=== PATIENT | female | born 1975 | race Caucasian/White ===

== ENCOUNTER 2016-04-25 09:40 | Outpatient (RCR) | payer MEDICARE, MEDICAID ==
[~2016-04-25 09:40] MED LIST: /ADVA50050; /ADVA50050 IN; /LAMO10TA OR; ABIL10TA OR; ADVAIR HFA; ALBU17IN2; ALBU17IN2 IN; AMBI10TA OR; AMIT25TA2 OR; ATIV1TAB2; CETI10TA OR; COLA100C2 OR; DEPA250T2 OR; DUONSOL IN; EFFE150C; EFFE150C OR; EFFE75CA75; EFFEXOR XR; FEXO30TA; FLECTOR; FLEXERIL; FLEXERIL PO; GAS-80CH; HALO10TA4 OR; IBUP600T OR; INVE6TAB3; KLON0.5T; KLON0.5T OR; KLON1TAB OR; LORA2TAB; NICO7DIS4 TD; PRIL40CA; PRIL40CA OR; PROV90AE; RISP2TAB12; RISP3TAB16; RISP4TAB; RISP4TAB OR; RITA20TA OR; SERO200T OR; TRAM50TA2; TRAZ100T; TRAZ150T; ULTRTA; ULTRTA OR
[2016-04-27] MEDS ORDERED: SYMB16INH INH (01:02)
[2016-04-27] MEDS ORDERED: CYMB60CA3 PO (01:02)
[2016-04-27] MEDS ORDERED: CYCL10TA PO (01:02)
[2016-04-27] MEDS ORDERED: IPRASOL4 INH (01:02)
[2016-04-27] MEDS ORDERED: KLON1TAB PO (01:02)
[2016-04-27] MEDS ORDERED: FLON1SPR (01:02)
[2016-04-27] MEDS ORDERED: LAMI1TAB8 PO (01:02)
[2016-04-27] MEDS ORDERED: VITA100037 PO (01:02)
[2016-04-27] MEDS ORDERED: SERO400T PO (01:02)
== END 2016-04-26 ==
LOC: M OT 09:40
PROVIDERS: ATTEND Nurse Practitioner Family
DX: Z51.89 Encounter for other specified aftercare (principal); S52.90 Unspecified fracture of unspecified forearm; X58.XXXA Exposure to other specified factors, initial encounter; Y92.89 Other specified places as the place of occurrence of the external cause; Y93.89 Activity, other specified; Y99.8 Other external cause status
CPT/HCPCS: 97010; 97110; 97165; G8984; G8985

== ENCOUNTER 2016-04-27 00:24 | Emergency (ER) | payer MEDICARE, MEDICAID ==
[~2016-04-27] VITALS: Ht 162.6 cm; Wt 88.0 kg
[2016-04-27 00:47] VITALS: BP 121/78
[2016-04-27] MEDS ORDERED: SERO400T PO (01:02)
[2016-04-27] MEDS ORDERED: FLON1SPR (01:02)
[2016-04-27] MEDS ORDERED: CYMB60CA3 PO (01:02)
[2016-04-27] MEDS ORDERED: CYCL10TA PO (01:02)
[2016-04-27] MEDS ORDERED: SYMB16INH INH (01:02)
[2016-04-27] MEDS ORDERED: IPRASOL4 INH (01:02)
[2016-04-27] MEDS ORDERED: KLON1TAB PO (01:02)
[2016-04-27] MEDS ORDERED: VITA100037 PO (01:02)
[2016-04-27] MEDS ORDERED: LAMI1TAB8 PO (01:02)
== END 2016-04-27 02:53 | disposition left against medical advice (07) ==
LOC: M ED 01:27
DX: R10.9 Unspecified abdominal pain (principal); Z53.21 Procedure and treatment not carried out due to patient leaving prior to being seen by health care provider

== ENCOUNTER → 2016-05-09 | Outpatient (CLI) | payer MEDICARE, MEDICAID ==
[~2016-05-09] MED LIST changes: +CYCL10TA PO; +CYMB60CA3 PO; +FLON1SPR; +IPRASOL4 INH; +KLON1TAB PO; +LAMI1TAB8 PO; +SERO400T PO; +SYMB16INH INH; +VITA100037 PO
[2016-05-09 13:32] LABS: BASO % 0.2 % (0.0-1.0); EOS # 0.2 K/mm3 (0.0-0.50); EOS % 3.6 % (0.0-3.0); LYMPH # 1.6 K/mm3 (1.5-4.5); MEAN CORPUSCULAR HEMOGLOBIN 26.7 pg (27.0-33.0); MEAN CORPUSCULAR HGB CONC 32.5 g/dl (32.0-36.5); MEAN CORPUSCULAR VOLUME 82.2 fl (80.0-96.0); MONO # 0.2 K/mm3 (0.0-0.8); MONO % 3.5 % (0.0-5.0); NEUTROPHILS # 3.4 K/mm3 (1.8-7.7); NEUTROPHILS % 62.1 % (36.0-66.0); RED CELL DISTRIBUTION WIDTH 14.9 % (11.5-14.5); WHITE BLOOD COUNT 5.4 K/mm3 (4.0-10.0)
[2016-05-09 13:41] LABS: ALBUMIN 3.7 GM/DL (3.2-5.2); ALBUMIN/GLOBULIN RATIO 1.12 (1.00-1.93); ALKALINE PHOSPHATASE 151 U/L (45-117); ALT/SGPT 21 U/L (12-78); ANION GAP 12 MEQ/L (8-16); AST/SGOT 12 U/L (15-37); BILIRUBIN,TOTAL 0.2 MG/DL (0.2-1.0); BLOOD UREA NITROGEN 7 MG/DL (7-18); CALCIUM LEVEL 9.2 MG/DL (8.5-10.1); CARBON DIOXIDE LEVEL 27 MEQ/L (21-32); CHLORIDE LEVEL 104 MEQ/L (98-107); CREATININE FOR GFR 1.05 MG/DL (0.55-1.02); FERRITIN 5 NG/ML (8-252); GLOMERULAR FILTRATION RATE > 60.0 (>60); GLUCOSE, FASTING 86 MG/DL (70-105); POTASSIUM SERUM 3.7 MEQ/L (3.5-5.1); SODIUM LEVEL 143 MEQ/L (136-145)
[2016-05-09 13:51] LABS: FOLATE 6.8 NG/ML; VITAMIN B12 LEVEL 261 PG/ML
[2016-05-11 07:40] LABS: ALBUMIN 4.27 GM/DL (3.29-5.55); GAMMA GLOBULIN % 11.2 % (11.1-18.8)
[2016-05-12 00:09] LABS: Lyme Disease IgG/IgM Antibodie <0.91 ISR (0.00-0.90); Lyme Disease IgM Ab Quantitati <0.80 index (0.00-0.79)
== END ==
LOC: M LAB 12:33
PROVIDERS: ATTEND Physician Assistant Medical
DX: M13.80 Other specified arthritis, unspecified site (principal); Z79.899 Other long term (current) drug therapy; E55.9 Vitamin D deficiency, unspecified

== ENCOUNTER 2016-06-04 11:12 | Emergency (ER) | payer MEDICARE, MEDICAID ==
[~2016-06-04] VITALS: Ht 162.6 cm; Wt 88.0 kg
[2016-06-04] MEDS ORDERED: PENT1TAB8 PO (11:23)
[2016-06-04] MEDS ORDERED: BREO1INH INH (11:23)
[2016-06-04 12:11] LABS: BASO % 0.5 % (0.0-1.0); EOS # 0.3 K/mm3 (0.0-0.50); EOS % 4.8 % (0.0-3.0); LARGE UNSTAINED CELL # 0.1 K/mm3 (0.0-0.4); LARGE UNSTAINED CELL % 1.5 % (0.0-4.0); LYMPH # 1.6 K/mm3 (1.5-4.5); LYMPH % 27.7 % (24.0-44.0); MEAN CORPUSCULAR HEMOGLOBIN 26.7 pg (27.0-33.0); MEAN CORPUSCULAR HGB CONC 31.5 g/dl (32.0-36.5); MEAN CORPUSCULAR VOLUME 84.7 fl (80.0-96.0); MONO # 0.3 K/mm3 (0.0-0.8); NEUTROPHILS # 3.2 K/mm3 (1.8-7.7); NEUTROPHILS % 60.4 % (36.0-66.0); PLATELET COUNT, AUTOMATED 303 k/mm3 (150-450); RED CELL DISTRIBUTION WIDTH 15.3 % (11.5-14.5); WHITE BLOOD COUNT 5.3 K/mm3 (4.0-10.0)
[2016-06-04 12:18] LABS: ANION GAP 6 MEQ/L (8-16); BLOOD UREA NITROGEN 8 MG/DL (7-18); CALCIUM LEVEL 8.5 MG/DL (8.5-10.1); CARBON DIOXIDE LEVEL 30 MEQ/L (21-32); CHLORIDE LEVEL 106 MEQ/L (98-107); CREATININE FOR GFR 1.06 MG/DL (0.55-1.02); GLOMERULAR FILTRATION RATE > 60.0 (>60); GLUCOSE, FASTING 92 MG/DL (70-105); SODIUM LEVEL 142 MEQ/L (136-145)
[2016-06-04 12:35] LABS: INR 1.03
--- NOTE | 2016-06-04 12:49 | REP ---
CT BRAIN WITHOUT CONTRAST: 06/04/2016. Clinical history: CVA symptoms. No prior study. Ventricles are generally symmetric and midline without dilatation or displacement. Third and fourth ventricles unremarkable. Basal ganglia intact. The bonilla-white junction differentiation well maintained. Cortical stripe preserved. No intra- or extra-axial hemorrhage, mass, mass effect or edema. Brainstem and cerebellum grossly intact. Basal cisterns intact. Visualized sinuses and mastoids are clear. The skull base and calvarium show no fracture or focal lesion. Impression: 1. No intracranial hemorrhage, acute infarct, edema, mass or abnormality of the basal cisterns. The white matter tracts were normal and bonilla-white junction differentiation intact. Cortical stripe preserved. 2. Sinuses and mastoids, skull base and calvarium all intact. Nothing acute. Signed by Robert Flores MD 06/04/2016 08:25 P
--- NOTE | 2016-06-04 13:08 | REP ---
PA CHEST: 06/04/2016. Comparison: AP portable chest 02/10/2013. Clinical history: CVA. Findings: Lungs adequately inflated. There is no infiltrate, effusion, atelectasis or mass. The heart, mediastinal and hilar contours are grossly intact. There is no dense consolidation, pneumothorax or widening of the mediastinum. Aorta is intact. The airway midline. Bones show no acute finding. No free air under the diaphragm. Impression: 1. No acute cardiopulmonary disease. Signed by Robert Flores MD 06/04/2016 08:26 P
[2016-06-04 17:28] VITALS: BP 109/70
--- NOTE | 2016-06-05 07:52 | REP ---
MRI BRAIN WITHOUT CONTRAST: 06/04/2016. Clinical history: TIA, left-sided weakness. Numbness left upper extremity. Comparison: CT brain this date. Technique: Sagittal T1 with axial T1, T2, FLAIR, diffusion weighted images with ADC mapping sequences and a gradient echo sequence. Findings: The ventricles are generally symmetric without midline shift. They are not abnormally dilated. Third and fourth ventricles unremarkable. Cortical stripe is preserved. Harrison white junction differentiation is maintained. Basal ganglia show no acute finding. In the periventricular, deep central and subcortical white matter, I do not see any significant hyperintense foci on the left. There is one small right frontal lobe subcortical T2 and FLAIR focus as a nonspecific finding. Corpus callosum showed no signal abnormality or atrophy. Third and fourth ventricles unremarkable. The optic chiasm and pituitary were normal. There is some cerebellar tonsillar ectopia less than 3 mm however. This is not felt to be significant. The seventh/eighth cranial nerve complexes and mastoids are symmetric. The sinuses showed some minor ethmoid sinus mucosal thickening anteriorly but were otherwise clear. Orbits and contents symmetric. The diffusion weighted images and ADC mapping sequences show no acute ischemia. Brainstem unremarkable. Cerebellum symmetric and intact. The gradient echo images show no evidence of hemorrhage or hemosiderin deposits. Impression: 1. No acute infarct, hemorrhage, edema or mass. 2. Punctate subcortical hyperintense focus on T2 and FLAIR in the white matter of the right frontal lobe as a nonspecific finding. No other significant white matter changes. 3. There is no atrophy, intracranial hemorrhage or hemosiderin deposits, vascular territory infarct or acute ischemia. 4. Lateral ventricles generally symmetric and normal size. No significant or acute finding visible. Signed by Robert Flores MD 06/05/2016 08:35 A
--- NOTE | 2016-06-05 20:51 | ECGEPIP ---
Stationary ECG Study [facility] - ED Test Date: 2016-06-04 Pat Name: SCOT ALVA Department: Room: - Gender: F Websphere Developer: shayy : 1975 Requested By: MALLORY Moses Order Number: [id number] Reading MD: Marielle Ortega Measurements Intervals [place] Rate: 93 P: 51 RI: 162 QRS: -8 QRSD: 95 T: 29 QT: 358 QTc: 447 Interpretive Statements SINUS RHYTHM MODERATE VOLTAGE CRITERIA FOR LVH, CONSIDER NORMAL VARIANT NSTTW ABNORMALITY SIMILAR 02/10/13 Electronically Signed On 06-05-2016 20:51:00 EDT by Marielle Ortega
== END 2016-06-04 17:48 | disposition home or self-care (01) ==
LOC: M ED 12:23
DX: R53.1 Weakness (principal)

== ENCOUNTER 2016-06-14 10:08 | Inpatient (IN) | payer MEDICARE, MEDICAID ==
[~2016-06-14] VITALS: Ht 162.6 cm; Wt 82.2 kg
[~2016-06-14 10:08] MED LIST changes: +BREO1INH INH; +PENT1TAB8 PO
--- NOTE | 2016-06-14 10:48 | REP ---
Head CT without contrast: History: CVA. Comparison study: June 04, 2016. CT findings: Bone window settings demonstrate an intact bony calvarium. There is no evidence of skull fracture or incidental bony calvarial lesion. The visualized paranasal sinuses appear clear. No intraorbital abnormality is seen. On soft tissue window setting images; the lateral, third, and fourth ventricles are normal in size and position. Harrison-white differentiation pattern is normal above and below the tentorium. There are is no evidence of intracranial hemorrhage. No mass, edema, infarction, or midline shift is seen. No extra-axial fluid collection is appreciated. Impression: Negative noncontrast head CT. Signed by Owen Silva MD 06/14/2016 10:40 A
--- NOTE | 2016-06-14 10:49 | REP ---
Portable chest: Single view. History: CVA. Comparison study: June 04, 2016. Findings: The lungs are well inflated and clear. EKG electrodes are seen. Pulmonary vasculature is not increased. Cardiomediastinal silhouette is unchanged and unremarkable. The pleural angles are sharp. Impression: No active disease. Signed by Owen Silva MD 06/14/2016 10:41 A
[2016-06-14 11:13] LABS: BASO % 0.7 % (0.0-1.0); EOS # 0.1 K/mm3 (0.0-0.50); EOS % 1.5 % (0.0-3.0); LARGE UNSTAINED CELL # 0.1 K/mm3 (0.0-0.4); LARGE UNSTAINED CELL % 1.7 % (0.0-4.0); LYMPH # 1.3 K/mm3 (1.5-4.5); LYMPH % 24.2 % (24.0-44.0); MEAN CORPUSCULAR HEMOGLOBIN 26.9 pg (27.0-33.0); MEAN CORPUSCULAR VOLUME 83.9 fl (80.0-96.0); MONO # 0.2 K/mm3 (0.0-0.8); MONO % 4.2 % (0.0-5.0); NEUTROPHILS # 3.5 K/mm3 (1.8-7.7); NEUTROPHILS % 67.6 % (36.0-66.0); PLATELET COUNT, AUTOMATED 265 k/mm3 (150-450); RED CELL DISTRIBUTION WIDTH 15.2 % (11.5-14.5); WHITE BLOOD COUNT 5.2 K/mm3 (4.0-10.0)
[2016-06-14 11:33] LABS: ANION GAP 5 MEQ/L (8-16); BLOOD UREA NITROGEN 8 MG/DL (7-18); CALCIUM LEVEL 8.9 MG/DL (8.5-10.1); CARBON DIOXIDE LEVEL 31 MEQ/L (21-32); CHLORIDE LEVEL 104 MEQ/L (98-107); CREATININE FOR GFR 0.99 MG/DL (0.55-1.02); GLOMERULAR FILTRATION RATE > 60.0 (>60); GLUCOSE, FASTING 110 MG/DL (70-105); POTASSIUM SERUM 4.4 MEQ/L (3.5-5.1); SODIUM LEVEL 140 MEQ/L (136-145)
--- NOTE | 2016-06-14 13:51 | REP ---
MR BRAIN WITHOUT CONTRAST: HISTORY: Left-sided weakness. COMPARISON: CT 06/14/2016. Several punctate areas of increased signal intensity on T2-weighted images are present in the subcortical white matter of the frontal lobes. There is no intraparenchymal hemorrhage, infarct, mass or midline shift. The ventricular system is normal in appearance. There is no extracerebral collection. The cerebellar tonsils extend 6 mm inferior through the foramen magnum consistent with cerebellar tonsillar ectopia. There is no syrinx in the visualize cervical spinal cord. The sinuses are clear. IMPRESSION: 1. There are several punctate areas of increased signal intensity in the subcortical white matter of the frontal lobes. This is a nonspecific finding. 2. Cerebellar tonsillar ectopia. Signed by Wes Kearney MD 06/14/2016 01:53 P
[2016-06-14 13:57] LABS: METHADONE URINE NEGATIVE (NEGATIVE)
[2016-06-14] MEDS ORDERED: QUET1TAB10 PO (14:16)
[2016-06-14] MEDS ORDERED: DRIS50002 PO (14:16)
[2016-06-14] MEDS ORDERED: ABIL1TAB5 PO (14:18)
[2016-06-14] MEDS ORDERED: ALBU17IN INH (14:18)
[2016-06-14] MEDS ORDERED: CYCL10TA PO (14:19)
[2016-06-14] MEDS ORDERED: STOO100C PO (14:19)
[2016-06-14] MEDS ORDERED: OMEP40CA2 PO (14:22)
[2016-06-14] MEDS ORDERED: ASPI81TA21 PO (14:23)
[2016-06-14] MEDS ORDERED: FERR325T3 PO (14:23)
--- NOTE | 2016-06-14 14:30 | REP ---
MRA BRAIN WITHOUT CONTRAST: HISTORY: Left-sided weakness. A small aneurysm is present arising from the anterior communicating artery. The aneurysm measures 1.4 x 1.3 mm. The aneurysm projects posterior from the anterior communicating artery. There is no other aneurysm or arteriovenous malformation. There are no atherosclerotic lesions. There is fenestration of the proximal basilar artery and A1 segment of the right anterior cerebral artery. The major intracranial vessels are patent. The vertebral arteries are equal in size. 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 Signed by Wes Kearney MD 06/14/2016 02:33 P
[2016-06-14] MEDS ORDERED: NORCO, ANEXSIA 5/325MG TABLET (HYDROcodone/ACETAMINOPHEN) PO ONE (14:45)
[2016-06-14] MEDS ORDERED: ALBUTEROL 90 MCG/ACT 8GM HFA INHALER INH PRN (16:00)
[2016-06-14 16:32] VITALS: BP 122/78
--- NOTE | 2016-06-14 16:38 | HPE ---
DATE OF ADMISSION: 06/14/2016 PRIMARY CARE PROVIDER: RICARDO Montero CHIEF COMPLAINT: Fall and left-sided weakness. HISTORY OF PRESENT ILLNESS: The patient is a 40-year-old female with significant psychiatric history for schizoaffective disorder and has been stable on medication for several years, who reportedly had left-sided weakness, dizziness and lightheadedness approximately on 06/04/2016. At that time, she was seen and evaluated here in our emergency room. She did have an MRI completed which was fairly unremarkable and she was discharged home. Her symptoms did gradually resolve. The patient tells me that once again her symptoms did recur this morning when she awoke at around 5:30 this morning. She waited and hoped that her symptoms would iliana. She had left-sided weakness in her left upper and lower extremity. She tells me that it feels as though her left arm and left leg felt like they were 1000 pounds. She also tells me that she had pain in and around her left eye and left amish during the same period. She tells me that it is improving but has not yet completely resolved. At the present time, once again, she tells me that it is improving. She denies chest pain, palpitations, lightheadedness, or dizziness. The patient tells me that she was walking from her kitchen to the bathroom and she collapsed. She did not fully lose consciousness. She did not hit her head. However, she tells me that her legs gave out from under her. She denies prodromal palpitations. However, she was feeling lightheaded. She denies shortness of breath. No loss of bladder or bowel. PAST MEDICAL HISTORY: 1. 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 2. Chronic obstructive pulmonary disease (COPD). 3. Chronic back pain. 4. Schizoaffective disorder. 5. Allergic rhinitis. HOME MEDICATIONS: - DuoNebs every six hours as needed for shortness of breath - vitamin D 50,000 units once a week - Breo Ellipta 100/25 once daily - Lamictal 150 mg daily - pentazocine/naloxone 50/0.5 every four hours as needed for pain - Ventolin HFA two puffs every four hours as needed for shortness of breath - Abilify 10 mg daily - aspirin 81 mg daily - Klonopin 1 mg by mouth twice a day - cyclobenzaprine 10 mg three times a day - Colace 100 mg by mouth twice a day - Cymbalta 50 mg twice a day - ferrous sulfate 325 mg by mouth three times a day - Flonase nasal spray daily - omeprazole 40 mg daily - Seroquel 600 mg at bedtime ALLERGIES: PHENAZOPYRIDINE, throat swelling, CEPHALOSPORIN, hives, swelling, CIPROFLOXACIN, FLUOXETINE, SULFA DRUGS, SULFA CROSS REACTORS, METAXALONE, intense pain, NAPROXEN and TETRACYCLINE cause nauseas and vomiting. PAST SURGICAL HISTORY: 1. Bilateral ulnar nerve surgery. 2. Left carpal tunnel release surgery. 3. "Back tumor removal surgery." SOCIAL HISTORY: The patient has a [id number] history. She is an active smoker. She occasionally uses tetrahydrocannabinol (THC). She is a lesbian and her girlfriend presents with her at bedside. FAMILY HISTORY: Noncontributory. REVIEW OF SYSTEMS: Negative other than in the history of present illness (HPI). PHYSICAL EXAMINATION: VITAL SIGNS: Temperature 98.6, pulse 76, respiratory rate 14, blood pressure 131/56, oxygen saturation 95% on room air. GENERAL: She is an obese, middle-aged, female laying flat in bed. She does not appear to be in any acute distress. NEUROLOGIC: Cranial nerves II-XII are grossly intact. Her face is symmetric. Tongue is midline. Uvula is midline. CARDIOVASCULAR EXAMINATION: S1, S2, regular. RESPIRATORY EXAMINATION: Clear. ABDOMINAL EXAMINATION: Obese, bowel sounds present. The abdomen is soft. EXTREMITIES: There is no clubbing, cyanosis, or edema. There appears to be 4/5 strength in the left upper and lower extremities, but otherwise no focal neurological deficits. She does complain that she has decreased sensation in the left upper and lower extremities. LABORATORY STUDIES: WBC 5.2, hemoglobin 11.6, hematocrit 36.1, platelet count is 265. Chemistry panel: Sodium 140, potassium 4.4, chloride 104, bicarbonate 31, BUN 8, creatinine 0.9. One set of cardiac enzymes is negative. INR is 1.0. Toxicology is positive for marijuana. A Lamictal level is pending. IMAGING STUDIES: The patient had a chest x-ray that revealed no active disease. She also had a CT scan of the head which was negative which was a noncontrast CT study. ASSESSMENT AND PLAN: This is a 40-year-old female with left-sided weakness and syncopal episode. 1. Left-sided weakness. The etiology remains unclear. She did have an MRI which was fairly unremarkable earlier this month. However, given her symptoms have recurred, I am requesting that she receive an MRI/MRA in the emergency room. I also think she would benefit from neurology consultation and as such I will place this. She will be admitted to the progressive care unit (PCU) with neurologic checks. Her syncopal episode may be related to her weakness. However, we will check a duplex of her carotids and also an EEG. We will check orthostatic and monitor her on telemetry for 24 hours. I will have physical therapy (PT) evaluate and treat her as well. Given that she did have a headache at the time of her symptoms, I do have concern that this may be an atypical migraine. However, the patient has presented twice to the emergency room with persistent symptoms to the point of falling. I think she would benefit from an inpatient neurology consultation. The patient did have a recent traumatic brain injury (TBI). Also, I do feel that it is less likely related to her current presentation. 2. Schizoaffective disorder. She has been on all of her current medications and has been stable for at least five years. We will continue with Abilify, Lamictal, clonazepam, Cymbalta, and Seroquel. 3. Iron deficiency anemia. Continue with ferrous sulfate. 4. Chronic back pain. Continue with Flexeril. We will supplement her non-formulary home medication with Klemme. 5. Gastroesophageal reflux disease. Continue with Prilosec. 6. Tobacco use. Cessation counseling offered. I have offered her a nicotine patch which she did not wish to have at this time. 7. Tetrahydrocannabinol (THC) use. Cessation counseling offered. 8. Chronic obstructive pulmonary disease (COPD). Continue with albuterol and DuoNebs as needed. 9. Deep vein thrombosis (DVT) prophylaxis. The patient will be on Lovenox. DISPOSITION: The patient is admitted to the progressive care unit (PCU) to [facility] who will continue following the patient at 7:00 a.m.
[2016-06-14] MEDS ORDERED: hydrALAZINE INJ 20 MG/ML VIAL As Ordered ONE (17:19)
[2016-06-14 17:37] VITALS: BP 117/70
[2016-06-14] MEDS: CYCLOBENZAPRINE 10 MG TAB PO SCH ×2 (18:13→21:48)
[2016-06-14] MEDS: OMEPRAZOLE 20 MG CAP PO SCH (18:13)
[2016-06-14] MEDS: ASPIRIN 81 MG ENTERIC TAB PO SCH (18:13)
[2016-06-14] MEDS: lamoTRIgine 100MG TAB PO SCH (18:14)
[2016-06-14] MEDS: FERROUS SULFATE 325MG TAB PO SCH ×2 (18:14→21:48)
[2016-06-14 18:32] VITALS: BP_SYST 110; BP_SYST 115; BP_DIAS 69; BP_DIAS 73
[2016-06-14 20:00] VITALS: BP 116/59
[2016-06-14] MEDS: NORCO, ANEXSIA 5/325MG TABLET (HYDROcodone/ACETAMINOPHEN) PO PRN (20:13)
--- NOTE | 2016-06-14 20:16 | ECGEPIP ---
Stationary ECG Study [facility] - ED Test Date: 2016-06-14 Pat Name: SCOT ALVA Department: Room: - Gender: F Parasitology Teacher: JYandel : 1975 Requested By: Marielle Ortega Order Number: [id number] Reading MD: Marielle Ortega Measurements Intervals [place] Rate: 102 P: 60 IA: 157 QRS: -5 QRSD: 77 T: 31 QT: 329 QTc: 429 Interpretive Statements SINUS TACHYCARDIA NONSPECIFIC T-WAVE ABNORMALITY ABNORMAL RHYTHM ECG INCREASED RATE 06/04/16 Electronically Signed On 06-14-2016 20:16:04 EDT by Marielle Ortega
[2016-06-14] MEDS ORDERED: SLF 3 ML SYR IV PRN (20:45)
[2016-06-14] MEDS: clonazePAM 1 MG TAB PO SCH (21:48)
[2016-06-14] MEDS: DOCUSATE SODIUM 100 MG CAP PO SCH (21:48)
[2016-06-14] MEDS: DULoxetine 30 MG CAP (CYMBALTA) PO SCH (21:48)
[2016-06-14] MEDS: ARIPiprazole 10 MG TAB PO SCH (22:14)
[2016-06-14] MEDS: QUEtiapine FUMARATE 100 MG TAB PO SCH (22:14)
[2016-06-14] MEDS: SLF 3 ML SYR IV SCH (22:14)
[2016-06-14] MEDS: FLUTICASONE PROP 0.05% NASAL SPRAY 16 GM (FLONASE) SCH (22:14)
[2016-06-15] VITALS (8 sets, daily range): BP systolic 104–123; BP diastolic 56–71; PULSE 95
[2016-06-15 06:00] LABS: MEAN CORPUSCULAR HEMOGLOBIN 26.4 pg (27.0-33.0); MEAN CORPUSCULAR HGB CONC 31.6 g/dl (32.0-36.5); MEAN CORPUSCULAR VOLUME 83.6 fl (80.0-96.0); RED CELL DISTRIBUTION WIDTH 15.5 % (11.5-14.5); WHITE BLOOD COUNT 4.5 K/mm3 (4.0-10.0)
[2016-06-15] MEDS: SLF 3 ML SYR IV SCH ×3 (06:02→20:03)
[2016-06-15 06:22] LABS: ANION GAP 6 MEQ/L (8-16); BLOOD UREA NITROGEN 8 MG/DL (7-18); CALCIUM LEVEL 8.4 MG/DL (8.5-10.1); CARBON DIOXIDE LEVEL 29 MEQ/L (21-32); CHLORIDE LEVEL 104 MEQ/L (98-107); CHOLESTEROL LEVEL 251 MG/DL (<200); CREATININE FOR GFR 0.94 MG/DL (0.55-1.02); GLOMERULAR FILTRATION RATE > 60.0 (>60); GLUCOSE, FASTING 103 MG/DL (70-105); POTASSIUM SERUM 3.9 MEQ/L (3.5-5.1); SODIUM LEVEL 139 MEQ/L (136-145); TRIGLYCERIDES LEVEL 149 MG/DL (<150)
--- NOTE | 2016-06-15 08:07 | REP ---
Duplex carotid sonography: History: Syncope. No comparison studies. Findings: Antegrade flow was observed in both vertebral arteries. Right carotid: The right common carotid artery is unremarkable on two-dimensional scanning. There is minimal soft plaquing in the bulb, proximal ICA on the right side. Color flow and spectral Doppler interrogation are unremarkable on the right. Velocity chart right carotid: Right CCA PSV 76 cm/s Right ICA PSV 59 EDV 29 Right ECA PSV 60 Right ICA/CCA ratio normal 0.77 Impression: 0-15% category narrowing the right ICA. Left carotid: The left common carotid artery is unremarkable as well on two-dimensional scanning. There is minimal soft plaquing in the proximal ICA. Color flow and spectral Doppler interrogation are unremarkable on the left. Velocity chart left carotid: Left CCA PSV 75 cm/s Left ICA PSV 58 EDV 26 Left ECA PSV 74 Left ICA/CCA ratio normal 0.77. Impression: 0-15% category narrowing in the left ICA by Doppler velocity Criteria. Signed by Owen Silva MD 06/15/2016 01:37 P
[2016-06-15] MEDS: lamoTRIgine 100MG TAB PO SCH (09:43)
[2016-06-15] MEDS: OMEPRAZOLE 20 MG CAP PO SCH (09:43)
[2016-06-15] MEDS: ENOXAPARIN 40 MG/0.4 ML SYRINGE (J1650) SC SCH (09:43)
[2016-06-15] MEDS: DULoxetine 30 MG CAP (CYMBALTA) PO SCH ×2 (09:43→20:02)
[2016-06-15] MEDS: CYCLOBENZAPRINE 10 MG TAB PO SCH ×3 (09:44→20:02)
[2016-06-15] MEDS: DOCUSATE SODIUM 100 MG CAP PO SCH ×2 (09:44→20:02)
[2016-06-15] MEDS: ASPIRIN 81 MG ENTERIC TAB PO SCH (09:44)
[2016-06-15] MEDS: FERROUS SULFATE 325MG TAB PO SCH ×3 (09:44→20:02)
[2016-06-15] MEDS: clonazePAM 1 MG TAB PO SCH ×2 (09:44→20:02)
[2016-06-15] MEDS: NORCO, ANEXSIA 5/325MG TABLET (HYDROcodone/ACETAMINOPHEN) PO PRN ×2 (09:51→20:11)
[2016-06-15] MEDS: ARIPiprazole 10 MG TAB PO SCH (11:04)
[2016-06-15] MEDS: FLUTICASONE PROP 0.05% NASAL SPRAY 16 GM (FLONASE) SCH (11:08)
--- NOTE | 2016-06-15 12:47 | IPNPDOC ---
Subjective Date Seen The patient was seen on 06/15/16. Subjective Chief Complaint/HPI The patient is a 40-year-old female admitted with a reason for visit of Syncope And Collapse. Events since last encounter no complaints over night , weakness has resolved. Objective Physical Examination General Exam: Positive: Alert, Cooperative, No Acute Distress Eye Exam: Positive: Conjunctiva & lids normal, EOMI, PERRLA, Negative: Sclera icteric ENT Exam: Positive: Atraumatic, Mucous membr. moist/pink, Pharynx Normal Neck Exam: Positive: Supple, Negative: JVD, thyromegaly Chest Exam: Positive: Clear to auscultation, Normal air movement Heart Exam: Positive: Normal S1, Normal S2, Rate Normal, Regular Rhythm, Negative: Murmurs, Rubs Telemetry: Positive: No significant arrhythmia Abdomen Exam: Positive: Normal bowel sounds, Soft, Negative: Hepatospenomegaly, Tenderness Extremity Exam: Positive: Normal pulses, Negative: Clubbing, Cyanosis, Edema Skin Exam: Positive: Nl turgor and temperature, Negative: Breakdown, Rash Assessment /Plan Problems (1) Weakness Status: Acute Problem Text: left sided transient weakness causing her to loose muscle strength on that side and collapse. Had some associated retroorbital pain and headache MRi and MRI negative for acute CVA. does have some non specific white matter subcortical areas of increased signal intensity in the frontal lobes also has has cerebellar tonsillar ectopia. eeg for seizure focus ? complicated / atypical migraine neurology to evaluate. (2) Syncope and collapse Status: Acute Problem Text: will monitor under telemetry. (3) COPD (chronic obstructive pulmonary disease) Status: Chronic (4) Schizoaffective disorder Status: Chronic Problem Text: continue home meds (5) Allergic rhinitis Status: Chronic (6) Cerebral aneurysm Status: Chronic Problem Text: 1.4 mm on the anterior communicating artery. (7) Anemia Status: Chronic Plan/VTE VTE Prophylaxis Ordered?: Yes VS, I&O, 24H, Fishbone Vital Signs/I&O Vital Signs Date Time Temp Pulse Resp B/P Pulse Ox O2 Delivery O2 Flow Rate FiO2 06/15/16 11:40 97.0 93 19 120/56 98 Room Air I&O- Last 24 Hours up to 6 AM 06/15/16 06:00 Intake Total 1020 ml Output Total 1100 ml Balance -80 ml Laboratory Data 24H LABS Laboratory Tests 2 06/14/16 12:42: Urine Amphetamines Screen NEGATIVE, Urine Benzodiazepines Screen NEGATIVE, Urine Opiates Screen NEGATIVE, Urine Barbiturates Screen NEGATIVE, Urine Cannabinoids Screen POSITIVEH, Urine Cocaine Metabolite Screen NEGATIVE, Urine Methadone Screen NEGATIVE, Urine Phencyclidine Screen NEGATIVE 06/15/16 05:24: Anion Gap 6L, Calcium Level 8.4L, Triglycerides Level 149, Cholesterol Level 251H, HDL Cholesterol 37L, LDL Cholesterol 184.2H, Cholesterol/HDL Ratio 6.783H , Estimated Mean Plasma Glucose 131H, Glomerular Filtration Rate > 60.0, Hemoglobin A1c 6.2, Non-HDL Cholesterol (LDL + VLDL) 214, Thyroid Stimulating Hormone (TSH) 2.090 CBC/BMP Laboratory Tests 06/15/16 05:24 Red Blood Count 4.31, Mean Corpuscular Volume 83.6, Mean Corpuscular Hemoglobin 26.4 L, Mean Corpuscular Hemoglobin Concent 31.6 L, Red Cell Distribution Width 15.5 H DELL MARCIAL MD Jun 15, 2016 12:47
[2016-06-15] MEDS: QUEtiapine FUMARATE 100 MG TAB PO SCH (20:12)
[2016-06-16] VITALS: PULSE 92
[2016-06-16 04:00] VITALS: PULSE 86
[2016-06-16 04:26] VITALS: BP 112/60
[2016-06-16 05:47] LABS: MEAN CORPUSCULAR HEMOGLOBIN 26.2 pg (27.0-33.0); MEAN CORPUSCULAR HGB CONC 30.7 g/dl (32.0-36.5); MEAN CORPUSCULAR VOLUME 85.3 fl (80.0-96.0); RED CELL DISTRIBUTION WIDTH 15.6 % (11.5-14.5); WHITE BLOOD COUNT 5.5 K/mm3 (4.0-10.0)
[2016-06-16] MEDS: SLF 3 ML SYR IV SCH (06:00)
[2016-06-16 06:04] LABS: ANION GAP 5 MEQ/L (8-16); BLOOD UREA NITROGEN 9 MG/DL (7-18); CALCIUM LEVEL 8.7 MG/DL (8.5-10.1); CARBON DIOXIDE LEVEL 28 MEQ/L (21-32); CHLORIDE LEVEL 105 MEQ/L (98-107); CREATININE FOR GFR 1.02 MG/DL (0.55-1.02); GLOMERULAR FILTRATION RATE > 60.0 (>60); GLUCOSE, FASTING 101 MG/DL (70-105); POTASSIUM SERUM 3.9 MEQ/L (3.5-5.1); SODIUM LEVEL 138 MEQ/L (136-145)
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
[2016-06-16 08:00] VITALS: BP 129/67
[2016-06-16] MEDS: DULoxetine 30 MG CAP (CYMBALTA) PO SCH (08:21)
[2016-06-16] MEDS: OMEPRAZOLE 20 MG CAP PO SCH (08:21)
[2016-06-16] MEDS: lamoTRIgine 100MG TAB PO SCH (08:21)
[2016-06-16] MEDS: clonazePAM 1 MG TAB PO SCH (08:21)
[2016-06-16] MEDS: ASPIRIN 81 MG ENTERIC TAB PO SCH (08:22)
[2016-06-16] MEDS: NORCO, ANEXSIA 5/325MG TABLET (HYDROcodone/ACETAMINOPHEN) PO PRN (08:22)
[2016-06-16] MEDS: ARIPiprazole 10 MG TAB PO SCH (08:22)
[2016-06-16] MEDS: CYCLOBENZAPRINE 10 MG TAB PO SCH (08:23)
[2016-06-16] MEDS: ENOXAPARIN 40 MG/0.4 ML SYRINGE (J1650) SC SCH (08:23)
[2016-06-16] MEDS: FERROUS SULFATE 325MG TAB PO SCH (08:23)
[2016-06-16] MEDS: DOCUSATE SODIUM 100 MG CAP PO SCH (08:23)
[2016-06-16] MEDS: FLUTICASONE PROP 0.05% NASAL SPRAY 16 GM (FLONASE) SCH (08:24)
[2016-06-19 00:11] LABS: PROTEIN C ANTIGEN 116 % (60-150); PROTEIN S ANTIGEN FREE 129 % (57-157); PROTEIN S ANTIGEN TOTAL 142 % (60-150)
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
== END 2016-06-16 11:10 | disposition home health service (06) | DRG 556 ==
LOC: EDBD 10:08 → M ED 11:43 → M ED INP 15:19 → M PCU 17:25
PROVIDERS: ADMIT Internal Medicine; ATTEND Internal Medicine Nephrology
DX: M62.81 Muscle weakness (generalized) (principal); R55 Syncope and collapse; E66.9 Obesity, unspecified; F25.9 Schizoaffective disorder, unspecified; J30.9 Allergic rhinitis, unspecified; K21.9 Gastro-esophageal reflux disease without esophagitis; J44.9 Chronic obstructive pulmonary disease, unspecified; I67.1 Cerebral aneurysm, nonruptured; F12.10 Cannabis abuse, uncomplicated; M54.5 Low back pain; F17.210 Nicotine dependence, cigarettes, uncomplicated; M54.2 Cervicalgia; D50.9 Iron deficiency anemia, unspecified; Z87.820 Personal history of traumatic brain injury; Z79.51 Long term (current) use of inhaled steroids; Z79.82 Long term (current) use of aspirin; Z79.899 Other long term (current) drug therapy; Z88.1 Allergy status to other antibiotic agents; Z88.2 Allergy status to sulfonamides; Z88.6 Allergy status to analgesic agent; Z88.8 Allergy status to other drugs, medicaments and biological substances; Z87.81 Personal history of (healed) traumatic fracture

== ENCOUNTER 2016-07-23 23:51 | Emergency (ER) | payer MEDICARE, MEDICAID ==
[~2016-07-23] VITALS: Ht 162.6 cm; Wt 88.0 kg
[~2016-07-23 23:51] MED LIST changes: +ABIL1TAB5 PO; +ALBU17IN INH; +ASPI81TA21 PO; +DRIS50002 PO; +FERR325T3 PO; +OMEP40CA2 PO; +QUET1TAB10 PO; +STOO100C PO
[2016-07-24 01:39] VITALS: BP 146/103
--- NOTE | 2016-07-24 08:24 | REP ---
Clinical: Trauma. Technique: AP, lateral, bilateral oblique views of the left knee. Comparison: 12/17/2013. Findings: No acute fracture dislocation is appreciated. Irregularity involving the fibular head suggests old injury. The tibiofemoral and patellofemoral joint spaces appear normal. No obvious effusion. No significant degenerative changes. Impression: No acute fracture or dislocation. Signed by Henrik Finnegan MD 07/24/2016 08:16 A
== END 2016-07-24 01:42 | disposition home or self-care (01) ==
LOC: M ED 07-24 00:16
DX: S83.422A Sprain of lateral collateral ligament of left knee, initial encounter (principal); X50.1XXA Overexertion from prolonged static or awkward postures, initial encounter; Y92.099 Unspecified place in other non-institutional residence as the place of occurrence of the external cause; Y93.01 Activity, walking, marching and hiking; Y99.9 Unspecified external cause status

== ENCOUNTER 2016-08-05 07:41 | Emergency (ER) | payer MEDICARE, MEDICAID ==
[~2016-08-05] VITALS: Ht 162.6 cm; Wt 79.8 kg
[2016-08-05] MEDS ORDERED: RISP2TAB30 PO (07:49)
--- NOTE | 2016-08-05 08:56 | REP ---
Left elbow for views: Comparison is a left forearm dated 03/08/2012. There is internal fixation of the olecranon on the current study with a stabilization plate. This was not present previously. Mineralization and joint spaces are normal. There is no acute fracture or dislocation. The stabilization plate add olecranon are in satisfactory positions alignment on all views. There is no joint effusion. There is significant soft tissue edema posteriorly compatible with olecranon bursitis. This should be correlated with clinical findings. Signed by Jeff Miranda MD 08/05/2016 08:47 A
[2016-08-05] MEDS ORDERED: PRED20TA PO (09:43)
[2016-08-05 09:47] VITALS: BP 132/88
== END 2016-08-05 09:49 | disposition home or self-care (01) ==
LOC: M ED 08:53
DX: M70.22 Olecranon bursitis, left elbow (principal)

== ENCOUNTER 2016-10-15 08:42 | Emergency (ER) | payer MEDICARE, MEDICAID ==
[~2016-10-15] VITALS: Ht 162.6 cm; Wt 80.0 kg
[2016-10-15 08:42] VITALS: BP 117/66
[~2016-10-15 08:42] MED LIST changes: +ABIL10TA9 PO; -ABIL1TAB5 PO; +PRED20TA PO; +RISP2TAB32 PO; -VITA100037 PO; +VITA100067 PO
[2016-10-15 10:18] LABS: MEAN CORPUSCULAR HEMOGLOBIN 29.9 pg (27.0-33.0); MEAN CORPUSCULAR VOLUME 87.9 fl (80.0-96.0); RED CELL DISTRIBUTION WIDTH 13.2 % (11.5-14.5); WHITE BLOOD COUNT 8.7 K/mm3 (4.0-10.0)
[2016-10-15 10:42] LABS: ERYTHROCYTE SEDIMENTATION RATE 30 mm/hr (0-20)
--- NOTE | 2016-10-15 10:43 | REP ---
Right ankle series: Four views. History: Swelling and pain. Findings: Four views of the right ankle demonstrate marked anterolateral soft-tissue swelling. A tiny cortical irregularity at the distal fibular tip may reflect a chip fracture. No other fracture is seen. Ankle mortise is intact. Impression: Marked anterolateral soft-tissue swelling. Suspect a tiny distal fibular chip fracture. Signed by Owen Silva MD 10/15/2016 11:08 A
[2016-10-15 10:54] LABS: BASOPHILS 3 % (0-4); EOSINOPHILS 2 % (0-5)
[2016-10-15] MEDS ORDERED: TYLE325T5 PO (10:55)
[2016-10-15] MEDS ORDERED: ACETAMINOPHEN 325 MG TAB PO ONE (11:00)
[2016-10-15] MEDS ORDERED: KETOROLAC 30 MG/ML VIAL (J1885) IM ONE (11:00)
== END 2016-10-15 11:07 | disposition home or self-care (01) ==
LOC: M ED 08:42
DX: S82.391A Other fracture of lower end of right tibia, initial encounter for closed fracture (principal); J44.9 Chronic obstructive pulmonary disease, unspecified; Z72.0 Tobacco use; X58.XXXA Exposure to other specified factors, initial encounter; Y92.89 Other specified places as the place of occurrence of the external cause; Y93.89 Activity, other specified; Y99.9 Unspecified external cause status

== ENCOUNTER 2016-10-22 11:52 | Emergency (ER) | payer MEDICARE, MEDICAID ==
[~2016-10-22] VITALS: Ht 162.6 cm; Wt 87.2 kg
[~2016-10-22 11:52] MED LIST changes: +TYLE325T5 PO
[2016-10-22] MEDS ORDERED: IBUP200C10 PO (12:05)
[2016-10-22 13:29] LABS: BASO % 0.6 % (0.0-1.0); EOS # 0.2 K/mm3 (0.0-0.50); EOS % 3.3 % (0.0-3.0); LARGE UNSTAINED CELL # 0.1 K/mm3 (0.0-0.4); LARGE UNSTAINED CELL % 0.9 % (0.0-4.0); LYMPH # 1.8 K/mm3 (1.5-4.5); LYMPH % 26.3 % (24.0-44.0); MEAN CORPUSCULAR HEMOGLOBIN 29.6 pg (27.0-33.0); MEAN CORPUSCULAR HGB CONC 33.8 g/dl (32.0-36.5); MEAN CORPUSCULAR VOLUME 87.5 fl (80.0-96.0); MONO # 0.3 K/mm3 (0.0-0.8); MONO % 4.2 % (0.0-5.0); NEUTROPHILS # 4.3 K/mm3 (1.8-7.7); NEUTROPHILS % 64.6 % (36.0-66.0); PLATELET COUNT, AUTOMATED 275 k/mm3 (150-450); RED CELL DISTRIBUTION WIDTH 13.4 % (11.5-14.5); WHITE BLOOD COUNT 6.6 K/mm3 (4.0-10.0)
[2016-10-22 13:58] LABS: ANION GAP 7 MEQ/L (8-16); BLOOD UREA NITROGEN 10 MG/DL (7-18); CALCIUM LEVEL 9.4 MG/DL (8.5-10.1); CARBON DIOXIDE LEVEL 31 MEQ/L (21-32); CHLORIDE LEVEL 104 MEQ/L (98-107); CREATININE FOR GFR 0.92 MG/DL (0.55-1.02); FREE T4 1.05 NG/DL (0.76-1.46); GLOMERULAR FILTRATION RATE > 60.0 (>60); GLUCOSE, FASTING 88 MG/DL (70-105); MAGNESIUM LEVEL 2.1 MG/DL (1.8-2.4); POTASSIUM SERUM 5.1 MEQ/L (3.5-5.1); SODIUM LEVEL 142 MEQ/L (136-145)
[2016-10-22] MEDS ORDERED: KETOROLAC 30 MG/ML VIAL (J1885) IV ONE (14:30)
[2016-10-22] MEDS ORDERED: METOCLOPRAMIDE INJ 10MG/2ML VIAL (J2765) IV ONE (14:30)
--- NOTE | 2016-10-22 14:40 | REP ---
CT Head without contrast HISTORY: Syncope COMPARISON: 06/14/1969 There is no intraparenchymal hemorrhage, acute infarct, mass or midline shift. The ventricular system is normal in appearance. There is no extra cerebral collection. There is no fracture. The visualized sinuses are clear. IMPRESSION: There is no intracranial lesion. Signed by Wes Kearney MD 10/22/2016 02:32 P
--- NOTE | 2016-10-22 14:57 | REP ---
CT CERVICAL SPINE WITHOUT CONTRAST: HISTORY: Syncope. There is no acute fracture or subluxation. A disc bulge is present at the C3-4 level. There is minimal narrowing of the spinal canal. Bilateral uncinate process hypertrophy is present. This produces minimal narrowing of the C3 neural foramina. The remaining neural foramina are patent. The intervertebral discs are normal in height. IMPRESSION: 1. There is no acute fracture or subluxation. 2. There is cervical spondylosis at the C3-4 level. Signed by eWs Kearney MD 10/22/2016 03:01 P
[2016-10-22 15:17] VITALS: BP 152/77
--- NOTE | 2016-10-23 08:38 | ECGEPIP ---
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
== END 2016-10-22 15:31 | disposition home or self-care (01) ==
LOC: M ED 11:52
DX: G43.909 Migraine, unspecified, not intractable, without status migrainosus (principal); J44.9 Chronic obstructive pulmonary disease, unspecified; F25.9 Schizoaffective disorder, unspecified; Z72.0 Tobacco use; Z87.820 Personal history of traumatic brain injury
CPT/HCPCS: 70450; 72125; 80048; 82550; 82553; 83735; 84439; 84443; 84484; 85025; 93005; 93041; 94760; 96374; 96375; 99285; J1885; J2765

== ENCOUNTER 2016-11-23 08:01 | Outpatient (RCR) | payer MEDICARE, MEDICAID ==
[~2016-11-23 08:01] MED LIST changes: +IBUP200C10 PO
== END 2016-11-26 ==
LOC: M PT 08:01
PROVIDERS: ATTEND Physician Assistant Surgical
DX: Z51.81 Encounter for therapeutic drug level monitoring (principal); S93.401S Sprain of unspecified ligament of right ankle, sequela; X58.XXXS Exposure to other specified factors, sequela
CPT/HCPCS: 97110; 97161; G8978; G8979

== ENCOUNTER 2016-12-22 08:53 | Emergency (ER) | payer MEDICARE, MEDICAID ==
[~2016-12-22] VITALS: Ht 162.6 cm; Wt 85.5 kg
[2016-12-22] MEDS ORDERED: SYMB80INH INH (09:08)
[2016-12-22] MEDS ORDERED: AUGM875T28 PO (09:58)
[2016-12-22] MEDS ORDERED: IPRASOL4 IN (09:58)
[2016-12-22] MEDS ORDERED: PRED20TA PO (09:58)
[2016-12-22] MEDS ORDERED: IPRATROPIUM 0.5MG/ALBUTEROL 2.5MG INH SOL UD 3ML (DUONEB)(J7620) NEB ONE (10:00)
[2016-12-22 10:34] VITALS: BP 133/85
== END 2016-12-22 10:36 | disposition home or self-care (01) ==
LOC: M ED 08:53
DX: J44.1 Chronic obstructive pulmonary disease with (acute) exacerbation (principal); J20.9 Acute bronchitis, unspecified; G43.909 Migraine, unspecified, not intractable, without status migrainosus; F41.9 Anxiety disorder, unspecified; F33.9 Major depressive disorder, recurrent, unspecified; F43.10 Post-traumatic stress disorder, unspecified; F25.9 Schizoaffective disorder, unspecified; D50.9 Iron deficiency anemia, unspecified; E78.00 Pure hypercholesterolemia, unspecified; G89.29 Other chronic pain; M54.6 Pain in thoracic spine; M54.2 Cervicalgia; M25.512 Pain in left shoulder; M25.562 Pain in left knee; Z86.73 Personal history of transient ischemic attack (TIA), and cerebral infarction without residual deficits; Z79.899 Other long term (current) drug therapy; Z79.82 Long term (current) use of aspirin; Z88.1 Allergy status to other antibiotic agents; Z88.2 Allergy status to sulfonamides; Z88.8 Allergy status to other drugs, medicaments and biological substances; F17.210 Nicotine dependence, cigarettes, uncomplicated

== ENCOUNTER → 2016-12-23 | Outpatient (CLI) | payer MEDICARE, MEDICAID ==
[~2016-12-23] MED LIST changes: +AUGM875T28 PO; +IPRASOL4 IN; +SYMB80INH INH
== END ==
LOC: M LAB 06:37
PROVIDERS: ATTEND Psychiatry & Neurology Neurology
DX: E11.9 Type 2 diabetes mellitus without complications (principal); E07.9 Disorder of thyroid, unspecified; Z86.73 Personal history of transient ischemic attack (TIA), and cerebral infarction without residual deficits

== ENCOUNTER 2017-02-08 15:08 | Emergency (ER) | payer MEDICARE, MEDICAID ==
[~2017-02-08] VITALS: Ht 162.6 cm; Wt 83.6 kg
[2017-02-08] MEDS ORDERED: METOCLOPRAMIDE INJ 10MG/2ML VIAL (J2765) IV ONE (15:45)
[2017-02-08] MEDS ORDERED: KETOROLAC 30 MG/ML VIAL (J1885) IV ONE (15:45)
[2017-02-08 16:58] VITALS: BP 123/75
== END 2017-02-08 17:06 | disposition home or self-care (01) ==
LOC: M ED 15:08 → EDBD 15:08 → M ED 17:06
DX: G43.909 Migraine, unspecified, not intractable, without status migrainosus (principal); F20.9 Schizophrenia, unspecified; F17.210 Nicotine dependence, cigarettes, uncomplicated; E78.00 Pure hypercholesterolemia, unspecified; Z79.899 Other long term (current) drug therapy; Z79.82 Long term (current) use of aspirin; Z88.8 Allergy status to other drugs, medicaments and biological substances; Z88.1 Allergy status to other antibiotic agents; Z88.2 Allergy status to sulfonamides; Z86.73 Personal history of transient ischemic attack (TIA), and cerebral infarction without residual deficits
CPT/HCPCS: 96374; 99284; J1885

== ENCOUNTER → 2017-03-28 | Outpatient (REF) | payer MEDICARE, MEDICAID ==
[2017-03-28 12:53] LABS: HEMATOCRIT 43.6 % (36.0-47.0); HEMOGLOBIN 14.5 g/dl (12.0-16.0); MEAN CORPUSCULAR HEMOGLOBIN 30.1 pg (27.0-33.0); MEAN CORPUSCULAR HGB CONC 33.3 g/dl (32.0-36.5); MEAN CORPUSCULAR VOLUME 90.5 fl (80.0-96.0); PLATELET COUNT, AUTOMATED 287 10^3/uL (150-450); RED BLOOD COUNT 4.82 10^6/uL (4.00-5.40); RED CELL DISTRIBUTION WIDTH 13.1 % (11.5-14.5); WHITE BLOOD COUNT 8.5 10^3/uL (4.0-10.0)
[2017-03-28 13:47] LABS: IRON (FE) 75 UG/DL (50-170)
[2017-03-28 13:53] LABS: TOTAL 25(OH) VITAMIN D 50.4 NG/ML (30.0-100.0)
== END ==
LOC: M SFHCPLAZ 10:12
DX: D50.9 Iron deficiency anemia, unspecified (principal); E55.9 Vitamin D deficiency, unspecified
CPT/HCPCS: 83540

== ENCOUNTER → 2017-04-26 | Outpatient (CLI) | payer MEDICARE, MEDICAID ==
[2017-04-26 14:09] LABS: ESTIMATED AVERAGE GLUCOSE 120 MG/DL (60-110); HEMOGLOBIN A1c 5.8 %
[2017-04-26 14:41] LABS: ALBUMIN 3.7 GM/DL (3.2-5.2); ALBUMIN/GLOBULIN RATIO 1.23 (1.00-1.93); ALKALINE PHOSPHATASE 114 U/L (45-117); ALT/SGPT 23 U/L (12-78); ANION GAP 7 MEQ/L (8-16); AST/SGOT 14 U/L (7-37); BILIRUBIN,TOTAL 0.3 MG/DL (0.2-1.0); BLOOD UREA NITROGEN 12 MG/DL (7-18); CALCIUM LEVEL 8.6 MG/DL (8.5-10.1); CARBON DIOXIDE LEVEL 27 MEQ/L (21-32); CHLORIDE LEVEL 105 MEQ/L (98-107); CHOLESTEROL LEVEL 253 MG/DL (<200); CHOLESTEROL RISK RATIO 7.027 (<5); CREATININE FOR GFR 0.99 MG/DL (0.55-1.30); GLOMERULAR FILTRATION RATE > 60.0 (>60); GLUCOSE, FASTING 122 MG/DL (70-100); HDL CHOLESTEROL 36 MG/DL (>40); LDL CHOLESTEROL 148.4 MG/DL (<100); NON-HDL-C 217 MG/DL; POTASSIUM SERUM 4.2 MEQ/L (3.5-5.1); SODIUM LEVEL 139 MEQ/L (136-145); TOTAL PROTEIN 6.7 GM/DL (6.4-8.2); TRIGLYCERIDES LEVEL 343 MG/DL (<150)
== END ==
LOC: M LAB 13:18
DX: F25.9 Schizoaffective disorder, unspecified (principal); Z79.899 Other long term (current) drug therapy
CPT/HCPCS: 84443

== ENCOUNTER → 2017-06-14 | Outpatient (CLI) | payer MEDICARE, MEDICAID | LOC: M RAD 12:56 | DX: M25.522 Pain in left elbow (principal); Z98.890 Other specified postprocedural states | CPT/HCPCS: 73080 ==

== ENCOUNTER 2017-06-20 14:03 | Emergency (ER) | payer MEDICARE, MEDICAID ==
[2017-06-20 15:31] LABS: BASO % 0.6 % (0.0-1.0); EOS # 0.2 10^3/uL (0.0-0.50); EOS % 3.6 % (0.0-3.0); HEMATOCRIT 43.4 % (36.0-47.0); HEMOGLOBIN 14.6 g/dl (12.0-15.5); IMMATURE GRANULOCYTE % 0.3 % (0-3.0); LYMPH # 2.5 10^3/uL (1.5-4.5); LYMPH % 37.6 % (24.0-44.0); MEAN CORPUSCULAR HEMOGLOBIN 30.8 pg (27.0-33.0); MEAN CORPUSCULAR HGB CONC 33.6 g/dl (32.0-36.5); MEAN CORPUSCULAR VOLUME 91.6 fl (80.0-96.0); MONO # 0.6 10^3/uL (0.0-0.8); MONO % 8.4 % (0.0-5.0); NEUTROPHILS # 3.3 10^3/uL (1.8-7.7); NEUTROPHILS % 49.5 % (36.0-66.0); PLATELET COUNT, AUTOMATED 258 10^3/uL (150-450); RED BLOOD COUNT 4.74 10^6/uL (4.00-5.40); RED CELL DISTRIBUTION WIDTH 12.7 % (11.5-14.5); WHITE BLOOD COUNT 6.7 10^3/uL (4.0-10.0)
[2017-06-20 15:36] LABS: ANION GAP 5 MEQ/L (8-16); BLOOD UREA NITROGEN 7 MG/DL (7-18); CALCIUM LEVEL 8.8 MG/DL (8.5-10.1); CARBON DIOXIDE LEVEL 28 MEQ/L (21-32); CHLORIDE LEVEL 107 MEQ/L (98-107); CREATININE FOR GFR 1.07 MG/DL (0.55-1.30); GLOMERULAR FILTRATION RATE > 60.0 (>60); GLUCOSE, FASTING 85 MG/DL (70-100); POTASSIUM SERUM 3.5 MEQ/L (3.5-5.1); SODIUM LEVEL 140 MEQ/L (136-145)
== END 2017-06-20 21:26 | disposition home or self-care (01) ==
LOC: M ED 14:03
DX: R20.2 Paresthesia of skin (principal); D64.9 Anemia, unspecified; E78.5 Hyperlipidemia, unspecified; G43.909 Migraine, unspecified, not intractable, without status migrainosus; J45.909 Unspecified asthma, uncomplicated; J44.9 Chronic obstructive pulmonary disease, unspecified; K21.9 Gastro-esophageal reflux disease without esophagitis; F41.9 Anxiety disorder, unspecified; F32.9 Major depressive disorder, single episode, unspecified; F20.9 Schizophrenia, unspecified; Z86.73 Personal history of transient ischemic attack (TIA), and cerebral infarction without residual deficits; F17.200 Nicotine dependence, unspecified, uncomplicated; F12.10 Cannabis abuse, uncomplicated; I67.1 Cerebral aneurysm, nonruptured; Z79.82 Long term (current) use of aspirin; Z79.899 Other long term (current) drug therapy; Z88.2 Allergy status to sulfonamides; Z88.1 Allergy status to other antibiotic agents; Z88.8 Allergy status to other drugs, medicaments and biological substances
CPT/HCPCS: 70551

== ENCOUNTER → 2017-09-12 | Outpatient (CLI) | payer MEDICARE, MEDICAID ==
[2017-09-13 09:37] LABS: HEPATITIS B SURFACE ANTIGEN NEGATIVE (NEGATIVE)
[2017-09-13 10:01] LABS: HEPATITIS B CORE ANTIBODY IGM NEGATIVE (NEGATIVE)
[2017-09-13 10:01] LABS: HEPATITIS C VIRUS ABY INDEX < 0.0 INDEX (<0.8)
[2017-09-13 10:03] LABS: HEPATITIS A ANTIBODY IGM NEGATIVE (NEGATIVE)
[2017-09-13 10:04] LABS: HIV 1&2 SCREEN CENTAUR NEGATIVE (NEGATIVE)
== END ==
LOC: M SMT 13:24
DX: Z11.3 Encounter for screening for infections with a predominantly sexual mode of transmission (principal); Z12.72 Encounter for screening for malignant neoplasm of vagina; Z11.51 Encounter for screening for human papillomavirus (HPV)
CPT/HCPCS: 87340

== ENCOUNTER → 2017-09-12 | Outpatient (REF) | payer MEDICARE, MEDICAID ==
[2017-09-14 14:40] LABS: HPV HYBRID CAPTURE II Negative (Negative)
== END ==
LOC: M LAB REF 17:48
DX: Z12.72 Encounter for screening for malignant neoplasm of vagina (principal)
CPT/HCPCS: G0123

== ENCOUNTER → 2017-09-12 | Outpatient (REF) | payer MEDICARE, MEDICAID ==
[2017-09-12 22:45] LABS: CHLAMYDIA DNA AMPLIFICATION NEGATIVE (NEGATIVE); GC DNA AMPLIFICATION NEGATIVE (NEGATIVE)
== END ==
LOC: M LAB REF 17:11
DX: Z11.3 Encounter for screening for infections with a predominantly sexual mode of transmission (principal)
CPT/HCPCS: 87591

== ENCOUNTER → 2017-10-11 | Outpatient (CLI) | payer MEDICARE, MEDICAID | LOC: M RAD 11:46 | DX: Z12.31 Encounter for screening mammogram for malignant neoplasm of breast (principal) | CPT/HCPCS: 77067 ==

== ENCOUNTER → 2017-10-19 | Outpatient (CLI) | payer MEDICARE, MEDICAID ==
[2017-10-19 12:15] LABS: CHOLESTEROL LEVEL 244 MG/DL (<200); CHOLESTEROL RISK RATIO 6.594 (<5); HDL CHOLESTEROL 37 MG/DL (>40); NON-HDL-C 207 MG/DL; TRIGLYCERIDES LEVEL 315 MG/DL (<150)
== END ==
LOC: M LAB 10:34
DX: G45.9 Transient cerebral ischemic attack, unspecified (principal)
CPT/HCPCS: 80061

== ENCOUNTER 2017-11-01 12:30 | Outpatient (RCR) | payer MEDICARE, MEDICAID | END 2017-11-26 | LOC: M OT 12:30 | DX: Z47.89 Encounter for other orthopedic aftercare (principal); M79.644 Pain in right finger(s); M79.602 Pain in left arm | CPT/HCPCS: 97110 ==

== ENCOUNTER 2017-11-19 12:12 | Emergency (ER) | payer MEDICARE, MEDICAID ==
[2017-11-19 13:10] LABS: BASO # 0.1 10^3/uL (0.0-0.2); BASO % 0.9 % (0.0-1.0); EOS # 0.2 10^3/uL (0.0-0.50); EOS % 4.1 % (0.0-3.0); HEMATOCRIT 40.8 % (36.0-47.0); HEMOGLOBIN 13.5 g/dl (12.0-15.5); IMMATURE GRANULOCYTE % 0.5 % (0-3.0); LYMPH # 1.8 10^3/uL (1.5-4.5); LYMPH % 32.8 % (24.0-44.0); MEAN CORPUSCULAR HEMOGLOBIN 30.6 pg (27.0-33.0); MEAN CORPUSCULAR HGB CONC 33.1 g/dl (32.0-36.5); MEAN CORPUSCULAR VOLUME 92.5 fl (80.0-96.0); MONO # 0.3 10^3/uL (0.0-0.8); MONO % 5.9 % (0.0-5.0); NEUTROPHILS # 3.1 10^3/uL (1.8-7.7); NEUTROPHILS % 55.8 % (36.0-66.0); PLATELET COUNT, AUTOMATED 257 10^3/uL (150-450); RED BLOOD COUNT 4.41 10^6/uL (4.00-5.40); RED CELL DISTRIBUTION WIDTH 13.2 % (11.5-14.5); WHITE BLOOD COUNT 5.6 10^3/uL (4.0-10.0)
[2017-11-19] MEDS: ACETAMINOPHEN 325 MG TAB PO (13:32)
[2017-11-19 13:43] LABS: ANION GAP 6 MEQ/L (8-16); BLOOD UREA NITROGEN 10 MG/DL (7-18); CALCIUM LEVEL 8.5 MG/DL (8.5-10.1); CARBON DIOXIDE LEVEL 26 MEQ/L (21-32); CHLORIDE LEVEL 111 MEQ/L (98-107); CREATININE FOR GFR 0.85 MG/DL (0.55-1.30); GLOMERULAR FILTRATION RATE > 60.0 (>60); GLUCOSE, FASTING 89 MG/DL (70-100); POTASSIUM SERUM 4.2 MEQ/L (3.5-5.1); SODIUM LEVEL 143 MEQ/L (136-145)
[2017-11-19] MEDS: METOCLOPRAMIDE INJ 10MG/2ML VIAL (J2765) IV (15:15)
[2017-11-19] MEDS: diphenhydrAMINE INJ 50MG/ML VIAL (J1200) IV (15:47)
[2017-11-19] MEDS: NS 1,000 ML IV (15:47)
[2017-11-19 16:47] LABS: CK-MB VALUE MASS < 1.0 NG/ML (<3.6); CPK CREATINE PHOSPHOKINASE 93 U/L (26-192); MB/CK RELATIVE INDEX 1.08 (< OR =4); TROPONIN I < 0.02 NG/ML (< 0.10)
[2017-11-19] MEDS: KETOROLAC 30 MG/ML VIAL (J1885) IV (16:49)
[2017-11-19] MEDS: PROCHLORPERAZINE 10 MG/2 ML VIAL (J0780) IM (17:15)
[2017-11-19 17:53] LABS: CK-MB VALUE MASS < 1.0 NG/ML (<3.6); CPK CREATINE PHOSPHOKINASE 83 U/L (26-192); TROPONIN I < 0.02 NG/ML (< 0.10)
[2017-11-22 00:07] LABS: LAMOTRIGINE (LAMICTAL) 4.4 ug/mL (2.0-20.0)
== END 2017-11-19 18:01 | disposition home or self-care (01) ==
LOC: M ED 12:12
DX: G43.909 Migraine, unspecified, not intractable, without status migrainosus (principal); J44.9 Chronic obstructive pulmonary disease, unspecified; J45.909 Unspecified asthma, uncomplicated; E78.9 Disorder of lipoprotein metabolism, unspecified; Z86.73 Personal history of transient ischemic attack (TIA), and cerebral infarction without residual deficits; F43.10 Post-traumatic stress disorder, unspecified; F25.9 Schizoaffective disorder, unspecified; G89.29 Other chronic pain; I67.1 Cerebral aneurysm, nonruptured; F17.200 Nicotine dependence, unspecified, uncomplicated; Z88.8 Allergy status to other drugs, medicaments and biological substances; Z88.1 Allergy status to other antibiotic agents; Z88.2 Allergy status to sulfonamides; Z79.899 Other long term (current) drug therapy; Z79.82 Long term (current) use of aspirin
CPT/HCPCS: J1200

== ENCOUNTER 2017-11-27 10:24 | Outpatient (RCR) | payer MEDICARE, MEDICAID | END 2017-12-27 | LOC: M OT 11-29 09:41 | DX: M79.644 Pain in right finger(s) (principal); M79.602 Pain in left arm | CPT/HCPCS: 97110 ==

== ENCOUNTER → 2017-12-04 | Outpatient (CLI) | payer MEDICARE, MEDICAID | LOC: M LAB 11:02 | DX: E55.9 Vitamin D deficiency, unspecified (principal); Z79.899 Other long term (current) drug therapy | CPT/HCPCS: 82306 ==

== ENCOUNTER → 2017-12-05 | Outpatient (REF) | payer MEDICARE, MEDICAID ==
[2017-12-05 22:42] LABS: APPEARANCE, URINE HAZY (CLEAR); BACTERIA, URINE AUTO 1+ (NEGATIVE); BILIRUBIN, URINE AUTO NEGATIVE (NEGATIVE); BLOOD, URINE BLOOD NEGATIVE (NEGATIVE); COLOR, URINE YELLOW (YELLOW); GLUCOSE, URINE (UA) AUTO NEGATIVE (NEGATIVE); KETONE, URINE AUTO NEGATIVE (NEGATIVE); LEUKOCYTE ESTERASE, URINE AUTO NEGATIVE (NEGATIVE); MUCUS, URINE SMALL (NEGATIVE); NITRITE, URINE AUTO NEGATIVE (NEGATIVE); PROTEIN, URINE AUTO NEGATIVE (NEGATIVE); RBC, URINE AUTO 1 /HPF (0-3); SPECIFIC GRAVITY URINE AUTO 1.006 (1.002-1.035); SQUAMOUS EPITHELIAL CELL UR AU 2 /HPF (0-6); UROBILINOGEN, URINE AUTO 0.2 mg/dL (0.0-2.0); WBC, URINE AUTO 1 /HPF (0-3)
== END ==
LOC: M LAB REF 21:32
DX: N39.0 Urinary tract infection, site not specified (principal)
CPT/HCPCS: 81001

== ENCOUNTER 2017-12-11 13:22 | Emergency (ER) | payer MEDICARE, MEDICAID ==
[2017-12-11] MEDS: KETOROLAC 30 MG/ML VIAL (J1885) IV (16:23)
[2017-12-11] MEDS: diphenhydrAMINE INJ 50MG/ML VIAL (J1200) IV (16:23)
[2017-12-11] MEDS: NS 1,000 ML IV (16:23)
[2017-12-11] MEDS: MORPHINE 2 MG/ML 1ML SYRINGE (J2270) IV (17:06)
== END 2017-12-11 17:58 | disposition home or self-care (01) ==
LOC: M ED 13:22
DX: G43.909 Migraine, unspecified, not intractable, without status migrainosus (principal); J44.9 Chronic obstructive pulmonary disease, unspecified; F43.20 Adjustment disorder, unspecified; F25.9 Schizoaffective disorder, unspecified; F41.9 Anxiety disorder, unspecified; F31.9 Bipolar disorder, unspecified; K21.9 Gastro-esophageal reflux disease without esophagitis; F17.210 Nicotine dependence, cigarettes, uncomplicated
CPT/HCPCS: J1200

== ENCOUNTER → 2017-12-25 | Outpatient (REF) | payer MEDICARE, MEDICAID ==
[2017-12-25 13:28] LABS: APPEARANCE, URINE HAZY (CLEAR); BACTERIA, URINE AUTO NEGATIVE (NEGATIVE); BILIRUBIN, URINE AUTO NEGATIVE (NEGATIVE); BLOOD, URINE BLOOD 2+ (NEGATIVE); COLOR, URINE STRAW (YELLOW); GLUCOSE, URINE (UA) AUTO NEGATIVE (NEGATIVE); KETONE, URINE AUTO NEGATIVE (NEGATIVE); LEUKOCYTE ESTERASE, URINE AUTO 1+ (NEGATIVE); MUCUS, URINE SMALL (NEGATIVE); NITRITE, URINE AUTO NEGATIVE (NEGATIVE); PROTEIN, URINE AUTO NEGATIVE (NEGATIVE); RBC, URINE AUTO 0 /HPF (0-3); SPECIFIC GRAVITY URINE AUTO 1.002 (1.002-1.035); SQUAMOUS EPITHELIAL CELL UR AU 1 /HPF (0-6); UROBILINOGEN, URINE AUTO 0.2 mg/dL (0.0-2.0); WBC, URINE AUTO 7 /HPF (0-3)
== END ==
LOC: M LAB REF 12:59
DX: N39.0 Urinary tract infection, site not specified (principal)
CPT/HCPCS: 81001

== ENCOUNTER 2017-12-30 10:30 | Emergency (ER) | payer MEDICARE, MEDICAID | END 2017-12-30 11:14 | disposition home or self-care (01) | LOC: M ED 10:30 | DX: M79.662 Pain in left lower leg (principal); Z79.899 Other long term (current) drug therapy; Z79.82 Long term (current) use of aspirin; Z88.1 Allergy status to other antibiotic agents; Z88.2 Allergy status to sulfonamides; Z88.8 Allergy status to other drugs, medicaments and biological substances; F17.210 Nicotine dependence, cigarettes, uncomplicated | CPT/HCPCS: 73590 ==

== ENCOUNTER 2018-01-23 15:06 | Inpatient (IN) | payer MEDICARE, MEDICAID ==
[2018-01-23] MEDS: ALBUTEROL SULFATE 2.5 MG/0.5 ML INH NEB SOLN INH (16:06)
[2018-01-23] MEDS: methylPREDNISolone INJ 125 MG/2 ML VIAL (J2930) IV (16:06)
[2018-01-23] MEDS: IPRATROPIUM 0.5MG/ALBUTEROL 2.5MG INH SOL UD 3ML (DUONEB)(J7620) NEB (16:06)
[2018-01-23 16:29] LABS: BASO # 0.1 10^3/uL (0.0-0.2); EOS # 0.2 10^3/uL (0.0-0.50); EOS % 2.6 % (0.0-3.0); HEMATOCRIT 43.1 % (36.0-47.0); IMMATURE GRANULOCYTE % 0.1 % (0-3.0); LYMPH # 3.4 10^3/uL (1.5-4.5); LYMPH % 46.3 % (24.0-44.0); MEAN CORPUSCULAR HEMOGLOBIN 30.7 pg (27.0-33.0); MEAN CORPUSCULAR HGB CONC 34.8 g/dl (32.0-36.5); MEAN CORPUSCULAR VOLUME 88.3 fl (80.0-96.0); MONO # 0.5 10^3/uL (0.0-0.8); MONO % 7.1 % (0.0-5.0); NEUTROPHILS # 3.2 10^3/uL (1.8-7.7); NEUTROPHILS % 42.9 % (36.0-66.0); PLATELET COUNT, AUTOMATED 259 10^3/uL (150-450); RED BLOOD COUNT 4.88 10^6/uL (4.00-5.40); RED CELL DISTRIBUTION WIDTH 12.8 % (11.5-14.5); WHITE BLOOD COUNT 7.4 10^3/uL (4.0-10.0)
[2018-01-23 16:39] LABS: PROTHROMBIN TIME 13.3 SECONDS (12.1-14.4)
[2018-01-23 16:40] LABS: PARTIAL THROMBOPLASTIN TIME 31.2 SECONDS (25.4-37.6)
[2018-01-23 16:55] LABS: ANION GAP 8 MEQ/L (8-16); BLOOD UREA NITROGEN 13 MG/DL (7-18); CALCIUM LEVEL 8.8 MG/DL (8.5-10.1); CARBON DIOXIDE LEVEL 25 MEQ/L (21-32); CHLORIDE LEVEL 104 MEQ/L (98-107); CPK CREATINE PHOSPHOKINASE 134 U/L (26-192); CREATININE FOR GFR 1.16 MG/DL (0.55-1.30); GLOMERULAR FILTRATION RATE 55.1 (>58); GLUCOSE, FASTING 90 MG/DL (70-100); MAGNESIUM LEVEL 2.3 MG/DL (1.8-2.4); MB/CK RELATIVE INDEX 0.97 (< OR =4); POTASSIUM SERUM 3.6 MEQ/L (3.5-5.1); SODIUM LEVEL 137 MEQ/L (136-145); TROPONIN I < 0.02 NG/ML (< 0.10)
[2018-01-23 17:12] LABS: LACTIC ACID SEPSIS PROTOCOL 0.8 MMOL/L (0.4-2.0)
[2018-01-23] MEDS: ONDANSETRON 4MG/2ML VIAL (J2405) IV (18:00)
[2018-01-23] MEDS: NS 1,000 ML IV (18:00)
[2018-01-23 18:10] LABS: ALBUMIN 3.8 GM/DL (3.2-5.2); ALBUMIN/GLOBULIN RATIO 1.09 (1.00-1.93); ALKALINE PHOSPHATASE 121 U/L (45-117); ALT/SGPT 26 U/L (12-78); AST/SGOT 16 U/L (7-37); BILIRUBIN,DIRECT 0.1 MG/DL (0.0-0.2); BILIRUBIN,TOTAL 0.5 MG/DL (0.2-1.0); TOTAL PROTEIN 7.3 GM/DL (6.4-8.2)
[2018-01-23] MEDS ORDERED: IPRATROPIUM 0.5MG/ALBUTEROL 2.5MG INH SOL UD 3ML (DUONEB)(J7620) NEB (19:30)
[2018-01-23] MEDS ORDERED: PENTAZOCINE PO (19:30)
[2018-01-23] MEDS ORDERED: CEPACOL LOZENGE PO (19:30)
[2018-01-23] MEDS ORDERED: NICOTINE 21MG/24HR 1 EA TRANSDERMAL TD (19:30)
[2018-01-23] MEDS ORDERED: METOCLOPRAMIDE INJ 10MG/2ML VIAL (J2765) IV (19:30)
[2018-01-23] MEDS ORDERED: NALOXONE PO (19:30)
[2018-01-23] MEDS ORDERED: ISOVUE-370 76% 100ML VIAL (Q9967) As Ordered (19:34)
[2018-01-23] MEDS ORDERED: PILL CRUSHER/CUTTER 1 EACH XX (19:45)
[2018-01-23] MEDS: SENOKOT S TAB PO (21:00)
[2018-01-23] MEDS: guaiFENesin ER 600 MG TAB PO (21:00)
[2018-01-23 22:58] LABS: CK-MB VALUE MASS < 1.0 NG/ML (<3.6); CPK CREATINE PHOSPHOKINASE 107 U/L (26-192); MB/CK RELATIVE INDEX 0.93 (< OR =4); TROPONIN I < 0.02 NG/ML (< 0.10)
[2018-01-24 00:23] LABS: KETONE, URINE AUTO RFX NEGATIVE (NEGATIVE); LEUKOCYTE ESTERASE UR AUTO RFX NEGATIVE (NEGATIVE); NITRITE, URINE AUTO RFX NEGATIVE (NEGATIVE); RBC, URINE AUTO RFX 1 /HPF (0-3); SPECIFIC GRAVITY UR AUTO RFX 1.027 (1.002-1.035); SQUAM EPITHELIAL CELL UR AURFX 1 /HPF (0-6); WBC, URINE AUTO RFX 0 /HPF (0-3)
[2018-01-24 00:40] LABS: AMPHETAMINES LEVEL URINE NEGATIVE (NEGATIVE); BARBITURATES URINE NEGATIVE (NEGATIVE); BENZODIAZEPINES URINE NEGATIVE (NEGATIVE); CANNABINOIDS URINE POSITIVE (NEGATIVE); COCAINE METABOLITE URINE NEGATIVE (NEGATIVE); METHADONE URINE NEGATIVE (NEGATIVE); OPIATES URINE NEGATIVE (NEGATIVE); PHENCYCLIDINE URINE NEGATIVE (NEGATIVE)
[2018-01-24] MEDS: guaiFENesin ER 600 MG TAB PO ×3 (00:45→21:33)
[2018-01-24] MEDS: clonazePAM 0.5 MG TAB PO ×2 (00:45→21:33)
[2018-01-24] MEDS: DULoxetine 30 MG CAP (CYMBALTA) PO ×3 (00:45→21:32)
[2018-01-24] MEDS: HEPARIN SOD (PORCINE) 5000 UNITS/ML VIAL SC ×3 (00:45→21:33)
[2018-01-24] MEDS: LR 1,000 ML IV ×2 (00:46→13:30)
[2018-01-24] MEDS: IPRATROPIUM 0.5MG/ALBUTEROL 2.5MG INH SOL UD 3ML (DUONEB)(J7620) NEB ×5 (04:08→20:00)
[2018-01-24] MEDS: CYCLOBENZAPRINE 10 MG TAB PO (05:31)
[2018-01-24 05:42] LABS: HEMOGLOBIN 14.3 g/dl (12.0-15.5); MEAN CORPUSCULAR HEMOGLOBIN 30.7 pg (27.0-33.0); MEAN CORPUSCULAR VOLUME 90.1 fl (80.0-96.0); PLATELET COUNT, AUTOMATED 271 10^3/uL (150-450); RED BLOOD COUNT 4.66 10^6/uL (4.00-5.40); RED CELL DISTRIBUTION WIDTH 12.9 % (11.5-14.5); WHITE BLOOD COUNT 6.5 10^3/uL (4.0-10.0)
[2018-01-24 06:15] LABS: ANION GAP 8 MEQ/L (8-16); BLOOD UREA NITROGEN 11 MG/DL (7-18); CALCIUM LEVEL 8.2 MG/DL (8.5-10.1); CARBON DIOXIDE LEVEL 22 MEQ/L (21-32); CHLORIDE LEVEL 111 MEQ/L (98-107); CK-MB VALUE MASS < 1.0 NG/ML (<3.6); CPK CREATINE PHOSPHOKINASE 101 U/L (26-192); CREATININE FOR GFR 1.05 MG/DL (0.55-1.30); GLOMERULAR FILTRATION RATE > 60.0 (>58); GLUCOSE, FASTING 126 MG/DL (70-100); MAGNESIUM LEVEL 2.4 MG/DL (1.8-2.4); MB/CK RELATIVE INDEX 0.99 (< OR =4); POTASSIUM SERUM 4.2 MEQ/L (3.5-5.1); SODIUM LEVEL 141 MEQ/L (136-145); TROPONIN I < 0.02 NG/ML (< 0.10)
[2018-01-24] MEDS ORDERED: NALOXONE PO (09:00)
[2018-01-24] MEDS ORDERED: PENTAZOCINE PO (09:00)
[2018-01-24] MEDS ORDERED: MELOXICAM (MOBIC) 7.5 MG TAB PO (09:00)
[2018-01-24] MEDS: TOPIRAMATE (TopAMAX) 100 MG TAB PO (09:02)
[2018-01-24] MEDS: PRAVASTATIN 20 MG TAB PO (09:02)
[2018-01-24] MEDS: QUEtiapine 300 MG XR TABLET(SEROQUEL XR) PO (09:02)
[2018-01-24] MEDS: OMEPRAZOLE 20 MG CAP PO (09:02)
[2018-01-24] MEDS: clonazePAM 1 MG TAB PO ×2 (09:02→16:34)
[2018-01-24] MEDS: ASPIRIN 81 MG ENTERIC TAB PO (09:02)
[2018-01-24] MEDS: SENOKOT S TAB PO ×2 (09:03→21:33)
[2018-01-24] MEDS: lamoTRIgine 100MG TAB PO (09:03)
[2018-01-24] MEDS: FERROUS SULFATE 325MG TAB PO (09:03)
[2018-01-25] MEDS: IPRATROPIUM 0.5MG/ALBUTEROL 2.5MG INH SOL UD 3ML (DUONEB)(J7620) NEB ×4 (01:36→19:37)
[2018-01-25 06:05] LABS: HEMATOCRIT 40.1 % (36.0-47.0); HEMOGLOBIN 13.5 g/dl (12.0-15.5); MEAN CORPUSCULAR HEMOGLOBIN 30.8 pg (27.0-33.0); MEAN CORPUSCULAR HGB CONC 33.7 g/dl (32.0-36.5); MEAN CORPUSCULAR VOLUME 91.6 fl (80.0-96.0); PLATELET COUNT, AUTOMATED 235 10^3/uL (150-450); RED BLOOD COUNT 4.38 10^6/uL (4.00-5.40); RED CELL DISTRIBUTION WIDTH 13.1 % (11.5-14.5); WHITE BLOOD COUNT 5.2 10^3/uL (4.0-10.0)
[2018-01-25 06:34] LABS: ANION GAP 8 MEQ/L (8-16); BLOOD UREA NITROGEN 11 MG/DL (7-18); CALCIUM LEVEL 8.5 MG/DL (8.5-10.1); CARBON DIOXIDE LEVEL 21 MEQ/L (21-32); CHLORIDE LEVEL 111 MEQ/L (98-107); CREATININE FOR GFR 1.06 MG/DL (0.55-1.30); GLOMERULAR FILTRATION RATE > 60.0 (>58); GLUCOSE, FASTING 103 MG/DL (70-100); MAGNESIUM LEVEL 2.2 MG/DL (1.8-2.4); POTASSIUM SERUM 3.7 MEQ/L (3.5-5.1); SODIUM LEVEL 140 MEQ/L (136-145)
[2018-01-25] MEDS: SENOKOT S TAB PO ×3 (09:00→21:34)
[2018-01-25] MEDS: DULoxetine 30 MG CAP (CYMBALTA) PO ×2 (09:15→21:34)
[2018-01-25] MEDS: OMEPRAZOLE 20 MG CAP PO (09:15)
[2018-01-25] MEDS: lamoTRIgine 100MG TAB PO (09:15)
[2018-01-25] MEDS: TOPIRAMATE (TopAMAX) 100 MG TAB PO (09:15)
[2018-01-25] MEDS: QUEtiapine 300 MG XR TABLET(SEROQUEL XR) PO (09:15)
[2018-01-25] MEDS: ASPIRIN 81 MG ENTERIC TAB PO (09:15)
[2018-01-25] MEDS: clonazePAM 1 MG TAB PO ×2 (09:16→17:29)
[2018-01-25] MEDS: guaiFENesin ER 600 MG TAB PO ×2 (09:16→21:34)
[2018-01-25] MEDS: PRAVASTATIN 20 MG TAB PO (09:16)
[2018-01-25] MEDS: FERROUS SULFATE 325MG TAB PO (09:16)
[2018-01-25] MEDS: HEPARIN SOD (PORCINE) 5000 UNITS/ML VIAL SC ×2 (09:17→21:34)
[2018-01-25] MEDS: clonazePAM 0.5 MG TAB PO (21:34)
[2018-01-26] MEDS: IPRATROPIUM 0.5MG/ALBUTEROL 2.5MG INH SOL UD 3ML (DUONEB)(J7620) NEB ×3 (01:18→14:00)
[2018-01-26 05:55] LABS: HEMATOCRIT 39.5 % (36.0-47.0); HEMOGLOBIN 13.3 g/dl (12.0-15.5); MEAN CORPUSCULAR HEMOGLOBIN 30.6 pg (27.0-33.0); MEAN CORPUSCULAR HGB CONC 33.7 g/dl (32.0-36.5); MEAN CORPUSCULAR VOLUME 90.8 fl (80.0-96.0); PLATELET COUNT, AUTOMATED 242 10^3/uL (150-450); RED BLOOD COUNT 4.35 10^6/uL (4.00-5.40); WHITE BLOOD COUNT 5.6 10^3/uL (4.0-10.0)
[2018-01-26 06:19] LABS: ANION GAP 8 MEQ/L (8-16); BLOOD UREA NITROGEN 9 MG/DL (7-18); CARBON DIOXIDE LEVEL 23 MEQ/L (21-32); CHLORIDE LEVEL 110 MEQ/L (98-107); CREATININE FOR GFR 1.04 MG/DL (0.55-1.30); GLOMERULAR FILTRATION RATE > 60.0 (>58); GLUCOSE, FASTING 94 MG/DL (70-100); MAGNESIUM LEVEL 2.2 MG/DL (1.8-2.4); POTASSIUM SERUM 4.1 MEQ/L (3.5-5.1); SODIUM LEVEL 141 MEQ/L (136-145)
[2018-01-26] MEDS: HEPARIN SOD (PORCINE) 5000 UNITS/ML VIAL SC (09:00)
[2018-01-26] MEDS: SENOKOT S TAB PO (09:00)
[2018-01-26] MEDS: lamoTRIgine 100MG TAB PO (09:20)
[2018-01-26] MEDS: OMEPRAZOLE 20 MG CAP PO (09:20)
[2018-01-26] MEDS: guaiFENesin ER 600 MG TAB PO (09:20)
[2018-01-26] MEDS: PRAVASTATIN 20 MG TAB PO (09:20)
[2018-01-26] MEDS: ASPIRIN 81 MG ENTERIC TAB PO (09:20)
[2018-01-26] MEDS: clonazePAM 1 MG TAB PO (09:20)
[2018-01-26] MEDS: FERROUS SULFATE 325MG TAB PO (09:20)
[2018-01-26] MEDS: TOPIRAMATE (TopAMAX) 100 MG TAB PO (09:21)
[2018-01-26] MEDS: DULoxetine 30 MG CAP (CYMBALTA) PO (09:21)
[2018-01-26] MEDS: QUEtiapine 300 MG XR TABLET(SEROQUEL XR) PO (13:40)
== END 2018-01-26 14:38 | disposition home or self-care (01) | DRG 312 ==
LOC: M ED 15:06 → M ED INP 19:27 → M PCU 23:24
DX: R55 Syncope and collapse (principal); B34.9 Viral infection, unspecified; F25.9 Schizoaffective disorder, unspecified; I67.1 Cerebral aneurysm, nonruptured; E78.5 Hyperlipidemia, unspecified; F43.10 Post-traumatic stress disorder, unspecified; F32.9 Major depressive disorder, single episode, unspecified; F17.210 Nicotine dependence, cigarettes, uncomplicated; G43.109 Migraine with aura, not intractable, without status migrainosus; K21.9 Gastro-esophageal reflux disease without esophagitis; J45.909 Unspecified asthma, uncomplicated; E55.9 Vitamin D deficiency, unspecified; D50.9 Iron deficiency anemia, unspecified; M79.18 Myalgia, other site; Z88.1 Allergy status to other antibiotic agents; Z88.8 Allergy status to other drugs, medicaments and biological substances; Z88.2 Allergy status to sulfonamides; Z88.6 Allergy status to analgesic agent; Z90.710 Acquired absence of both cervix and uterus; Z79.51 Long term (current) use of inhaled steroids; Z79.82 Long term (current) use of aspirin; Z79.899 Other long term (current) drug therapy

== ENCOUNTER → 2018-02-12 | Outpatient (CLI) | payer MEDICARE, MEDICAID ==
[~2018-02-12] MED LIST changes: +CLON1TAB8 PO; -DRIS50002 PO; +DRIS50003 PO; -IBUP200C10 PO; +IBUP200C25 PO; +IBUP80TA PO; +IPRA0.00 IN; +IPRA0.00 INH; -IPRASOL4 IN; -IPRASOL4 INH; +MELO15TA28 PO; +ONDA4TAB5 PO; +PRAV40TA2 PO; +QUET30XR PO; +ROBA500T PO; +TOPA100T12 PO; +VENTAER INH; +VERA40TA; +ZOFR4TAB16 PO
--- NOTE | 2018-02-12 13:08 | REP ---
Right quadrant sonography: History: Liver lesion in the left lobe. Gallbladder wall thickening. Comparison CT study January 23, 2018. Findings: Scanning through the right upper quadrant of the abdomen demonstrates a large shadowing gallstone in the dependent portion the gallbladder. Gallbladder wall is not visibly thickened. Common bile duct is normal measuring 0.5 cm in greatest diameter. There is a 1.2 cm cyst in the left lobe of the liver. There is a slightly hyperechoic area in the left lobe of the liver 2.7 cm in greatest diameter consistent with focal fatty infiltration. The pancreas is obscured by abdominal gas. There are multiple cysts in the right kidney the largest of which measures 6.2 x 6.0 x 4.8 centimeters. This correlates with the CT findings. The right kidney measures 12.4 x 4.0 x 4.8 cm. Impression: Cholelithiasis. Small cyst left hepatic lobe. Area of focal fatty infiltration in the liver is also seen. Multiple right renal cysts. Electronically Signed by Owen Silva MD 02/12/2018 08:02 P
== END ==
LOC: M RAD 09:12
PROVIDERS: ATTEND Nurse Practitioner Adult Health
DX: K80.20 Calculus of gallbladder without cholecystitis without obstruction (principal); K76.89 Other specified diseases of liver; K82.8 Other specified diseases of gallbladder; N28.1 Cyst of kidney, acquired

== ENCOUNTER 2018-04-04 23:59 | Emergency (ER) | payer MEDICARE, MEDICAID ==
[~2018-04-04] VITALS: Ht 162.6 cm; Wt 87.7 kg
[~2018-04-04 23:59] MED LIST changes: +IBUP-1114 PO; +PROAAER10 INH; -QUET30XR PO; +SERO300T20 PO
[2018-04-05] VITALS: BP 124/81
== END 2018-04-05 01:39 | disposition left against medical advice (07) ==
LOC: M ED 23:59
DX: Z53.21 Procedure and treatment not carried out due to patient leaving prior to being seen by health care provider (principal)

== ENCOUNTER → 2018-04-05 | Outpatient (REF) | payer MEDICARE, MEDICAID ==
[2018-04-05 11:56] LABS: INFLUENZA A AMPLIFICATION NEGATIVE (NEGATIVE); INFLUENZA B AMPLIFICATION NEGATIVE (NEGATIVE)
== END ==
LOC: M LAB REF 11:11
PROVIDERS: ATTEND Physician Assistant
DX: R68.89 Other general symptoms and signs (principal)

== ENCOUNTER → 2018-04-09 | Outpatient (REF) | payer MEDICARE, MEDICAID ==
[2018-04-09 19:12] LABS: HEMATOCRIT 43.7 % (36.0-47.0); HEMOGLOBIN 14.1 g/dl (12.0-15.5); MEAN CORPUSCULAR HGB CONC 32.3 g/dl (32.0-36.5); PLATELET COUNT, AUTOMATED 260 10^3/uL (150-450); RED BLOOD COUNT 4.55 10^6/uL (4.00-5.40); WHITE BLOOD COUNT 5.6 10^3/uL (4.0-10.0)
== END ==
LOC: M SFHCPLAZ 12:51
PROVIDERS: ATTEND Family Medicine
DX: D50.9 Iron deficiency anemia, unspecified (principal)
CPT/HCPCS: 36415; 85027; G0463

== ENCOUNTER 2018-04-13 05:34 | Day surgery (SDC) | payer MEDICARE, MEDICAID ==
[~2018-04-13] VITALS: Ht 162.6 cm; Wt 82.6 kg
[2018-04-13] MEDS ORDERED: LR 1,000 ML IV ONE (06:00)
[2018-04-13] MEDS ORDERED: BUPIVACAINE HCL 0.25% 30 ML VIAL As Ordered ONE (07:11)
[2018-04-13] MEDS ORDERED: LIDOCAINE 1% SDV INJ 30 ML VIAL As Ordered ONE (07:11)
[2018-04-13] MEDS ORDERED: LevoFLOXacin IV 500 MG in APPROPRIATE DILUENT 1 EA IV ONE (07:15)
[2018-04-13] MEDS ORDERED: ROCURONIUM BROMIDE 50 MG/5 ML VIAL As Ordered ONE (07:19)
[2018-04-13] MEDS ORDERED: LIDOCAINE 2% INJ 100 MG/5 ML SDV (FOR ANES.) As Ordered ONE (07:19)
[2018-04-13] MEDS ORDERED: fentaNYL 100 MCG/2 ML INJECTION (J3010) As Ordered ONE ×2 (07:19→08:26)
[2018-04-13] MEDS ORDERED: ONDANSETRON 4MG/2ML VIAL (J2405) As Ordered ONE (07:19)
[2018-04-13] MEDS ORDERED: MIDAZOLAM INJ 2 MG/2 ML VIAL (J2250) As Ordered ONE (07:19)
[2018-04-13] MEDS ORDERED: PROPOFOL 200 MG/20 ML VIAL As Ordered ONE (07:19)
[2018-04-13] MEDS ORDERED: METOCLOPRAMIDE INJ 10MG/2ML VIAL (J2765) As Ordered ONE (07:19)
[2018-04-13] MEDS ORDERED: KETOROLAC 60 MG/2 ML VIAL (J1885) As Ordered ONE (08:25)
[2018-04-13] MEDS ORDERED: KETAMINE HCL 200 MG/20 ML VIAL As Ordered ONE (08:26)
[2018-04-13] MEDS ORDERED: SUGAMMADEX SODIUM 500 MG/5 ML VIAL (BRIDION) As Ordered ONE (08:52)
--- NOTE | 2018-04-13 09:41 | ROOPDOC ---
[facility] Report Of Operation Report of Operation DATE OF PROCEDURE: 04/13/18 PREPROCEDURE DIAGNOSES: Cholelithiasis, biliary colic nausea and vomiting. POSTPROCEDURE DIAGNOSES: Cholelithiasis, chronic cholecystitis. PROCEDURE: Laparoscopic cholecystectomy. SURGEON: Samm Irby MD WASHER BLANKET: MD Dr. Victor Manuel Pires provided assistance with placement of laparoscopic ports, gallbladder retraction;, closure of incisions ANESTHESIA: General Anesthesia. ESTIMATED BLOOD LOSS: Approximately 20 mL. COMPLICATIONS: None. REMARKS: Mild hepatomegaly but no obvious nodularities. Distended and thick- walled gallbladder appears chronic with about 1 cm stone palpable at the neck of the gallbladder.. DESCRIPTION OF PROCEDURE: Patient was given a dose Unasyn 3 g IV preoperatively for prophylaxis. She was brought to the operating room, laid supine on the table, compression boots placed for DVT prophylaxis. General endotracheal anesthesia started. Her abdomen then prepped and draped in usual sterile fashion. Surgical timeout was performed prior to starting surgery. Entry into the abdomen done through an incision above the umbilicus. A Veress needle was inserted with a controlled fashion. CO2 insufflation started to pressure 15 mmHg. Using the same incision a 5 mm Visiport was placed under direct vision laparoscope. The area underneath the insertion site was inspected and no injury found. She was then placed in steep reverse Trendelenburg. Her right side was tilted up to further expose the gallbladder. Under direct vision a 11 mm epigastric port and Two 5 mm working ports placed along the right subco stal line. Operative findings: Her liver is noted to be smooth in contour no nodularities or lesions found,mild hepatomegaly, fatty replaced. Her gallbladder is thickened with fibrous peritoneal envelope especially at the posterior side as it attaches to the liver, mildly distended. No acute inflammation found. A 1 cm stone noted at the neck of the gallbladder. The fundus of the gallbladder was grasped and the gallbladder was elevated superiorly exposing the neck of the gallbladder. The peritoneum overlying the area was opened up and dissected free both anteriorly and posteriorly to help with retraction of the gallbladder. The hepatocystic triangle was approached and dissected using a [place] and instrument. The cystic duct was identified coming off from the next gallbladder this was circumferentially dissected. The cystic artery was identified in its usual position medially behind a small lymph node of [place]. This was similarly circumferentially dissected off surrounding adipose tissue. We continued posterior dissection proximally at the next gallbladder until a critical view of safety was achieved whereby only the previously diamond ntified duct and artery coursing through the neck the gallbladder. At this point the cystic artery was clipped 4 times and divided. After again checking her anatomy and verifying that the previously identified cystic duct, this was also clipped 4 times and divided. The rest of the gallbladder was then dissected free of the gallbladder bed using Bovie cautery. There was minimal ble eding at the lateral gallbladder attachments to the liver capsule this was easily controlled with Bovie cautery. The gallbladder was then placed in an Endo Catch bag and retrieved outside through the epigastric port site. After re- insufflation and inspected the clips and noted this to be in place. No further bleeding noted. No bile leakage noted. The abdomen was deflated all ports were removed. The epigastric fascial defect repaired with 0 Vicryl in a mattress fashion. Rest of the skin incisions closed with 4-0 Monocryl in subcuticular fashion. Steri-Strips and gauze dressings were placed, the wound. Patient was informed they awakened, extubated and brought to recovery room stable SAMM IRBY MD Apr 13, 2018 09:41
[2018-04-13] MEDS ORDERED: KETOROLAC 30 MG/ML VIAL (J1885) IV PRN (09:45)
[2018-04-13] MEDS ORDERED: ONDANSETRON 4MG/2ML VIAL (J2405) IV PRN (09:45)
[2018-04-13] MEDS ORDERED: HYDROMORPHONE HCL 0.5 MG/ 0.5 ML SYRINGE (J1170 PER 1) IV PRN (09:45)
[2018-04-13] MEDS ORDERED: fentaNYL 100 MCG/2 ML INJECTION (J3010) IV PRN (09:45)
[2018-04-13] MEDS ORDERED: LR 1,000 ML IV SCH (09:45)
[2018-04-13] MEDS ORDERED: NORCO, ANEXSIA 5/325MG TABLET (HYDROcodone/ACETAMINOPHEN) PO PRN ×2 (09:45)
[2018-04-13] MEDS: PERCOCET 5MG/325MG TAB PO PRN ×2 (10:15→10:45)
[2018-04-13] MEDS ORDERED: PERCOCET 5MG/325MG TAB As Ordered ONE (10:47)
[2018-04-13 11:28] VITALS: BP 131/72
== END 2018-04-13 11:40 | disposition home or self-care (01) ==
LOC: M SDC 05:34
PROVIDERS: ATTEND Surgery
DX: K80.18 Calculus of gallbladder with other cholecystitis without obstruction (principal); F43.10 Post-traumatic stress disorder, unspecified; F41.9 Anxiety disorder, unspecified; F32.9 Major depressive disorder, single episode, unspecified; Z92.21 Personal history of antineoplastic chemotherapy; F17.210 Nicotine dependence, cigarettes, uncomplicated; Z79.82 Long term (current) use of aspirin; Z79.899 Other long term (current) drug therapy; Z88.1 Allergy status to other antibiotic agents; Z88.8 Allergy status to other drugs, medicaments and biological substances; Z86.73 Personal history of transient ischemic attack (TIA), and cerebral infarction without residual deficits
CPT/HCPCS: 47562; 88304; J1885; J1956; J2250; J2405; J2765; J3010

== ENCOUNTER 2018-04-17 08:47 | Emergency (ER) | payer MEDICARE, MEDICAID ==
[~2018-04-17] VITALS: Ht 162.6 cm; Wt 84.5 kg
[2018-04-17] MEDS ORDERED: NS 1,000 ML IV ONE (09:30)
--- NOTE | 2018-04-17 10:10 | REP ---
Chest two views HISTORY: Cholecystectomy Comparison: 01/23/2018 The lungs are clear. The heart is normal in size. The pulmonary vasculature is normal in appearance. The bony structure is intact. IMPRESSION: No acute disease. Electronically Signed by Wes Kearney MD 04/17/2018 10:01 A
[2018-04-17 10:23] LABS: INFLUENZA A AMPLIFICATION NEGATIVE (NEGATIVE); INFLUENZA B AMPLIFICATION NEGATIVE (NEGATIVE)
--- NOTE | 2018-04-17 10:29 | REP ---
KUB, ONE VIEW: HISTORY: Cholecystectomy. COMPARISON: 03/22/2012. A small amount of air is present in the intestine. There are no air fluid levels or dilated loops of intestine. There is no pneumoperitoneum. A mild amount of stool is present in the colon. Surgical clips are present in the right upper quadrant. IMPRESSION: Nonspecific bowel gas pattern. Electronically Signed by Wes Kearney MD 04/17/2018 10:44 A
[2018-04-17 10:41] VITALS: BP 128/76
== END 2018-04-17 11:05 | disposition home or self-care (01) ==
LOC: M ED 08:47
DX: J02.8 Acute pharyngitis due to other specified organisms (principal); R05 Cough; R42 Dizziness and giddiness; E78.5 Hyperlipidemia, unspecified; R51 Headache; Z98.890 Other specified postprocedural states; Z87.820 Personal history of traumatic brain injury; F17.200 Nicotine dependence, unspecified, uncomplicated; Z88.1 Allergy status to other antibiotic agents; Z88.8 Allergy status to other drugs, medicaments and biological substances; Z79.899 Other long term (current) drug therapy; Z79.82 Long term (current) use of aspirin; Z79.51 Long term (current) use of inhaled steroids

== ENCOUNTER → 2018-05-11 | Outpatient (CLI) | payer MEDICARE, MEDICAID ==
[2018-05-11 13:31] LABS: BASO # 0.1 10^3/uL (0.0-0.2); EOS # 0.1 10^3/uL (0.0-0.50); EOS % 1.7 % (0.0-3.0); HEMATOCRIT 40.3 % (36.0-47.0); HEMOGLOBIN 13.1 g/dl (12.0-15.5); LYMPH # 1.9 10^3/uL (1.5-4.5); LYMPH % 36.1 % (24.0-44.0); MEAN CORPUSCULAR HEMOGLOBIN 30.5 pg (27.0-33.0); MEAN CORPUSCULAR HGB CONC 32.5 g/dl (32.0-36.5); MEAN CORPUSCULAR VOLUME 93.9 fl (80.0-96.0); MONO # 0.3 10^3/uL (0.0-0.8); MONO % 5.9 % (0.0-5.0); NEUTROPHILS # 2.9 10^3/uL (1.8-7.7); NEUTROPHILS % 54.7 % (36.0-66.0); PLATELET COUNT, AUTOMATED 254 10^3/uL (150-450); RED BLOOD COUNT 4.29 10^6/uL (4.00-5.40); WHITE BLOOD COUNT 5.2 10^3/uL (4.0-10.0)
[2018-05-11 14:02] LABS: HEMOGLOBIN A1c 5.9 %
[2018-05-11 14:28] LABS: ALBUMIN 3.9 GM/DL (3.2-5.2); BILIRUBIN,TOTAL 0.4 MG/DL (0.2-1.0); CALCIUM LEVEL 8.8 MG/DL (8.5-10.1); CHOLESTEROL RISK RATIO 6.914 (<5); CREATININE FOR GFR 1.1 MG/DL (0.55-1.30); GLOMERULAR FILTRATION RATE 58.6 (>58); POTASSIUM SERUM 3.7 MEQ/L (3.5-5.1); TOTAL 25(OH) VITAMIN D 54.8 NG/ML (30.0-100.0); TOTAL PROTEIN 7.2 GM/DL (6.4-8.2)
== END ==
LOC: M LAB 13:06
PROVIDERS: ATTEND Nurse Practitioner Psychiatric/Mental Health
DX: Z51.81 Encounter for therapeutic drug level monitoring (principal); F25.9 Schizoaffective disorder, unspecified; Z79.899 Other long term (current) drug therapy; Z13.6 Encounter for screening for cardiovascular disorders; Z13.1 Encounter for screening for diabetes mellitus; E55.9 Vitamin D deficiency, unspecified

== ENCOUNTER → 2018-05-25 | Outpatient (CLI) | payer MEDICARE, MEDICAID ==
--- NOTE | 2018-05-25 14:56 | REP ---
Clinical: Right wrist pain Technique: AP, lateral, bilateral oblique views. Findings: The carpal bones, surrounding osseous structures, soft tissues, and joint spaces are normal. There is no evidence for acute fracture or dislocation. No subcutaneous emphysema or radiodense foreign body. Impression: Normal wrist series. No acute fracture or dislocation Electronically Signed by Henrik Finnegan MD 05/25/2018 02:48 P
--- NOTE | 2018-05-25 14:57 | REP ---
Clinical: Right hand pain Technique: AP, lateral, bilateral oblique views right hand . Findings: The osseous structures and joint spaces are intact and normal. There is no evidence for acute fracture or dislocation. Surrounding soft tissues are unremarkable. No subcutaneous emphysema or radiodense foreign body. Impression: Normal right hand series . No acute fracture or dislocation. Electronically Signed by Henrik Finnegan MD 05/25/2018 02:48 P
== END ==
LOC: M RAD 14:33
PROVIDERS: ATTEND Nurse Practitioner Family
DX: S60.221A Contusion of right hand, initial encounter (principal); W20.8XXA Other cause of strike by thrown, projected or falling object, initial encounter; Y92.9 Unspecified place or not applicable

== ENCOUNTER 2018-07-10 21:45 | Emergency (ER) | payer MEDICARE, MEDICAID ==
[~2018-07-10] VITALS: Ht 162.6 cm; Wt 78.6 kg
[~2018-07-10 21:45] MED LIST changes: -/ADVA50050; -/ADVA50050 IN; -/LAMO10TA OR; +ADVA1AER2; +ADVA1AER2 IN; +ATOR40TA75 PO; +LAMI1TAB7 OR; +SERO300T PO; -SERO300T20 PO
[2018-07-10] MEDS ORDERED: CLEO300C2 PO (22:43)
[2018-07-10 22:55] VITALS: BP 117/59
== END 2018-07-10 22:58 | disposition home or self-care (01) ==
LOC: M ED 21:45
DX: L02.219 Cutaneous abscess of trunk, unspecified (principal); Z79.899 Other long term (current) drug therapy; Z79.82 Long term (current) use of aspirin; Z88.1 Allergy status to other antibiotic agents; Z88.8 Allergy status to other drugs, medicaments and biological substances; F17.210 Nicotine dependence, cigarettes, uncomplicated

== ENCOUNTER 2018-08-03 22:12 | Emergency (ER) | payer MEDICARE, MEDICAID ==
[~2018-08-03] VITALS: Ht 162.6 cm; Wt 78.6 kg
[~2018-08-03 22:12] MED LIST changes: +CLEO300C2 PO
[2018-08-03] MEDS ORDERED: QUET300T53 PO (22:29)
[2018-08-03 23:47] VITALS: BP 99/64
== END 2018-08-03 23:48 | disposition home or self-care (01) ==
LOC: M ED 22:12
DX: R58 Hemorrhage, not elsewhere classified (principal); Z98.890 Other specified postprocedural states; I10 Essential (primary) hypertension; J44.9 Chronic obstructive pulmonary disease, unspecified; J45.909 Unspecified asthma, uncomplicated; K21.9 Gastro-esophageal reflux disease without esophagitis; G89.29 Other chronic pain; Z79.899 Other long term (current) drug therapy; Z79.82 Long term (current) use of aspirin; Z88.1 Allergy status to other antibiotic agents; Z88.8 Allergy status to other drugs, medicaments and biological substances; F17.210 Nicotine dependence, cigarettes, uncomplicated

== ENCOUNTER 2018-08-16 22:00 | Emergency (ER) | payer MEDICARE, MEDICAID ==
[~2018-08-16] VITALS: Ht 162.6 cm; Wt 79.0 kg
[~2018-08-16 22:00] MED LIST changes: +QUET300T53 PO
[2018-08-16] MEDS ORDERED: KETOROLAC 30 MG/ML VIAL (J1885) IM ONE (22:45)
[2018-08-16] MEDS ORDERED: LIDOCAINE 5% (LIDODERM) PATCH TD ONE (22:45)
[2018-08-16 23:55] VITALS: BP 124/88
[2018-08-17] MEDS ORDERED: **NOTE PATIENT COMMENT** MISC XX SCH (09:00)
== END 2018-08-16 23:59 | disposition home or self-care (01) ==
LOC: M ED 22:00
DX: G89.29 Other chronic pain (principal); M79.669 Pain in unspecified lower leg; E78.5 Hyperlipidemia, unspecified; G43.909 Migraine, unspecified, not intractable, without status migrainosus; K21.9 Gastro-esophageal reflux disease without esophagitis; N39.0 Urinary tract infection, site not specified; Z87.820 Personal history of traumatic brain injury; Z72.0 Tobacco use; Z79.82 Long term (current) use of aspirin; Z79.899 Other long term (current) drug therapy; Z88.1 Allergy status to other antibiotic agents; Z88.8 Allergy status to other drugs, medicaments and biological substances
CPT/HCPCS: 96372; 99284; J1885

== ENCOUNTER → 2018-08-21 | Outpatient (REF) | payer MEDICARE, MEDICAID ==
[~2018-08-21] MED LIST changes: +MM S100C PO; -STOO100C PO
[2018-08-21 10:11] LABS: BASO % 0.8 % (0.0-1.0); EOS # 0.1 10^3/uL (0.0-0.50); EOS % 2.3 % (0.0-3.0); HEMATOCRIT 43.9 % (36.0-47.0); HEMOGLOBIN 14.6 g/dl (12.0-15.5); LYMPH # 1.6 10^3/uL (1.5-4.5); LYMPH % 29.9 % (24.0-44.0); MEAN CORPUSCULAR HEMOGLOBIN 31.7 pg (27.0-33.0); MEAN CORPUSCULAR HGB CONC 33.3 g/dl (32.0-36.5); MEAN CORPUSCULAR VOLUME 95.2 fl (80.0-96.0); MONO # 0.4 10^3/uL (0.0-0.8); MONO % 7.6 % (0.0-5.0); NEUTROPHILS # 3.1 10^3/uL (1.8-7.7); PLATELET COUNT, AUTOMATED 286 10^3/uL (150-450); RED BLOOD COUNT 4.61 10^6/uL (4.00-5.40); WHITE BLOOD COUNT 5.3 10^3/uL (4.0-10.0)
[2018-08-21 10:19] LABS: APPEARANCE, URINE CLEAR (CLEAR); BACTERIA, URINE AUTO 1+ (NEGATIVE); BILIRUBIN, URINE AUTO NEGATIVE (NEGATIVE); BLOOD, URINE BLOOD NEGATIVE (NEGATIVE); COLOR, URINE YELLOW (YELLOW); GLUCOSE, URINE (UA) AUTO NEGATIVE (NEGATIVE); KETONE, URINE AUTO NEGATIVE (NEGATIVE); LEUKOCYTE ESTERASE, URINE AUTO NEGATIVE (NEGATIVE); NITRITE, URINE AUTO NEGATIVE (NEGATIVE); PROTEIN, URINE AUTO NEGATIVE (NEGATIVE); RBC, URINE AUTO 1 /HPF (0-3); SPECIFIC GRAVITY URINE AUTO 1.002 (1.002-1.035); SQUAMOUS EPITHELIAL CELL UR AU 2 /HPF (0-6); UROBILINOGEN, URINE AUTO 0.2 mg/dL (0.0-2.0); WBC, URINE AUTO 0 /HPF (0-3)
[2018-08-21 10:26] LABS: ALBUMIN 3.8 GM/DL (3.2-5.2); ALT/SGPT 23 U/L (12-78); BILIRUBIN,TOTAL 0.3 MG/DL (0.2-1.0); BLOOD UREA NITROGEN 6 MG/DL (7-18); CALCIUM LEVEL 9.2 MG/DL (8.5-10.1); CARBON DIOXIDE LEVEL 27 MEQ/L (21-32); CHLORIDE LEVEL 109 MEQ/L (98-107); CREATININE FOR GFR 1.13 MG/DL (0.55-1.30); GLOMERULAR FILTRATION RATE 56.8 (>58); GLUCOSE, FASTING 98 MG/DL (70-100); POTASSIUM SERUM 4.4 MEQ/L (3.5-5.1); SODIUM LEVEL 140 MEQ/L (136-145); THYROID STIMULATING HORMONE 0.906 uIU/ML (0.358-3.740); TOTAL PROTEIN 7.1 GM/DL (6.4-8.2)
[2018-08-21 10:58] LABS: HEMOGLOBIN A1c 6.1 %
[2018-08-22 11:18] LABS: HIV 1&2 SCREEN CENTAUR NEGATIVE (NEGATIVE)
== END ==
LOC: M SFHCPLAZ 07:57
PROVIDERS: ATTEND Family Medicine
DX: R63.4 Abnormal weight loss (principal); Z23 Encounter for immunization
CPT/HCPCS: 36415; 80053; 81001; 83036; 84443; 85025; 87389; 90471; 90715; G0463; G0472

== ENCOUNTER → 2018-09-27 | Outpatient (CLI) | payer MEDICARE, MEDICAID ==
[2018-09-27 17:39] LABS: BASO # 0.1 10^3/uL (0.0-0.2); BASO % 0.8 % (0.0-1.0); EOS # 0.2 10^3/uL (0.0-0.50); EOS % 2.6 % (0.0-3.0); HEMOGLOBIN 12.6 g/dl (12.0-15.5); LYMPH # 2.8 10^3/uL (1.5-4.5); LYMPH % 38.9 % (24.0-44.0); MEAN CORPUSCULAR HEMOGLOBIN 30.4 pg (27.0-33.0); MEAN CORPUSCULAR HGB CONC 32.3 g/dl (32.0-36.5); MEAN CORPUSCULAR VOLUME 94.2 fl (80.0-96.0); MONO # 0.5 10^3/uL (0.0-0.8); MONO % 7.3 % (0.0-5.0); NEUTROPHILS # 3.7 10^3/uL (1.8-7.7); NEUTROPHILS % 50.1 % (36.0-66.0); PLATELET COUNT, AUTOMATED 254 10^3/uL (150-450); RED BLOOD COUNT 4.14 10^6/uL (4.00-5.40); WHITE BLOOD COUNT 7.3 10^3/uL (4.0-10.0)
[2018-09-27 18:02] LABS: ALBUMIN 3.8 GM/DL (3.2-5.2); ALT/SGPT 21 U/L (12-78); BILIRUBIN,TOTAL 0.2 MG/DL (0.2-1.0); BLOOD UREA NITROGEN 10 MG/DL (7-18); CALCIUM LEVEL 8.9 MG/DL (8.5-10.1); CARBON DIOXIDE LEVEL 28 MEQ/L (21-32); CHLORIDE LEVEL 109 MEQ/L (98-107); CHOLESTEROL LEVEL 154 MG/DL (<200); CHOLESTEROL RISK RATIO 4.052 (<5); CREATININE FOR GFR 1.07 MG/DL (0.55-1.30); FREE T4 0.64 NG/DL (0.76-1.46); GLOMERULAR FILTRATION RATE > 60.0 (>58); GLUCOSE, FASTING 62 MG/DL (70-100); HDL CHOLESTEROL 38 MG/DL (>40); LDL CHOLESTEROL 86 MG/DL (<100); NON-HDL-C 116 MG/DL; POTASSIUM SERUM 3.6 MEQ/L (3.5-5.1); SODIUM LEVEL 142 MEQ/L (136-145); TOTAL PROTEIN 6.8 GM/DL (6.4-8.2); TRIGLYCERIDES LEVEL 150 MG/DL (<150)
[2018-09-27 19:46] LABS: HEMOGLOBIN A1c 6.1 %
[2018-10-04 00:14] LABS: CLOZAPINE 1 None Detected ng/mL (350-650); CLOZAPINE 2 None Detected (Not Estab.)
== END ==
LOC: M LAB 16:08
DX: Z13.89 Encounter for screening for other disorder (principal); Z79.899 Other long term (current) drug therapy

== ENCOUNTER → 2018-10-15 | Outpatient (REF) | payer MEDICARE, MEDICAID ==
[2018-10-15 15:09] LABS: CHLAMYDIA DNA AMPLIFICATION NEGATIVE (NEGATIVE); GC DNA AMPLIFICATION NEGATIVE (NEGATIVE)
== END ==
LOC: M LAB REF 13:16
PROVIDERS: ATTEND Advanced Practice Midwife
DX: Z11.3 Encounter for screening for infections with a predominantly sexual mode of transmission (principal)

== ENCOUNTER → 2018-10-17 | Outpatient (CLI) | payer MEDICARE, MEDICAID ==
[2018-10-17 14:43] LABS: HEPATITIS A ANTIBODY IGM NEGATIVE (NEGATIVE); HEPATITIS B CORE ANTIBODY IGM NEGATIVE (NEGATIVE); HEPATITIS B SURFACE ANTIGEN NEGATIVE (NEGATIVE); HIV 1&2 SCREEN CENTAUR NEGATIVE (NEGATIVE)
== END ==
LOC: M LAB 11:51
PROVIDERS: ATTEND Advanced Practice Midwife
DX: Z11.3 Encounter for screening for infections with a predominantly sexual mode of transmission (principal)

== ENCOUNTER → 2018-10-19 | Outpatient (CLI) | payer MEDICARE, MEDICAID ==
[~2018-10-19] MED LIST changes: +CLON0.25 PO; +HYDR1TAB33 PO; +MECL-86 PO; +MECL1TAB31 PO; -OMEP40CA2 PO; +OMEP40CA97 PO; +ONDA-83 PO; -ONDA4TAB5 PO; +ZITHTAB PO; +ZOFR8TAB24 PO
--- NOTE | 2018-10-19 10:59 | REPMRS ---
Patient History The patient states she had a clinical breast exam in 2018. Family history of breast cancer at age 45 in sister, breast cancer at age 50 or over in maternal aunt, colorectal cancer under age 50 in father. 3D TOMOSYNTHESIS WAS PERFORMED. Digital Mammo Screening Bilat: October 19, 2018 - Exam #: [id number] Bilateral CC and MLO view(s) were taken. Technologist: Jennifer Beasley, Technologist Prior study comparison: October 11, 2017, bilateral digital mammo screening bilat performed at [facility]. October 09, 2014, bilateral digital mammo screening bilat performed at [facility]. FINDINGS: There are scattered fibroglandular densities. There has been no change in the appearance of the mammogram from the prior studies. There is a mild amount of residual fibroglandular tissue which is fairly symmetric. There is no interval development of dominant mass, architectural distortion, or clustered microcalcification suggestive of malignancy. Assessment: BI-RADS/ACR category 1 mammogram. Negative Mammogram. Recommendation Routine screening mammogram in 1 year (for women over age 40). This mammogram was interpreted with the aid of an FDA-approved computer-aided dectection system. THE LIFETIME RISK OF BREAST CANCER IS 32.6%, THEREFORE SUPPLEMENTAL SCREENING MRI OF THE BREASTS IS RECOMMENDED IN 6 MONTHS. Electronically Signed By: Jeff Harrison MD 10/19/18 [id number]
== END ==
LOC: M RAD 09:33
PROVIDERS: ATTEND Advanced Practice Midwife
DX: Z12.31 Encounter for screening mammogram for malignant neoplasm of breast (principal)

== ENCOUNTER 2018-10-24 07:30 | Outpatient (RCR) | payer MEDICARE, MEDICAID ==
[~2018-10-24 07:30] MED LIST changes: -CLON0.25 PO; -HYDR1TAB33 PO; -MECL-86 PO; -MECL1TAB31 PO; +OMEP40CA2 PO; -OMEP40CA97 PO; -ONDA-83 PO; +ONDA4TAB5 PO; -ZITHTAB PO; -ZOFR8TAB24 PO
== END 2018-10-27 ==
LOC: M ST 07:30
PROVIDERS: ATTEND Nurse Practitioner Family
DX: Z51.89 Encounter for other specified aftercare (principal); F07.81 Postconcussional syndrome; R47.89 Other speech disturbances
CPT/HCPCS: 96125; 97165; 97530; G0515

== ENCOUNTER 2018-10-31 12:49 | Outpatient (RCR) | payer MEDICARE, MEDICAID ==
[2018-11-23] MEDS ORDERED: ZOFR4TAB16 PO (15:42)
[2018-11-23] MEDS ORDERED: HYDR1TAB33 PO (15:42)
[2018-11-23] MEDS ORDERED: IBUP80TA PO (15:42)
[2018-11-23] MEDS ORDERED: MECL-86 PO (15:42)
[2018-11-23] MEDS ORDERED: PRED20TA PO (17:12)
[2018-11-23] MEDS ORDERED: ZITHTAB PO (17:12)
== END 2018-11-26 ==
LOC: M ST 12:49
PROVIDERS: ATTEND Nurse Practitioner Family
DX: Z51.89 Encounter for other specified aftercare (principal); F07.81 Postconcussional syndrome
CPT/HCPCS: 97530; G0515

== ENCOUNTER → 2018-11-02 | Outpatient (REF) | payer MEDICARE, MEDICAID ==
[2018-11-02 11:55] LABS: ALT/SGPT 23 U/L (12-78); BILIRUBIN,TOTAL 0.5 MG/DL (0.2-1.0); BLOOD UREA NITROGEN 19 MG/DL (7-18); CALCIUM LEVEL 9.3 MG/DL (8.5-10.1); CARBON DIOXIDE LEVEL 27 MEQ/L (21-32); CHLORIDE LEVEL 109 MEQ/L (98-107); CREATININE FOR GFR 1.04 MG/DL (0.55-1.30); GLOMERULAR FILTRATION RATE > 60.0 (>58); GLUCOSE, FASTING 112 MG/DL (70-100); POTASSIUM SERUM 4.6 MEQ/L (3.5-5.1); SODIUM LEVEL 141 MEQ/L (136-145); TOTAL PROTEIN 7.2 GM/DL (6.4-8.2)
== END ==
LOC: M SFHCPLAZ 07:55
PROVIDERS: ATTEND Family Medicine
DX: R63.8 Other symptoms and signs concerning food and fluid intake (principal)

== ENCOUNTER 2018-11-23 15:16 | Emergency (ER) | payer MEDICARE, MEDICAID ==
[~2018-11-23] VITALS: Ht 162.6 cm; Wt 75.4 kg
[2018-11-23] MEDS ORDERED: MECL-86 PO (15:42)
[2018-11-23] MEDS ORDERED: ZOFR4TAB16 PO (15:42)
[2018-11-23] MEDS ORDERED: HYDR1TAB33 PO (15:42)
[2018-11-23] MEDS ORDERED: IBUP80TA PO (15:42)
[2018-11-23 15:59] LABS: BASO # 0.1 10^3/uL (0.0-0.2); BASO % 0.8 % (0.0-1.0); EOS # 0.2 10^3/uL (0.0-0.5); EOS % 2.8 % (0.0-3.0); HEMATOCRIT 38.9 % (36.0-47.0); LYMPH # 2.8 10^3/uL (1.5-5.0); MEAN CORPUSCULAR HEMOGLOBIN 31.3 pg (27.0-33.0); MEAN CORPUSCULAR HGB CONC 33.4 g/dl (32.0-36.5); MEAN CORPUSCULAR VOLUME 93.5 fl (80.0-96.0); MONO # 0.7 10^3/uL (0.0-0.8); MONO % 8.9 % (0.0-5.0); NEUTROPHILS # 3.8 10^3/uL (1.5-8.5); NEUTROPHILS % 50.4 % (36.0-66.0); PLATELET COUNT, AUTOMATED 242 10^3/uL (150-450); RED BLOOD COUNT 4.16 10^6/uL (4.00-5.40); WHITE BLOOD COUNT 7.5 10^3/uL (4.0-10.0)
[2018-11-23] MEDS ORDERED: methylPREDNISolone INJ 125 MG/2 ML VIAL (J2930) IV ONE (16:15)
[2018-11-23] MEDS ORDERED: ALBUTEROL SULFATE 2.5 MG/0.5 ML INH NEB SOLN INH ONE (16:15)
[2018-11-23] MEDS ORDERED: IPRATROPIUM 0.5MG/ALBUTEROL 2.5MG INH SOL UD 3ML (DUONEB)(J7620) NEB ONE (16:15)
--- NOTE | 2018-11-23 16:15 | REP ---
Chest x-ray: Two views. History: Dyspnea and cough. Comparison study: April 17, 2018. Findings: EKG monitoring electrodes overlie the chest. The lungs are symmetrically aerated and clear. Pleural angles are sharp. Heart size is normal. No significant bony abnormality is seen. Impression: Negative chest x-ray. Electronically Signed by Owen Silva MD 11/23/2018 04:08 P
[2018-11-23 16:32] LABS: BLOOD UREA NITROGEN 10 MG/DL (7-18); CALCIUM LEVEL 8.8 MG/DL (8.5-10.1); CARBON DIOXIDE LEVEL 25 MEQ/L (21-32); CHLORIDE LEVEL 109 MEQ/L (98-107); CREATININE FOR GFR 0.97 MG/DL (0.55-1.30); GLOMERULAR FILTRATION RATE > 60.0 (>58); GLUCOSE, FASTING 92 MG/DL (70-100); POTASSIUM SERUM 3.8 MEQ/L (3.5-5.1); SODIUM LEVEL 141 MEQ/L (136-145)
[2018-11-23 16:43] LABS: HCG, SERUM QUALITATIVE NEGATIVE (NEGATIVE)
[2018-11-23 17:00] VITALS: BP 107/53
[2018-11-23] MEDS ORDERED: PRED20TA PO (17:12)
[2018-11-23] MEDS ORDERED: ZITHTAB PO (17:12)
--- NOTE | 2018-11-23 20:13 | ECGEPIP ---
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
== END 2018-11-23 17:20 | disposition home or self-care (01) ==
LOC: EDBD 15:16 → M ED 15:16
DX: J44.1 Chronic obstructive pulmonary disease with (acute) exacerbation (principal); J40 Bronchitis, not specified as acute or chronic; E78.9 Disorder of lipoprotein metabolism, unspecified; K21.9 Gastro-esophageal reflux disease without esophagitis; F33.9 Major depressive disorder, recurrent, unspecified; F41.9 Anxiety disorder, unspecified; F20.9 Schizophrenia, unspecified; Z79.899 Other long term (current) drug therapy; Z79.82 Long term (current) use of aspirin; Z88.1 Allergy status to other antibiotic agents; Z88.8 Allergy status to other drugs, medicaments and biological substances; F17.210 Nicotine dependence, cigarettes, uncomplicated
CPT/HCPCS: 71046; 80048; 81001; 84703; 85025; 85379; 93005; 93041; 94640; 94760; 96374; 99285; J2930

== ENCOUNTER → 2018-12-19 | Outpatient (CLI) | payer MEDICARE, MEDICAID ==
[~2018-12-19] MED LIST changes: +HYDR1TAB33 PO; +MECL-86 PO; -OMEP40CA2 PO; +OMEP40CA97 PO; +ZITHTAB PO
[2018-12-26 00:07] LABS: DULOXETINE (CYMBALTA) LEVEL 44.6 ng/mL (.); LAMOTRIGINE (LAMICTAL) 4.2 ug/mL (2.0-20.0); QUETIAPINE LEVEL (SEROQUEL) 435 ng/ml (.)
== END ==
LOC: M LAB 10:49
PROVIDERS: ATTEND Psychiatry & Neurology Child & Adolescent Psychiatry
DX: G31.84 Mild cognitive impairment of uncertain or unknown etiology (principal); F43.10 Post-traumatic stress disorder, unspecified; Z79.899 Other long term (current) drug therapy
CPT/HCPCS: 36415; 80175; G0480

== ENCOUNTER 2019-01-13 09:09 | Emergency (ER) | payer MEDICARE, MEDICAID ==
[~2019-01-13] VITALS: Ht 162.6 cm; Wt 75.5 kg
[2019-01-13] MEDS ORDERED: LIDOCAINE 5% (LIDODERM) PATCH TD ONE (09:45)
[2019-01-13 10:38] VITALS: BP 134/76
[2019-01-13] MEDS ORDERED: **NOTE PATIENT COMMENT** MISC XX SCH (21:00)
--- NOTE | 2019-01-14 07:45 | REP ---
Right rib series: Six views including PA chest. History: Injury in a fall. Findings: PA chest radiograph shows no evidence of pneumothorax or hydrothorax. Mediastinum is not widened. Heart size is normal. Multiple views of the right ribcage demonstrate no visible rib fracture or bony destructive lesion. There are clips in right upper quadrant of the abdomen. Impression: No fracture seen. No acute disease. Electronically Signed by Owen Silva MD 01/13/2019 10:05 A
== END 2019-01-13 11:05 | disposition home or self-care (01) ==
LOC: M ED 09:09
DX: S20.221A Contusion of right back wall of thorax, initial encounter (principal); W18.39XA Other fall on same level, initial encounter; Y92.410 Unspecified street and highway as the place of occurrence of the external cause; J45.909 Unspecified asthma, uncomplicated; J44.9 Chronic obstructive pulmonary disease, unspecified; Z79.899 Other long term (current) drug therapy; Z79.82 Long term (current) use of aspirin; Z88.1 Allergy status to other antibiotic agents; Z88.8 Allergy status to other drugs, medicaments and biological substances; F17.210 Nicotine dependence, cigarettes, uncomplicated

== ENCOUNTER 2019-01-22 12:39 | Emergency (ER) | payer MEDICARE, MEDICAID ==
[~2019-01-22] VITALS: Ht 162.6 cm; Wt 72.2 kg
--- NOTE | 2019-01-22 13:45 | REP ---
Head CT without contrast: History: Headache after a fall. Comparison study: Comparison brain CT January 23, 2018. Comparison brain MRI study January 23, 2018. CT findings: Bone window settings demonstrate an intact bony calvarium. There is no evidence of skull fracture or incidental bony calvarial lesion. The visualized paranasal sinuses appear clear. No intraorbital abnormality is seen. On soft tissue window setting images; the lateral, third, and fourth ventricles are normal in size and position. Harrison-white differentiation pattern is normal above and below the tentorium. There are is no evidence of intracranial hemorrhage. No mass, edema, infarction, or midline shift is seen. No extra-axial fluid collection is appreciated. Impression: Negative noncontrast head CT. Electronically Signed by Owen Silva MD 01/22/2019 01:37 P
--- NOTE | 2019-01-22 13:52 | REP ---
Clinical: Trauma. Fall. Technique: Internal rotation, external rotation, and Y view left shoulder . Findings: No acute fracture or dislocation. The acromioclavicular and glenohumeral joints are intact. No periarticular calcifications or degenerative changes are appreciated. Sub acromial space is normal. Surrounding soft tissues are unremarkable. Impression: Normal left shoulder radiographs. Electronically Signed by Henrik Finnegan MD 01/22/2019 01:43 P
[2019-01-22 14:05] VITALS: BP 122/78
[2019-01-22] MEDS ORDERED: MECL-68 PO (14:05)
== END 2019-01-22 14:10 | disposition home or self-care (01) ==
LOC: M ED 12:39
DX: S40.012A Contusion of left shoulder, initial encounter (principal); S09.90XA Unspecified injury of head, initial encounter; W18.39XA Other fall on same level, initial encounter; Y92.018 Other place in single-family (private) house as the place of occurrence of the external cause; H81.392 Other peripheral vertigo, left ear; J44.9 Chronic obstructive pulmonary disease, unspecified; Z79.899 Other long term (current) drug therapy; Z79.82 Long term (current) use of aspirin; Z88.1 Allergy status to other antibiotic agents; Z88.8 Allergy status to other drugs, medicaments and biological substances; F17.210 Nicotine dependence, cigarettes, uncomplicated

== ENCOUNTER → 2019-02-04 | Outpatient (REF) | payer MEDICARE, MEDICAID ==
[~2019-02-04] MED LIST changes: +MECL-68 PO
[2019-02-04 11:49] LABS: APPEARANCE, URINE HAZY (CLEAR); BACTERIA, URINE AUTO NEGATIVE (NEGATIVE); BILIRUBIN, URINE AUTO NEGATIVE (NEGATIVE); BLOOD, URINE BLOOD NEGATIVE (NEGATIVE); COLOR, URINE YELLOW (YELLOW); GLUCOSE, URINE (UA) AUTO NEGATIVE (NEGATIVE); KETONE, URINE AUTO TRACE mg/dL (NEGATIVE); LEUKOCYTE ESTERASE, URINE AUTO NEGATIVE (NEGATIVE); NITRITE, URINE AUTO NEGATIVE (NEGATIVE); PROTEIN, URINE AUTO 1+ mg/dL (NEGATIVE); RBC, URINE AUTO 3 /HPF (0-3); SPECIFIC GRAVITY URINE AUTO 1.011 (1.002-1.035); SQUAMOUS EPITHELIAL CELL UR AU 7 /HPF (0-6); UROBILINOGEN, URINE AUTO 0.2 mg/dL (0.0-2.0); WBC, URINE AUTO 4 /HPF (0-3)
== END ==
LOC: M SFHCPLAZ 11:39
PROVIDERS: ATTEND Family Medicine
DX: Z87.448 Personal history of other diseases of urinary system (principal); Z79.899 Other long term (current) drug therapy
CPT/HCPCS: 81001; 87086; G0463

== ENCOUNTER → 2019-02-05 | Outpatient (CLI) | payer MEDICARE, MEDICAID ==
--- NOTE | 2019-02-05 17:19 | REP ---
Two views left hip: 02/05/2019. Indication: Left hip pain. Comparison: None. Findings: There is no acute fracture, subluxation or dislocation. No significant osteoarthritic sequelae are present. There are no lytic or blastic lesions detected. Impression: No acute osseous injury of the left hip. Electronically Signed by Ryan Wilkins DO 02/05/2019 05:11 P
== END ==
LOC: M RAD 15:33
PROVIDERS: ATTEND Family Medicine
DX: M25.552 Pain in left hip (principal); M54.5 Low back pain; M54.6 Pain in thoracic spine

== ENCOUNTER → 2019-02-06 | Outpatient (CLI) | payer MEDICARE, MEDICAID ==
--- NOTE | 2019-02-06 13:20 | REP ---
Seven views lumbar spine: 02/06/2019. Indication: Low back pain. Comparison: None. Findings: There is no acute fracture, subluxation or dislocation. No lytic or blastic lesions of the lumbar spine are detected. Increased fecal material is noted throughout the colon particularly on the left. There is no evidence of instability on the dynamic images. Impression: No acute osseous injury of the lumbar spine. Constipation? Electronically Signed by Rayn Wilkins DO 02/06/2019 01:11 P
== END ==
LOC: M LAB 12:27 → M RAD 12:27
PROVIDERS: ATTEND Family Medicine
DX: M25.552 Pain in left hip (principal); M54.5 Low back pain

== ENCOUNTER 2019-02-12 08:07 | Emergency (ER) | payer MEDICARE, MEDICAID ==
[~2019-02-12] VITALS: Ht 162.6 cm; Wt 66.4 kg
[2019-02-12] MEDS ORDERED: MELOXICAM (MOBIC) 7.5 MG TAB PO SCH (09:00)
[2019-02-12] MEDS ORDERED: TOPIRAMATE (TopAMAX) 100 MG TAB PO ONE (09:30)
[2019-02-12] MEDS ORDERED: DULoxetine 30 MG CAP (CYMBALTA) PO ONE (09:30)
[2019-02-12] MEDS ORDERED: CYCLOBENZAPRINE 10 MG TAB PO ONE (09:30)
--- NOTE | 2019-02-12 10:03 | REP ---
CT brain: 02/12/2019. Indication: Stroke. Comparison: 6 days earlier. Technique: Unenhanced axial CT images of the brain were obtained from skull base to vertex. Findings: There is no acute intracranial hemorrhage, acute cortical infarction, mass effect or hydrocephalous. Mild diffuse volume loss is present. Impression: No acute intracranial process. Electronically Signed by Ryan Wilkins DO 02/12/2019 09:55 A
--- NOTE | 2019-02-12 10:11 | REP ---
CT cervical spine: 02/12/2019. Indication: Arm numbness/weakness. Comparison: 10/22/2016. Technique: Unenhanced axial CT images of the cervical spine were performed with coronal and sagittal reconstructions provided. Findings: There is no acute fracture, subluxation or dislocation. Mild diffuse disc osteophyte is present at C3/C4 without significant spinal canal / neural foraminal narrowing. No lytic or blastic cervical spine osseous lesions are present. Impression: No acute osseous injury of the cervical spine. No significant spinal canal or neural foraminal narrowing detected. Electronically Signed by Ryan Wilkins DO 02/12/2019 10:03 A
[2019-02-12 10:23] LABS: BASO # 0.1 10^3/uL (0.0-0.2); BASO % 1.1 % (0.0-1.0); EOS # 0.1 10^3/uL (0.0-0.5); EOS % 1.7 % (0.0-3.0); HEMATOCRIT 45.4 % (36.0-47.0); HEMOGLOBIN 14.7 g/dl (12.0-15.5); LYMPH # 1.8 10^3/uL (1.5-5.0); LYMPH % 27.1 % (24.0-44.0); MEAN CORPUSCULAR HEMOGLOBIN 29.6 pg (27.0-33.0); MEAN CORPUSCULAR HGB CONC 32.4 g/dl (32.0-36.5); MEAN CORPUSCULAR VOLUME 91.3 fl (80.0-96.0); MONO # 0.5 10^3/uL (0.0-0.8); NEUTROPHILS % 61.8 % (36.0-66.0); PLATELET COUNT, AUTOMATED 317 10^3/uL (150-450); RED BLOOD COUNT 4.97 10^6/uL (4.00-5.40); WHITE BLOOD COUNT 6.5 10^3/uL (4.0-10.0)
[2019-02-12 10:44] LABS: ERYTHROCYTE SEDIMENTATION RATE 3 mm/hr (0-20)
[2019-02-12 10:45] LABS: BLOOD UREA NITROGEN 9 MG/DL (7-18); C REACTIVE PROTEIN QUANTITATIV < 0.30 MG/DL (0.00-0.30); CALCIUM LEVEL 9.4 MG/DL (8.5-10.1); CARBON DIOXIDE LEVEL 24 MEQ/L (21-32); CHLORIDE LEVEL 107 MEQ/L (98-107); CREATININE FOR GFR 1.14 MG/DL (0.55-1.30); GLOMERULAR FILTRATION RATE 55.9 (>58); GLUCOSE, FASTING 86 MG/DL (70-100); POTASSIUM SERUM 3.7 MEQ/L (3.5-5.1); SODIUM LEVEL 140 MEQ/L (136-145)
[2019-02-12 11:59] VITALS: BP 170/103
== END 2019-02-12 12:01 | disposition home or self-care (01) ==
LOC: M ED 08:07
DX: G89.29 Other chronic pain (principal); M54.5 Low back pain; M25.552 Pain in left hip; M79.605 Pain in left leg; R53.1 Weakness; J44.9 Chronic obstructive pulmonary disease, unspecified; J45.909 Unspecified asthma, uncomplicated; D50.9 Iron deficiency anemia, unspecified; F43.10 Post-traumatic stress disorder, unspecified; F20.9 Schizophrenia, unspecified; K21.9 Gastro-esophageal reflux disease without esophagitis; Z79.899 Other long term (current) drug therapy; Z79.82 Long term (current) use of aspirin; Z88.1 Allergy status to other antibiotic agents; Z88.8 Allergy status to other drugs, medicaments and biological substances

== ENCOUNTER 2019-03-03 17:55 | Emergency (ER) | payer MEDICARE, MEDICAID ==
[~2019-03-03] VITALS: Ht 162.6 cm; Wt 66.4 kg
[2019-03-03] MEDS ORDERED: ZOFR8TAB24 PO (18:52)
[2019-03-03] MEDS ORDERED: CLON0.25 PO (18:52)
[2019-03-03 19:33] LABS: BASO # 0.1 10^3/uL (0.0-0.2); BASO % 1.1 % (0.0-1.0); EOS # 0.2 10^3/uL (0.0-0.5); EOS % 3.3 % (0.0-3.0); HEMATOCRIT 42.4 % (36.0-47.0); HEMOGLOBIN 13.9 g/dl (12.0-15.5); LYMPH # 2.8 10^3/uL (1.5-5.0); MEAN CORPUSCULAR HEMOGLOBIN 29.9 pg (27.0-33.0); MEAN CORPUSCULAR HGB CONC 32.8 g/dl (32.0-36.5); MEAN CORPUSCULAR VOLUME 91.2 fl (80.0-96.0); MONO # 0.6 10^3/uL (0.0-0.8); MONO % 7.7 % (0.0-5.0); NEUTROPHILS # 3.5 10^3/uL (1.5-8.5); NEUTROPHILS % 48.8 % (36.0-66.0); PLATELET COUNT, AUTOMATED 254 10^3/uL (150-450); RED BLOOD COUNT 4.65 10^6/uL (4.00-5.40); WHITE BLOOD COUNT 7.2 10^3/uL (4.0-10.0)
[2019-03-03 19:56] LABS: INR 1.11; PARTIAL THROMBOPLASTIN TIME 29.8 SECONDS (25.0-38.4)
[2019-03-03 20:21] VITALS: BP 123/75
== END 2019-03-03 20:27 | disposition home or self-care (01) ==
LOC: M ED 17:55
DX: M79.605 Pain in left leg (principal); J44.9 Chronic obstructive pulmonary disease, unspecified; E78.5 Hyperlipidemia, unspecified; F20.9 Schizophrenia, unspecified; Z79.899 Other long term (current) drug therapy; Z79.82 Long term (current) use of aspirin; Z88.1 Allergy status to other antibiotic agents; Z88.8 Allergy status to other drugs, medicaments and biological substances; F17.210 Nicotine dependence, cigarettes, uncomplicated

== ENCOUNTER → 2019-03-26 | Outpatient (REF) | payer MEDICARE, MEDICAID ==
[~2019-03-26] MED LIST changes: +CLON0.25 PO; -MECL-68 PO; +MECL1TAB31 PO; +ONDA-83 PO; -ONDA4TAB5 PO; +ZOFR8TAB24 PO
[2019-03-26 13:17] LABS: BASO # 0.1 10^3/uL (0.0-0.2); BASO % 1.3 % (0.0-1.0); EOS # 0.2 10^3/uL (0.0-0.5); EOS % 3.3 % (0.0-3.0); HEMATOCRIT 45.1 % (36.0-47.0); HEMOGLOBIN 14.1 g/dl (12.0-15.5); LYMPH # 1.9 10^3/uL (1.5-5.0); LYMPH % 26.4 % (24.0-44.0); MEAN CORPUSCULAR HEMOGLOBIN 28.8 pg (27.0-33.0); MEAN CORPUSCULAR HGB CONC 31.3 g/dl (32.0-36.5); MONO # 0.6 10^3/uL (0.0-0.8); MONO % 8.3 % (0.0-5.0); NEUTROPHILS # 4.3 10^3/uL (1.5-8.5); NEUTROPHILS % 60.3 % (36.0-66.0); PLATELET COUNT, AUTOMATED 328 10^3/uL (150-450); WHITE BLOOD COUNT 7.2 10^3/uL (4.0-10.0)
[2019-03-26 13:26] LABS: ALBUMIN 4.2 GM/DL (3.2-5.2); BILIRUBIN,TOTAL 0.5 MG/DL (0.2-1.0); CALCIUM LEVEL 9.3 MG/DL (8.5-10.1); CHOLESTEROL RISK RATIO 4.045 (<5); CREATININE FOR GFR 1.08 MG/DL (0.55-1.30); FREE T4 0.74 NG/DL (0.76-1.46); GLOMERULAR FILTRATION RATE 59.5 (>58); POTASSIUM SERUM 3.8 MEQ/L (3.5-5.1); THYROID STIMULATING HORMONE 0.874 uIU/ML (0.358-3.740); TOTAL 25(OH) VITAMIN D 99.3 NG/ML (30.0-100.0); TOTAL PROTEIN 7.3 GM/DL (6.4-8.2)
[2019-03-26 13:49] LABS: HEMOGLOBIN A1c 6.2 %
== END ==
LOC: M LAB REF 12:30
PROVIDERS: ATTEND Nurse Practitioner Family
DX: F41.8 Other specified anxiety disorders (principal); E78.5 Hyperlipidemia, unspecified; Z13.9 Encounter for screening, unspecified; N39.498 Other specified urinary incontinence; M54.9 Dorsalgia, unspecified; M79.605 Pain in left leg; Z79.899 Other long term (current) drug therapy

== ENCOUNTER → 2019-04-03 | Outpatient (CLI) | payer MEDICARE, MEDICAID ==
--- NOTE | 2019-04-03 20:01 | REP ---
MRI left hip without contrast: History: Left hip pain. Comparison radiographs are from February 05, 2019. Technique: Coronal T1 and T2-weighted scans are obtained of both hips. In addition, smaller field of view high resolution T2 fat sat images are obtained in the left hip in all three planes. MRI findings: There is an abnormal area of bone signal intensity in the weightbearing surface of the femoral head characterized by hyperintense T2 signal surrounding a low T1 low T2 signal intensity area in the subcortical bone of the femoral head on the left consistent with avascular necrosis. The area involved measures 2.6 cm in oblique medial to lateral span by 3.9 cm anterior to posterior. There are anterior and posterior areas of involvement. There is no definite flattening. There is however a small joint effusion on the left. No labral tear is seen. Cortical and medullary bone signal intensity is normal in the right hip and in the visualized bony pelvic ring. No loose body is apparent. No pelvic mass or adenopathy is seen. 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 There is a secondary joint effusion. No visible impaction or flattening is seen. Electronically Signed by Owen Silva MD 04/04/2019 08:05 A
== END ==
LOC: M RAD 16:11
PROVIDERS: ATTEND Orthopaedic Surgery
DX: M25.452 Effusion, left hip (principal); M87.052 Idiopathic aseptic necrosis of left femur

== ENCOUNTER 2019-04-19 14:04 | Emergency (ER) | payer MEDICARE, MEDICAID ==
[~2019-04-19] VITALS: Ht 162.6 cm; Wt 57.0 kg
[2019-04-19] MEDS ORDERED: BUSP30TA PO (14:20)
[2019-04-19] MEDS ORDERED: NITROGLYCERIN 0.4 MG SUBL TABLET SL PRN (14:30)
[2019-04-19 14:36] VITALS: BP 108/70
[2019-04-19 14:36] LABS: BASO # 0.1 10^3/uL (0.0-0.2); BASO % 1.1 % (0.0-1.0); EOS # 0.1 10^3/uL (0.0-0.5); EOS % 2.3 % (0.0-3.0); HEMATOCRIT 38.1 % (36.0-47.0); HEMOGLOBIN 12.8 g/dl (12.0-15.5); LYMPH # 2.1 10^3/uL (1.5-5.0); LYMPH % 45.3 % (24.0-44.0); MEAN CORPUSCULAR HEMOGLOBIN 30.3 pg (27.0-33.0); MEAN CORPUSCULAR HGB CONC 33.6 g/dl (32.0-36.5); MEAN CORPUSCULAR VOLUME 90.1 fl (80.0-96.0); MONO # 0.5 10^3/uL (0.0-0.8); MONO % 9.5 % (0.0-5.0); NEUTROPHILS % 41.6 % (36.0-66.0); PLATELET COUNT, AUTOMATED 235 10^3/uL (150-450); RED BLOOD COUNT 4.23 10^6/uL (4.00-5.40); WHITE BLOOD COUNT 4.7 10^3/uL (4.0-10.0)
--- NOTE | 2019-04-19 14:41 | REP ---
Clinical: Chest pain . Comparison: 02/06/2019 . Technique: PA and lateral. Findings: The mediastinum and cardiac silhouette are normal. The lung luther are clear and without acute consolidation, effusion, or pneumothorax. The skeletal structures are intact and normal. Impression: 1. No acute cardiopulmonary process. Electronically Signed by Henrik Finnegan MD 04/19/2019 02:33 P
[2019-04-19 14:50] LABS: INR 1.06; PROTHROMBIN TIME 13.5 SECONDS (11.8-14.0)
[2019-04-19 14:51] LABS: PARTIAL THROMBOPLASTIN TIME 29.3 SECONDS (25.0-38.4)
[2019-04-19 14:53] LABS: D-DIMER QUANT 361.79 ng/ml (<500)
[2019-04-19 15:08] LABS: ALT/SGPT 22 U/L (12-78); BILIRUBIN,TOTAL 0.3 MG/DL (0.2-1.0); BLOOD UREA NITROGEN 11 MG/DL (7-18); CALCIUM LEVEL 8.9 MG/DL (8.5-10.1); CARBON DIOXIDE LEVEL 24 MEQ/L (21-32); CHLORIDE LEVEL 111 MEQ/L (98-107); CK-MB VALUE MASS 1.7 NG/ML (<3.6); CPK CREATINE PHOSPHOKINASE 105 U/L (26-192); CREATININE FOR GFR 0.96 MG/DL (0.55-1.30); GLOMERULAR FILTRATION RATE > 60.0 (>58); GLUCOSE, FASTING 87 MG/DL (70-100); MB/CK RELATIVE INDEX 1.62 (< OR =4); POTASSIUM SERUM 3.6 MEQ/L (3.5-5.1); SODIUM LEVEL 141 MEQ/L (136-145)
[2019-04-19 15:09] LABS: BILIRUBIN,DIRECT 0.1 MG/DL (0.0-0.2); FREE T4 0.81 NG/DL (0.76-1.46); LIPASE 80 U/L (73-393); TOTAL PROTEIN 6.9 GM/DL (6.4-8.2); TROPONIN I < 0.02 NG/ML (< 0.10)
[2019-04-19] MEDS ORDERED: NS 500 ML IV ONE ×2 (15:15→16:30)
[2019-04-19 21:11] LABS: CK-MB VALUE MASS 1.5 NG/ML (<3.6); CPK CREATINE PHOSPHOKINASE 83 U/L (26-192); MB/CK RELATIVE INDEX 1.81 (< OR =4); TROPONIN I < 0.02 NG/ML (< 0.10)
[2019-04-19 22:25] VITALS: BP 111/57
--- NOTE | 2019-04-21 20:34 | ECGEPIP ---
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
--- NOTE | 2019-04-21 20:38 | ECGEPIP ---
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
== END 2019-04-19 23:00 | disposition home or self-care (01) ==
LOC: M ED 14:04
DX: R07.9 Chest pain, unspecified (principal); R06.02 Shortness of breath; E78.5 Hyperlipidemia, unspecified; E55.9 Vitamin D deficiency, unspecified; D50.9 Iron deficiency anemia, unspecified; F25.9 Schizoaffective disorder, unspecified; F33.9 Major depressive disorder, recurrent, unspecified; F43.10 Post-traumatic stress disorder, unspecified; K21.9 Gastro-esophageal reflux disease without esophagitis; G43.909 Migraine, unspecified, not intractable, without status migrainosus; M79.18 Myalgia, other site; Z79.899 Other long term (current) drug therapy; Z79.82 Long term (current) use of aspirin; Z88.1 Allergy status to other antibiotic agents; Z88.8 Allergy status to other drugs, medicaments and biological substances; F17.210 Nicotine dependence, cigarettes, uncomplicated

== ENCOUNTER → 2019-05-08 | Outpatient (CLI) | payer MEDICARE, MEDICAID ==
[~2019-05-08] MED LIST changes: +BUSP30TA PO; +PROHANCE 279.3MG/ML 15ML VIAL (A9576) As Ordered ONE
--- NOTE | 2019-05-08 11:31 | REP ---
BILATERAL BREAST MRI STUDY WITHOUT AND WITH IV GADOLINIUM: HISTORY: Positive family history breast carcinoma. High-risk screening exam. Comparison mammography October 19, 2018. TECHNIQUE: Three Shana MRI imaging was performed with a dedicated breast coil. Axial, coronal, and sagittal T1 and T2-weighted scans were obtained with and without fat saturation in the usual fashion. The study includes dynamically acquired post gadolinium enhanced imaging subtraction imaging. Maximal intensity projection and multiplanar re-formation imaging is included as well. The study was interpreted with the aid of VM DiscoveryD, an FDA approved computer-aided detection (CAD) software program, on a dedicated breast MRI work station. The gadolinium enhancement dose is 12 mL of intravenous ProHance. FINDINGS: There are scattered fibroglandular elements distributed symmetrically. There is a minimal pattern of background parenchymal enhancement. There is no evidence of axillary lymphadenopathy. There is a 22 x 17 x 10 mm oval shaped well-circumscribed lesion along the left anterior chest wall in the pectoralis muscle attachments characterized by low T1- and low T2 signal intensity without evidence of contrast enhancement. This is not considered suspicious. An area of fat necrosis or a pectoralis muscle tear with hemorrhage is a possibility. Consider further evaluation with sonography. No suspicious morphologic abnormality is seen within either breast. Dynamically acquired sequential post contrast images show no suspicious focus of enhancement washout in either breast to suggest malignancy. Subtraction images are unremarkable. IMPRESSION: BIRADS category 0 incomplete study. There is no suspicious MRI abnormality. However, there is a low T1, low T2 signal intensity lesion along the left anterior chest wall of uncertain etiology, 2.2 cm in greatest diameter. Post-traumatic fat necrosis and hemorrhagic cyst or hematoma in the pectoralis muscle are possibilities. No suspicious contrast enhancement. Comparison sonography suggested. Electronically Signed by Owen Silva MD 05/08/2019 04:49 P
== END ==
LOC: M RAD 07:55
PROVIDERS: ATTEND Advanced Practice Midwife
DX: Z80.3 Family history of malignant neoplasm of breast (principal)
CPT/HCPCS: A9576; C8908

== ENCOUNTER 2019-05-19 14:37 | Emergency (ER) | payer MEDICARE, MEDICAID ==
[~2019-05-19] VITALS: Ht 162.6 cm; Wt 65.0 kg
[~2019-05-19 14:37] MED LIST changes: -PROHANCE 279.3MG/ML 15ML VIAL (A9576) As Ordered ONE
--- NOTE | 2019-05-19 15:48 | REP ---
Clinical: Pain and swelling. Technique: AP and lateral views of the left forearm. Findings: Evidence for prior open reduction and fixation involving the proximal ulna and radius. Lateral view suggests posterior swelling at the elbow which may reflect bursitis. No acute fracture dislocation. No periosteal reaction. Anterior fat pad is normal in position and appearance. Impression: Swelling at the posterior elbow possibly representing bursitis. Electronically Signed by Henrik Finnegan MD 05/19/2019 03:39 P
--- NOTE | 2019-05-19 15:49 | REP ---
Clinical: Pain and swelling. Technique: AP, lateral, bilateral oblique views of the left elbow. Findings: Evidence of prior open reduction and fixation involving the elbow/proximal ulna. Lateral view demonstrates posterior swelling which may represent bursitis. No acute fracture dislocation. No acute periosteal reaction. Impression: Posterior swelling may represent bursitis. Electronically Signed by Henrik Finnegan MD 05/19/2019 03:41 P
[2019-05-19 16:03] LABS: BASO # 0.1 10^3/uL (0.0-0.2); BASO % 0.8 % (0.0-1.0); EOS # 0.2 10^3/uL (0.0-0.5); EOS % 3.3 % (0.0-3.0); HEMOGLOBIN 12.8 g/dl (12.0-15.5); LYMPH # 1.2 10^3/uL (1.5-5.0); LYMPH % 19.5 % (24.0-44.0); MEAN CORPUSCULAR HEMOGLOBIN 30.8 pg (27.0-33.0); MEAN CORPUSCULAR HGB CONC 33.7 g/dl (32.0-36.5); MEAN CORPUSCULAR VOLUME 91.6 fl (80.0-96.0); MONO # 0.6 10^3/uL (0.0-0.8); MONO % 9.6 % (0.0-5.0); NEUTROPHILS % 66.5 % (36.0-66.0); PLATELET COUNT, AUTOMATED 210 10^3/uL (150-450); RED BLOOD COUNT 4.15 10^6/uL (4.00-5.40)
[2019-05-19] MEDS ORDERED: PRED10TA2 PO (16:09)
[2019-05-19 16:21] LABS: ERYTHROCYTE SEDIMENTATION RATE 11 mm/hr (0-20)
[2019-05-19] MEDS ORDERED: BACT800T5 PO (16:48)
[2019-05-19 16:55] VITALS: BP 137/77
== END 2019-05-19 17:00 | disposition home or self-care (01) ==
LOC: M ED 14:37
DX: S50.812A Abrasion of left forearm, initial encounter (principal); M70.22 Olecranon bursitis, left elbow; X50.3XXA Overexertion from repetitive movements, initial encounter; X50.0XXA Overexertion from strenuous movement or load, initial encounter; Y92.9 Unspecified place or not applicable; Y93.89 Activity, other specified; Y99.9 Unspecified external cause status; E11.9 Type 2 diabetes mellitus without complications; G43.419 Hemiplegic migraine, intractable, without status migrainosus; J44.9 Chronic obstructive pulmonary disease, unspecified; K21.9 Gastro-esophageal reflux disease without esophagitis; F12.90 Cannabis use, unspecified, uncomplicated; F17.200 Nicotine dependence, unspecified, uncomplicated; F43.10 Post-traumatic stress disorder, unspecified; F25.9 Schizoaffective disorder, unspecified; Z79.51 Long term (current) use of inhaled steroids; Z79.82 Long term (current) use of aspirin; Z79.899 Other long term (current) drug therapy; Z87.820 Personal history of traumatic brain injury; Z88.1 Allergy status to other antibiotic agents; Z88.6 Allergy status to analgesic agent; Z88.8 Allergy status to other drugs, medicaments and biological substances

== ENCOUNTER → 2019-06-07 | Outpatient (REF) | payer MEDICARE, MEDICAID ==
[~2019-06-07] MED LIST changes: +BACT800T5 PO; +PRED10TA2 PO
[2019-06-07 14:57] LABS: BASO # 0.1 10^3/uL (0.0-0.2); BASO % 1.8 % (0.0-1.0); EOS # 0.3 10^3/uL (0.0-0.5); HEMATOCRIT 33.6 % (36.0-47.0); HEMOGLOBIN 10.8 g/dl (12.0-15.5); LYMPH # 2.7 10^3/uL (1.5-5.0); LYMPH % 40.3 % (24.0-44.0); MEAN CORPUSCULAR HEMOGLOBIN 30.6 pg (27.0-33.0); MEAN CORPUSCULAR HGB CONC 32.1 g/dl (32.0-36.5); MEAN CORPUSCULAR VOLUME 95.2 fl (80.0-96.0); MONO # 0.4 10^3/uL (0.0-0.8); NEUTROPHILS # 3.2 10^3/uL (1.5-8.5); NEUTROPHILS % 47.8 % (36.0-66.0); PLATELET COUNT, AUTOMATED 461 10^3/uL (150-450); RED BLOOD COUNT 3.53 10^6/uL (4.00-5.40); WHITE BLOOD COUNT 6.7 10^3/uL (4.0-10.0)
[2019-06-07 15:17] LABS: ALBUMIN 3.1 GM/DL (3.2-5.2); ALT/SGPT 25 U/L (12-78); BILIRUBIN,TOTAL 0.3 MG/DL (0.2-1.0); BLOOD UREA NITROGEN 9 MG/DL (7-18); C REACTIVE PROTEIN QUANTITATIV 1.02 MG/DL (0.00-0.30); CALCIUM LEVEL 8.9 MG/DL (8.5-10.1); CARBON DIOXIDE LEVEL 27 MEQ/L (21-32); CHLORIDE LEVEL 106 MEQ/L (98-107); CPK CREATINE PHOSPHOKINASE 70 U/L (26-192); CREATININE FOR GFR 0.92 MG/DL (0.55-1.30); GLOMERULAR FILTRATION RATE > 60.0 (>58); GLUCOSE, FASTING 88 MG/DL (70-100); POTASSIUM SERUM 4.2 MEQ/L (3.5-5.1); SODIUM LEVEL 139 MEQ/L (136-145); TOTAL PROTEIN 7.3 GM/DL (6.4-8.2)
[2019-06-07 16:33] LABS: ERYTHROCYTE SEDIMENTATION RATE 63 mm/hr (0-20)
== END ==
LOC: M LAB REF 14:34
PROVIDERS: ATTEND Internal Medicine Infectious Disease
DX: M00.822 Arthritis due to other bacteria, left elbow (principal)

== ENCOUNTER → 2019-06-10 | Outpatient (REF) | payer MEDICARE, MEDICAID ==
[~2019-06-10] MED LIST changes: +CYCL-707 PO; -CYCL10TA PO
[2019-06-10 17:40] LABS: BASO # 0.1 10^3/uL (0.0-0.2); BASO % 1.6 % (0.0-1.0); EOS # 0.3 10^3/uL (0.0-0.5); EOS % 4.3 % (0.0-3.0); HEMATOCRIT 38.2 % (36.0-47.0); HEMOGLOBIN 12.5 g/dl (12.0-15.5); LYMPH # 3.1 10^3/uL (1.5-5.0); LYMPH % 42.2 % (24.0-44.0); MEAN CORPUSCULAR HEMOGLOBIN 31.3 pg (27.0-33.0); MEAN CORPUSCULAR HGB CONC 32.7 g/dl (32.0-36.5); MEAN CORPUSCULAR VOLUME 95.5 fl (80.0-96.0); MONO # 0.6 10^3/uL (0.0-0.8); MONO % 7.8 % (0.0-5.0); NEUTROPHILS # 3.2 10^3/uL (1.5-8.5); NEUTROPHILS % 43.8 % (36.0-66.0); PLATELET COUNT, AUTOMATED 489 10^3/uL (150-450); WHITE BLOOD COUNT 7.3 10^3/uL (4.0-10.0)
[2019-06-10 18:05] LABS: ALBUMIN 3.5 GM/DL (3.2-5.2); ALT/SGPT 21 U/L (12-78); BILIRUBIN,TOTAL 0.6 MG/DL (0.2-1.0); BLOOD UREA NITROGEN 11 MG/DL (7-18); C REACTIVE PROTEIN QUANTITATIV 0.58 MG/DL (0.00-0.30); CALCIUM LEVEL 9.1 MG/DL (8.5-10.1); CARBON DIOXIDE LEVEL 26 MEQ/L (21-32); CHLORIDE LEVEL 106 MEQ/L (98-107); CPK CREATINE PHOSPHOKINASE 110 U/L (26-192); CREATININE FOR GFR 0.99 MG/DL (0.55-1.30); GLOMERULAR FILTRATION RATE > 60.0 (>58); GLUCOSE, FASTING 78 MG/DL (70-100); POTASSIUM SERUM 4.7 MEQ/L (3.5-5.1); SODIUM LEVEL 137 MEQ/L (136-145); TOTAL PROTEIN 7.6 GM/DL (6.4-8.2)
[2019-06-10 18:51] LABS: ERYTHROCYTE SEDIMENTATION RATE 41 mm/hr (0-20)
== END ==
LOC: M LAB REF 16:21
PROVIDERS: ATTEND Internal Medicine Infectious Disease
DX: M00.822 Arthritis due to other bacteria, left elbow (principal)

== ENCOUNTER → 2019-06-14 | Outpatient (CLI) | payer MEDICARE, MEDICAID ==
[~2019-06-14] MED LIST changes: +DAPT350S IV
== END ==
LOC: M WHC 10:51
PROVIDERS: ATTEND Advanced Practice Midwife
DX: R93.89 Abnormal findings on diagnostic imaging of other specified body structures (principal); Z53.9 Procedure and treatment not carried out, unspecified reason

== ENCOUNTER → 2019-06-14 | Outpatient (REF) | payer MEDICARE, MEDICAID ==
[2019-06-14 17:36] LABS: BASO # 0.1 10^3/uL (0.0-0.2); BASO % 1.7 % (0.0-1.0); EOS # 0.5 10^3/uL (0.0-0.5); EOS % 8.7 % (0.0-3.0); HEMATOCRIT 39.3 % (36.0-47.0); HEMOGLOBIN 12.8 g/dl (12.0-15.5); LYMPH # 2.6 10^3/uL (1.5-5.0); LYMPH % 47.1 % (24.0-44.0); MEAN CORPUSCULAR HEMOGLOBIN 31.1 pg (27.0-33.0); MEAN CORPUSCULAR HGB CONC 32.6 g/dl (32.0-36.5); MEAN CORPUSCULAR VOLUME 95.6 fl (80.0-96.0); MONO # 0.4 10^3/uL (0.0-0.8); MONO % 7.4 % (0.0-5.0); NEUTROPHILS # 1.9 10^3/uL (1.5-8.5); NEUTROPHILS % 34.7 % (36.0-66.0); PLATELET COUNT, AUTOMATED 391 10^3/uL (150-450); RED BLOOD COUNT 4.11 10^6/uL (4.00-5.40); WHITE BLOOD COUNT 5.4 10^3/uL (4.0-10.0)
[2019-06-14 17:56] LABS: ALBUMIN 3.3 GM/DL (3.2-5.2); ALT/SGPT 18 U/L (12-78); BILIRUBIN,TOTAL 0.3 MG/DL (0.2-1.0); BLOOD UREA NITROGEN 9 MG/DL (7-18); CALCIUM LEVEL 8.6 MG/DL (8.5-10.1); CARBON DIOXIDE LEVEL 26 MEQ/L (21-32); CHLORIDE LEVEL 108 MEQ/L (98-107); CPK CREATINE PHOSPHOKINASE 102 U/L (26-192); CREATININE FOR GFR 1.01 MG/DL (0.55-1.30); GLOMERULAR FILTRATION RATE > 60.0 (>58); GLUCOSE, FASTING 107 MG/DL (70-100); POTASSIUM SERUM 3.9 MEQ/L (3.5-5.1); SODIUM LEVEL 139 MEQ/L (136-145); TOTAL PROTEIN 7.3 GM/DL (6.4-8.2)
[2019-06-14 19:54] LABS: ERYTHROCYTE SEDIMENTATION RATE 37 mm/hr (0-20)
== END ==
LOC: M SHH 16:19
PROVIDERS: ATTEND Internal Medicine Infectious Disease
DX: M00.822 Arthritis due to other bacteria, left elbow (principal)

== ENCOUNTER 2019-06-17 13:26 | Emergency (ER) | payer MEDICARE, MEDICAID ==
[~2019-06-17] VITALS: Ht 162.6 cm; Wt 62.7 kg
[~2019-06-17 13:26] MED LIST changes: -DAPT350S IV
[2019-06-17 14:00] VITALS: BP 146/98
[2019-06-17] MEDS ORDERED: DAPT350S IV (14:12)
== END 2019-06-17 14:16 | disposition home or self-care (01) ==
LOC: M ED 13:26
DX: Z45.89 Encounter for adjustment and management of other implanted devices (principal); A49.02 Methicillin resistant Staphylococcus aureus infection, unspecified site; Z79.2 Long term (current) use of antibiotics; F17.200 Nicotine dependence, unspecified, uncomplicated; Z88.1 Allergy status to other antibiotic agents; Z88.8 Allergy status to other drugs, medicaments and biological substances; Z79.899 Other long term (current) drug therapy; Z79.82 Long term (current) use of aspirin; Z79.51 Long term (current) use of inhaled steroids

== ENCOUNTER → 2019-06-21 | Outpatient (REF) | payer MEDICARE ==
[~2019-06-21] MED LIST changes: +DAPT350S IV
[2019-06-21 13:31] LABS: BASO # 0.1 10^3/uL (0.0-0.2); BASO % 1.6 % (0.0-1.0); EOS # 0.4 10^3/uL (0.0-0.5); EOS % 6.9 % (0.0-3.0); HEMATOCRIT 39.8 % (36.0-47.0); HEMOGLOBIN 13.2 g/dl (12.0-15.5); LYMPH # 2.6 10^3/uL (1.5-5.0); LYMPH % 45.5 % (24.0-44.0); MEAN CORPUSCULAR HEMOGLOBIN 31.4 pg (27.0-33.0); MEAN CORPUSCULAR HGB CONC 33.2 g/dl (32.0-36.5); MEAN CORPUSCULAR VOLUME 94.5 fl (80.0-96.0); MONO # 0.4 10^3/uL (0.0-0.8); MONO % 6.8 % (0.0-5.0); NEUTROPHILS # 2.3 10^3/uL (1.5-8.5); PLATELET COUNT, AUTOMATED 258 10^3/uL (150-450); RED BLOOD COUNT 4.21 10^6/uL (4.00-5.40); WHITE BLOOD COUNT 5.8 10^3/uL (4.0-10.0)
[2019-06-21 13:49] LABS: ALBUMIN 3.4 GM/DL (3.2-5.2); ALT/SGPT 17 U/L (12-78); BILIRUBIN,TOTAL 0.4 MG/DL (0.2-1.0); BLOOD UREA NITROGEN 9 MG/DL (7-18); C REACTIVE PROTEIN QUANTITATIV < 0.30 MG/DL (0.00-0.30); CALCIUM LEVEL 8.7 MG/DL (8.5-10.1); CARBON DIOXIDE LEVEL 25 MEQ/L (21-32); CHLORIDE LEVEL 109 MEQ/L (98-107); CPK CREATINE PHOSPHOKINASE 51 U/L (26-192); CREATININE FOR GFR 0.89 MG/DL (0.55-1.30); GLOMERULAR FILTRATION RATE > 60.0 (>58); GLUCOSE, FASTING 90 MG/DL (70-100); POTASSIUM SERUM 4.3 MEQ/L (3.5-5.1); SODIUM LEVEL 139 MEQ/L (136-145)
[2019-06-21 14:01] LABS: ERYTHROCYTE SEDIMENTATION RATE 17 mm/hr (0-20)
== END ==
LOC: M LAB REF 12:42
PROVIDERS: ATTEND Internal Medicine Infectious Disease
DX: M00.822 Arthritis due to other bacteria, left elbow (principal)

== ENCOUNTER → 2019-06-28 | Outpatient (REF) | payer MEDICARE ==
[2019-06-28 13:40] LABS: BASO # 0.1 10^3/uL (0.0-0.2); BASO % 1.5 % (0.0-1.0); EOS # 0.6 10^3/uL (0.0-0.5); EOS % 9.6 % (0.0-3.0); HEMATOCRIT 37.4 % (36.0-47.0); HEMOGLOBIN 12.3 g/dl (12.0-15.5); LYMPH # 2.7 10^3/uL (1.5-5.0); LYMPH % 43.9 % (24.0-44.0); MEAN CORPUSCULAR HEMOGLOBIN 31.4 pg (27.0-33.0); MEAN CORPUSCULAR HGB CONC 32.9 g/dl (32.0-36.5); MEAN CORPUSCULAR VOLUME 95.4 fl (80.0-96.0); MONO # 0.5 10^3/uL (0.0-0.8); MONO % 7.8 % (0.0-5.0); NEUTROPHILS # 2.3 10^3/uL (1.5-8.5); NEUTROPHILS % 36.9 % (36.0-66.0); PLATELET COUNT, AUTOMATED 184 10^3/uL (150-450); RED BLOOD COUNT 3.92 10^6/uL (4.00-5.40); WHITE BLOOD COUNT 6.1 10^3/uL (4.0-10.0)
[2019-06-28 13:46] LABS: ALBUMIN 3.1 GM/DL (3.2-5.2); ALT/SGPT 18 U/L (12-78); BILIRUBIN,TOTAL 0.2 MG/DL (0.2-1.0); BLOOD UREA NITROGEN 11 MG/DL (7-18); CALCIUM LEVEL 8.6 MG/DL (8.5-10.1); CARBON DIOXIDE LEVEL 25 MEQ/L (21-32); CHLORIDE LEVEL 110 MEQ/L (98-107); CPK CREATINE PHOSPHOKINASE 62 U/L (26-192); CREATININE FOR GFR 0.94 MG/DL (0.55-1.30); GLOMERULAR FILTRATION RATE > 60.0 (>58); GLUCOSE, FASTING 121 MG/DL (70-100); POTASSIUM SERUM 3.9 MEQ/L (3.5-5.1); SODIUM LEVEL 142 MEQ/L (136-145); TOTAL PROTEIN 6.2 GM/DL (6.4-8.2)
[2019-06-28 14:11] LABS: ERYTHROCYTE SEDIMENTATION RATE 9 mm/hr (0-20)
== END ==
LOC: M LAB REF 13:05
PROVIDERS: ATTEND Internal Medicine Infectious Disease
DX: M00.822 Arthritis due to other bacteria, left elbow (principal)

== ENCOUNTER → 2019-07-05 | Outpatient (REF) | payer MEDICARE ==
[2019-07-05 17:15] LABS: BASO # 0.1 10^3/uL (0.0-0.2); BASO % 1.8 % (0.0-1.0); EOS # 0.6 10^3/uL (0.0-0.5); EOS % 10.3 % (0.0-3.0); HEMATOCRIT 39.7 % (36.0-47.0); HEMOGLOBIN 13.4 g/dl (12.0-15.5); LYMPH # 2.7 10^3/uL (1.5-5.0); LYMPH % 48.1 % (24.0-44.0); MEAN CORPUSCULAR HEMOGLOBIN 31.5 pg (27.0-33.0); MEAN CORPUSCULAR HGB CONC 33.8 g/dl (32.0-36.5); MEAN CORPUSCULAR VOLUME 93.4 fl (80.0-96.0); MONO # 0.5 10^3/uL (0.0-0.8); MONO % 8.2 % (0.0-5.0); NEUTROPHILS # 1.8 10^3/uL (1.5-8.5); NEUTROPHILS % 31.4 % (36.0-66.0); PLATELET COUNT, AUTOMATED 275 10^3/uL (150-450); RED BLOOD COUNT 4.25 10^6/uL (4.00-5.40); WHITE BLOOD COUNT 5.6 10^3/uL (4.0-10.0)
[2019-07-05 17:45] LABS: ALBUMIN 3.5 GM/DL (3.2-5.2); ALT/SGPT 31 U/L (12-78); BILIRUBIN,TOTAL 0.3 MG/DL (0.2-1.0); BLOOD UREA NITROGEN 13 MG/DL (7-18); C REACTIVE PROTEIN QUANTITATIV < 0.30 MG/DL (0.00-0.30); CALCIUM LEVEL 8.9 MG/DL (8.5-10.1); CARBON DIOXIDE LEVEL 27 MEQ/L (21-32); CHLORIDE LEVEL 106 MEQ/L (98-107); CPK CREATINE PHOSPHOKINASE 125 U/L (26-192); CREATININE FOR GFR 0.92 MG/DL (0.55-1.30); GLOMERULAR FILTRATION RATE > 60.0 (>58); GLUCOSE, FASTING 93 MG/DL (70-100); POTASSIUM SERUM 3.9 MEQ/L (3.5-5.1); SODIUM LEVEL 139 MEQ/L (136-145); TOTAL PROTEIN 6.8 GM/DL (6.4-8.2)
[2019-07-05 18:03] LABS: ERYTHROCYTE SEDIMENTATION RATE 10 mm/hr (0-20)
== END ==
LOC: M LAB REF 16:17
PROVIDERS: ATTEND Internal Medicine Infectious Disease
DX: M00.822 Arthritis due to other bacteria, left elbow (principal)

== ENCOUNTER → 2019-07-16 | Outpatient (REF) | payer MEDICARE, MEDICAID ==
[~2019-07-16] MED LIST changes: +METO1TAB32 OR
[2019-07-16 13:18] LABS: BASO # 0.1 10^3/uL (0.0-0.2); BASO % 1.4 % (0.0-1.0); EOS # 0.2 10^3/uL (0.0-0.5); EOS % 4.2 % (0.0-3.0); HEMATOCRIT 41.6 % (36.0-47.0); HEMOGLOBIN 13.9 g/dl (12.0-15.5); LYMPH # 1.6 10^3/uL (1.5-5.0); LYMPH % 36.8 % (24.0-44.0); MEAN CORPUSCULAR HEMOGLOBIN 31.7 pg (27.0-33.0); MEAN CORPUSCULAR HGB CONC 33.4 g/dl (32.0-36.5); MEAN CORPUSCULAR VOLUME 94.8 fl (80.0-96.0); MONO # 0.3 10^3/uL (0.0-0.8); MONO % 7.3 % (0.0-5.0); NEUTROPHILS # 2.1 10^3/uL (1.5-8.5); NEUTROPHILS % 50.1 % (36.0-66.0); PLATELET COUNT, AUTOMATED 282 10^3/uL (150-450); RED BLOOD COUNT 4.39 10^6/uL (4.00-5.40); WHITE BLOOD COUNT 4.2 10^3/uL (4.0-10.0)
[2019-07-16 13:52] LABS: ALBUMIN 3.9 GM/DL (3.2-5.2); ALT/SGPT 21 U/L (12-78); BILIRUBIN,TOTAL 0.2 MG/DL (0.2-1.0); BLOOD UREA NITROGEN 14 MG/DL (7-18); CALCIUM LEVEL 9.2 MG/DL (8.5-10.1); CARBON DIOXIDE LEVEL 25 MEQ/L (21-32); CHLORIDE LEVEL 108 MEQ/L (98-107); CHOLESTEROL LEVEL 268 MG/DL (<200); CREATININE FOR GFR 1.03 MG/DL (0.55-1.30); GLOMERULAR FILTRATION RATE > 60.0 (>58); GLUCOSE, FASTING 103 MG/DL (70-100); HDL CHOLESTEROL 50 MG/DL (>40); LDL CHOLESTEROL 195 MG/DL (<100); NON-HDL-C 218 MG/DL; POTASSIUM SERUM 3.7 MEQ/L (3.5-5.1); SODIUM LEVEL 139 MEQ/L (136-145); TOTAL PROTEIN 7.3 GM/DL (6.4-8.2); TRIGLYCERIDES LEVEL 115 MG/DL (<150)
[2019-07-16 16:02] LABS: HEMOGLOBIN A1c 5.7 %
== END ==
LOC: M LAB REF 12:33
PROVIDERS: ATTEND Nurse Practitioner Family
DX: R73.03 Prediabetes (principal); R06.00 Dyspnea, unspecified; Z74.09 Other reduced mobility; F41.8 Other specified anxiety disorders; E78.5 Hyperlipidemia, unspecified; M54.9 Dorsalgia, unspecified; Z13.9 Encounter for screening, unspecified

== ENCOUNTER 2019-07-22 09:41 | Emergency (ER) | payer MEDICARE, MEDICAID ==
[~2019-07-22] VITALS: Ht 162.6 cm; Wt 66.6 kg
[~2019-07-22 09:41] MED LIST changes: -METO1TAB32 OR
[2019-07-22] MEDS ORDERED: METO1TAB32 OR (10:05)
--- NOTE | 2019-07-22 10:09 | REP ---
Clinical: Acute chest pain . Comparison: 04/19/2019 . Findings: The mediastinum and cardiac silhouette are stable and within normal limits for portable technique. The lung luther are clear without acute consolidation, effusion, or pneumothorax. Skeletal structures are intact. Impression: No acute cardiopulmonary process appreciated. Electronically Signed by Henrik Finnegan MD 07/22/2019 10:00 A
[2019-07-22 10:23] LABS: BASO # 0.1 10^3/uL (0.0-0.2); BASO % 1.2 % (0.0-1.0); EOS # 0.5 10^3/uL (0.0-0.5); EOS % 8.7 % (0.0-3.0); HEMATOCRIT 38.4 % (36.0-47.0); HEMOGLOBIN 12.8 g/dl (12.0-15.5); LYMPH # 2.3 10^3/uL (1.5-5.0); LYMPH % 40.5 % (24.0-44.0); MEAN CORPUSCULAR HEMOGLOBIN 30.8 pg (27.0-33.0); MEAN CORPUSCULAR HGB CONC 33.3 g/dl (32.0-36.5); MEAN CORPUSCULAR VOLUME 92.5 fl (80.0-96.0); MONO # 0.4 10^3/uL (0.0-0.8); MONO % 7.1 % (0.0-5.0); NEUTROPHILS # 2.4 10^3/uL (1.5-8.5); NEUTROPHILS % 42.3 % (36.0-66.0); PLATELET COUNT, AUTOMATED 230 10^3/uL (150-450); RED BLOOD COUNT 4.15 10^6/uL (4.00-5.40); WHITE BLOOD COUNT 5.7 10^3/uL (4.0-10.0)
[2019-07-22 10:41] LABS: INR 1.02; PROTHROMBIN TIME 13.1 SECONDS (11.8-14.0)
[2019-07-22] MEDS: GI COCKTAIL 50ML BTL(HYOSCYAMINE/MAALOX/LIDOCAINE VISCOUS)(1:3:1) PO ONE ×2 (10:47→10:49)
[2019-07-22 10:55] LABS: ALBUMIN 3.5 GM/DL (3.2-5.2); ALT/SGPT 20 U/L (12-78); BILIRUBIN,DIRECT 0.1 MG/DL (0.0-0.2); BILIRUBIN,TOTAL 0.3 MG/DL (0.2-1.0); BLOOD UREA NITROGEN 18 MG/DL (7-18); CALCIUM LEVEL 8.3 MG/DL (8.5-10.1); CARBON DIOXIDE LEVEL 24 MEQ/L (21-32); CHLORIDE LEVEL 111 MEQ/L (98-107); CK-MB VALUE MASS 1.1 NG/ML (<3.6); CPK CREATINE PHOSPHOKINASE 65 U/L (26-192); GLOMERULAR FILTRATION RATE 58.3 (>58); GLUCOSE, FASTING 92 MG/DL (70-100); LIPASE 77 U/L (73-393); MB/CK RELATIVE INDEX 1.69 (< OR =4); POTASSIUM SERUM 4.2 MEQ/L (3.5-5.1); SODIUM LEVEL 140 MEQ/L (136-145); TOTAL PROTEIN 6.7 GM/DL (6.4-8.2); TROPONIN I < 0.02 NG/ML (< 0.10)
--- NOTE | 2019-07-22 13:38 | REPVR ---
PROCEDURE INFORMATION: Exam: MR Head Without Contrast Exam date and time: 07/22/2019 12:48 PM Age: 43 years old Clinical indication: Weakness, extremity; Patient HX: Left sided weakness, and tingling, nki TECHNIQUE: Imaging protocol: MR of the head without contrast. COMPARISON: MRI-Brain without Contrast 01/23/2018 8:29 PM FINDINGS: Brain: No acute infarct identified on the diffusion-weighted imaging. No parenchymal hemorrhage. A few punctate foci of increased signal intensity in the subcortical white matter on the T2 weighted imaging, nonspecific, likely represents trace chronic small vessel ischemic change; probably unchanged, some poorly visualized previously due to motion artifacts. No significant deep white matter disease. 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 Ventricles: Stable. No ventriculomegaly. Size asymmetry of the lateral ventricles is likely physiologic. Bones/joints: Unremarkable. Soft tissues: Unremarkable. Sinuses: Retention cyst or polyp in the right maxillary sinus. Trace ethmoid mucosal thickening. Mastoid air cells: Normal as visualized. No mastoid effusion. Lymph nodes: There is a mildly prominent left jugulodigastric lymph node measuring 1.7 x 0.9 cm, probably reactive. Orbits: Unremarkable. IMPRESSION: No evidence of acute infarct. Electronically signed by: Deana Jaffe On 07/22/2019 13:38:01 PM
--- NOTE | 2019-07-22 13:44 | REPVR ---
PROCEDURE INFORMATION: Exam: MR Angiogram Head Without Contrast, Arteries Exam date and time: 07/22/2019 12:48 PM Age: 43 years old Clinical indication: Patient HX: Left sided weakness, and tingling, nki; Additional info: L-sided facial numbness TECHNIQUE: Imaging protocol: MR angiogram head without contrast. Exam focused on the arteries. 3D rendering: MIP and/or 3D reconstructed images were created by the technologist. COMPARISON: MRA BRAIN W/O CONTRAST 01/23/2018 8:29 PM FINDINGS: Anterior cerebral arteries: The anterior cerebral arteries are patent. The right A1 demonstrates a fenestration. There is a tiny 1.7 mm outpouching at the junction of the left A1 and A-comm, image 85 series 301, stable. There may be a tiny right A-comm fenestration. Right internal carotid artery: Intracranial segment is patent with no significant stenosis. No aneurysm. Right middle cerebral artery: No occlusion or significant stenosis. No aneurysm. Right posterior cerebral artery: No occlusion or significant stenosis. No aneurysm. Right vertebral artery: No occlusion or significant stenosis. No aneurysm. Left internal carotid artery: Intracranial segment is patent with no significant stenosis. No aneurysm. Left middle cerebral artery: No occlusion or significant stenosis. No aneurysm. Left posterior cerebral artery: No occlusion or significant stenosis. No aneurysm. Left vertebral artery: No occlusion or significant stenosis. No aneurysm. Basilar artery: The basilar artery is patent. There is a proximal fenestration. No aneurysm. IMPRESSION: No major proximal vessel branch occlusion seen. Tiny anterior communicating artery aneurysm, as before. Electronically signed by: Deana Jaffe On 07/22/2019 13:44:20 PM
[2019-07-22 14:30] VITALS: BP 95/59
--- NOTE | 2019-07-22 15:19 | ECGEPIP ---
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
== END 2019-07-22 14:40 | disposition home or self-care (01) ==
LOC: M ED 09:41
DX: K21.9 Gastro-esophageal reflux disease without esophagitis (principal); R14.0 Abdominal distension (gaseous); F41.9 Anxiety disorder, unspecified; R20.2 Paresthesia of skin; R20.0 Anesthesia of skin; I67.82 Cerebral ischemia; M54.2 Cervicalgia; G89.29 Other chronic pain; F43.10 Post-traumatic stress disorder, unspecified; F25.9 Schizoaffective disorder, unspecified; Z86.73 Personal history of transient ischemic attack (TIA), and cerebral infarction without residual deficits; D50.9 Iron deficiency anemia, unspecified; G43.409 Hemiplegic migraine, not intractable, without status migrainosus; F17.210 Nicotine dependence, cigarettes, uncomplicated; Z88.1 Allergy status to other antibiotic agents; Z88.8 Allergy status to other drugs, medicaments and biological substances; Z79.899 Other long term (current) drug therapy; Z79.82 Long term (current) use of aspirin

== ENCOUNTER 2019-08-25 11:48 | Emergency (ER) | payer MEDICARE, MEDICAID ==
[~2019-08-25] VITALS: Ht 162.6 cm; Wt 68.2 kg
[~2019-08-25 11:48] MED LIST changes: +METO1TAB32 OR
[2019-08-25] MEDS ORDERED: SIME180C PO (12:18)
[2019-08-25] MEDS ORDERED: CYCL-707 PO (12:18)
[2019-08-25 14:59] VITALS: BP 92/51
--- NOTE | 2019-08-26 07:57 | ECGEPIP ---
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
--- NOTE | 2019-08-26 07:57 | ECGEPIP ---
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
== END 2019-08-25 15:51 | disposition home or self-care (01) ==
LOC: EDBD 11:48 → M ED 11:48
DX: F41.1 Generalized anxiety disorder (principal); G43.909 Migraine, unspecified, not intractable, without status migrainosus; G47.33 Obstructive sleep apnea (adult) (pediatric); F25.9 Schizoaffective disorder, unspecified; F43.10 Post-traumatic stress disorder, unspecified; Z79.899 Other long term (current) drug therapy; Z79.82 Long term (current) use of aspirin; Z88.1 Allergy status to other antibiotic agents; Z88.8 Allergy status to other drugs, medicaments and biological substances; F17.210 Nicotine dependence, cigarettes, uncomplicated

== ENCOUNTER → 2019-09-13 | Outpatient (CLI) | payer MEDICARE, MEDICAID ==
[~2019-09-13] MED LIST changes: +ASPI81TA86 PO; +DICY10CA13 PO; +EXCETAB33 PO; -METO1TAB32 OR; +METO1TAB32 PO; +SIME180C PO
== END ==
LOC: M LABSMTC 09:39
PROVIDERS: ATTEND Internal Medicine Cardiovascular Disease
DX: Z11.59 Encounter for screening for other viral diseases (principal)
CPT/HCPCS: C9803; U0003

== ENCOUNTER → 2019-10-17 | Outpatient (REF) | payer MEDICARE, MEDICAID ==
[2019-10-17 15:45] LABS: ALBUMIN 3.7 GM/DL (3.2-5.2); ALT/SGPT 20 U/L (12-78); BILIRUBIN,TOTAL 0.3 MG/DL (0.2-1.0); BLOOD UREA NITROGEN 15 MG/DL (7-18); CALCIUM LEVEL 8.9 MG/DL (8.5-10.1); CARBON DIOXIDE LEVEL 25 MEQ/L (21-32); CHLORIDE LEVEL 113 MEQ/L (98-107); CHOLESTEROL LEVEL 184 MG/DL (<200); CHOLESTEROL RISK RATIO 5.111 (<5); CREATININE FOR GFR 1.02 MG/DL (0.55-1.30); GLOMERULAR FILTRATION RATE > 60.0 (>58); GLUCOSE, FASTING 96 MG/DL (70-100); HDL CHOLESTEROL 36 MG/DL (>40); LDL CHOLESTEROL 111 MG/DL (<100); NON-HDL-C 148 MG/DL; POTASSIUM SERUM 4.4 MEQ/L (3.5-5.1); SODIUM LEVEL 140 MEQ/L (136-145); TOTAL PROTEIN 6.6 GM/DL (6.4-8.2); TRIGLYCERIDES LEVEL 187 MG/DL (<150)
[2019-10-17 15:48] LABS: BASO # 0.1 10^3/uL (0.0-0.2); BASO % 1.1 % (0.0-1.0); EOS # 0.4 10^3/uL (0.0-0.5); EOS % 6.7 % (0.0-3.0); HEMATOCRIT 41.1 % (36.0-47.0); HEMOGLOBIN 13.6 g/dl (12.0-15.5); LYMPH # 2.4 10^3/uL (1.5-5.0); LYMPH % 38.1 % (24.0-44.0); MEAN CORPUSCULAR HEMOGLOBIN 31.2 pg (27.0-33.0); MEAN CORPUSCULAR HGB CONC 33.1 g/dl (32.0-36.5); MEAN CORPUSCULAR VOLUME 94.3 fl (80.0-96.0); MONO # 0.6 10^3/uL (0.0-0.8); MONO % 9.1 % (0.0-5.0); NEUTROPHILS # 2.8 10^3/uL (1.5-8.5); NEUTROPHILS % 44.8 % (36.0-66.0); PLATELET COUNT, AUTOMATED 263 10^3/uL (150-450); RED BLOOD COUNT 4.36 10^6/uL (4.00-5.40); WHITE BLOOD COUNT 6.3 10^3/uL (4.0-10.0)
[2019-10-17 17:05] LABS: HEMOGLOBIN A1c 5.8 %
== END ==
LOC: M LAB REF 08:10
PROVIDERS: ATTEND Nurse Practitioner Family
DX: K21.9 Gastro-esophageal reflux disease without esophagitis (principal); R00.2 Palpitations; R07.9 Chest pain, unspecified; F17.200 Nicotine dependence, unspecified, uncomplicated; R73.03 Prediabetes; E78.5 Hyperlipidemia, unspecified; Z13.9 Encounter for screening, unspecified

== ENCOUNTER → 2019-10-18 | Outpatient (REF) | payer MEDICARE, MEDICAID ==
[2019-10-18 13:47] LABS: APPEARANCE, URINE HAZY (CLEAR); BACTERIA, URINE AUTO NEGATIVE (NEGATIVE); BILIRUBIN, URINE AUTO NEGATIVE (NEGATIVE); BLOOD, URINE BLOOD NEGATIVE (NEGATIVE); COLOR, URINE YELLOW (YELLOW); GLUCOSE, URINE (UA) AUTO NEGATIVE (NEGATIVE); KETONE, URINE AUTO NEGATIVE (NEGATIVE); LEUKOCYTE ESTERASE, URINE AUTO NEGATIVE (NEGATIVE); NITRITE, URINE AUTO NEGATIVE (NEGATIVE); PROTEIN, URINE AUTO NEGATIVE (NEGATIVE); RBC, URINE AUTO 0 /HPF (0-3); SPECIFIC GRAVITY URINE AUTO 1.005 (1.002-1.035); SQUAMOUS EPITHELIAL CELL UR AU 2 /HPF (0-6); UROBILINOGEN, URINE AUTO 0.2 mg/dL (0.0-2.0); WBC, URINE AUTO 0 /HPF (0-3)
== END ==
LOC: M LAB REF 11:41
PROVIDERS: ATTEND Physician Assistant Medical
DX: N39.0 Urinary tract infection, site not specified (principal)

== ENCOUNTER 2019-11-25 11:34 | Emergency (ER) | payer MEDICARE, MEDICAID ==
[~2019-11-25] VITALS: Ht 162.6 cm; Wt 71.8 kg
[~2019-11-25 11:34] MED LIST changes: -ASPI81TA86 PO; -DICY10CA13 PO; -EXCETAB33 PO
[2019-11-25] MEDS ORDERED: EXCETAB33 PO (12:08)
[2019-11-25] MEDS ORDERED: DICY10CA13 PO (12:46)
[2019-11-25 13:23] VITALS: BP 110/77
[2019-12-09] MEDS ORDERED: ASPI81TA86 PO (15:04)
== END 2019-11-25 13:34 | disposition home or self-care (01) ==
LOC: M ED 11:34 → EDBD 11:34 → M ED 13:34
DX: R10.9 Unspecified abdominal pain (principal); G43.909 Migraine, unspecified, not intractable, without status migrainosus; K21.9 Gastro-esophageal reflux disease without esophagitis; G47.30 Sleep apnea, unspecified; J44.9 Chronic obstructive pulmonary disease, unspecified; D64.9 Anemia, unspecified; F41.9 Anxiety disorder, unspecified; F33.9 Major depressive disorder, recurrent, unspecified; F25.9 Schizoaffective disorder, unspecified; F43.10 Post-traumatic stress disorder, unspecified; F12.10 Cannabis abuse, uncomplicated; F17.200 Nicotine dependence, unspecified, uncomplicated; Z88.1 Allergy status to other antibiotic agents; Z88.8 Allergy status to other drugs, medicaments and biological substances; Z79.899 Other long term (current) drug therapy; Z79.51 Long term (current) use of inhaled steroids

== ENCOUNTER → 2019-12-11 | Outpatient (CLI) | payer MEDICARE, MEDICAID ==
[~2019-12-11] MED LIST changes: +ASPI81TA86 PO; +DICY10CA13 PO; +EXCETAB33 PO
== END ==
LOC: M LABSMTC 09:16
PROVIDERS: ATTEND Anesthesiology
DX: Z01.812 Encounter for preprocedural laboratory examination (principal); Z20.828 Contact with and (suspected) exposure to other viral communicable diseases
CPT/HCPCS: C9803; U0003

== ENCOUNTER 2019-12-16 11:35 | Day surgery (SDC) | payer MEDICARE, MEDICAID ==
[~2019-12-16] VITALS: Ht 162.6 cm; Wt 70.8 kg
[~2019-12-16 11:35] MED LIST changes: +NS 1,000 ML IV ONE
[2019-12-16] MEDS ORDERED: LEVALBUTEROL 1.25 MG/0.5 ML CONCENTRATE NEB As Ordered ONE (12:08)
[2019-12-16] MEDS ORDERED: LEVALBUTEROL 1.25 MG/0.5 ML CONCENTRATE NEB NEB ONE (12:30)
--- NOTE | 2019-12-16 13:04 | ROOR ---
Patient Name: Christal Gómez Procedure Date: 12/16/2019 12:42 PM Date of : 1975 Age: 43 Room: [facility] Gender: Female Note Status: Finalized Procedure: Upper GI endoscopy Indications: Dysphagia, Heartburn Providers: Joe Correa MD Referring MD: Blanco COMBS MD Requesting Provider: Medicines: Monitored Anesthesia Care Complications: No immediate complications. Procedure: Pre-Anesthesia Assessment: - Prior to the procedure, a History and Physical was performed, and patient medications and allergies were reviewed. The patient is competent. The risks and benefits of the procedure and the sedation options and risks were discussed with the patient. All questions were answered and informed consent was obtained. Patient identification and proposed procedure were verified by the physician, the nurse and the anesthesiologist in the procedure room. Mental Status Examination: alert and oriented. Airway Examination: normal oropharyngeal airway and neck mobility. Respiratory Examination: clear to auscultation. CV Examination: normal. Prophylactic Antibiotics: The patient does not require prophylactic antibiotics. Prior Anticoagulants: The patient has taken no previous anticoagulant or antiplatelet agents. ASA Grade Assessment: III - A patient with severe systemic disease. After reviewing the risks and benefits, the patient was deemed in satisfactory condition to undergo the procedure. The anesthesia plan was to use monitored anesthesia care (MAC). Immediately prior to administration of medications, the patient was re-assessed for adequacy to receive sedatives. The heart rate, respiratory rate, oxygen saturations, blood pressure, adequacy of pulmonary ventilation, and response to care were monitored throughout the procedure. The physical status of the patient was re-assessed after the procedure. The Endoscope was introduced through the mouth, and advanced to the second part of duodenum. The upper GI endoscopy was accomplished without difficulty. The patient tolerated the procedure well. Findings: A small hiatal hernia was present. Normal mucosa was found in the entire esophagus. Biopsies were obtained from the proximal and distal esophagus with cold forceps for histology of suspected eosinophilic esophagitis. Verification of patient identification for the specimen was done by the physician and nurse using the patient's name, date and medical record number. The Z-line was regular and was found 39 cm from the incisors. Scattered mild inflammation characterized by erythema and granularity was found in the gastric antrum. Biopsies were taken with a cold forceps for Helicobacter pylori testing. The duodenal bulb and second portion of the duodenum were normal. Impression: - Small hiatal hernia. - Normal mucosa was found in the entire esophagus. Biopsied. - Z-line regular, 39 cm from the incisors. - Gastritis. Biopsied. - Normal duodenal bulb and second portion of the duodenum. Recommendation: - Patient has a contact number available for emergencies. The signs and symptoms of potential delayed complications were discussed with the patient. Return to normal activities tomorrow. Written discharge instructions were provided to the patient. - High fiber diet. - Continue present medications. - Await pathology results. - Follow an antireflux regimen. - Telephone GI clinic for pathology results in 2 weeks. - Return to primary care physician. Joe Correa MD Joe Correa MD 12/16/2019 1:04:31 PM Electronically signed by Joe Correa MD Number of Addenda: 0 Note Initiated On: 12/16/2019 12:42 PM Estimated Blood Loss: Estimated blood loss: none.
[2019-12-16] MEDS ORDERED: LIDOCAINE 2% 100MG/5ML SDV (FOR ANES.) As Ordered ONE (13:40)
[2019-12-16] MEDS ORDERED: propofoL 200 MG/20 ML VIAL As Ordered ONE (13:40)
--- NOTE | 2019-12-16 13:45 | ROOR ---
Patient Name: Christal Gómez Procedure Date: 12/16/2019 12:43 PM Date of : 1975 Age: 43 Room: [facility] Gender: Female Note Status: Finalized Procedure: Colonoscopy Indications: Screening for colorectal malignant neoplasm Providers: Joe Correa MD Referring MD: Blanco COMBS MD Requesting Provider: Medicines: Monitored Anesthesia Care Complications: No immediate complications. Procedure: Pre-Anesthesia Assessment: - Prior to the procedure, a History and Physical was performed, and patient medications and allergies were reviewed. The patient is competent. The risks and benefits of the procedure and the sedation options and risks were discussed with the patient. All questions were answered and informed consent was obtained. Patient identification and proposed procedure were verified by the physician, the nurse and the anesthesiologist in the procedure room. Mental Status Examination: alert and oriented. Airway Examination: normal oropharyngeal airway and neck mobility. Respiratory Examination: clear to auscultation. CV Examination: normal. Prophylactic Antibiotics: The patient does not require prophylactic antibiotics. Prior Anticoagulants: The patient has taken no previous anticoagulant or antiplatelet agents. ASA Grade Assessment: II - A patient with mild systemic disease. After reviewing the risks and benefits, the patient was deemed in satisfactory condition to undergo the procedure. The anesthesia plan was to use monitored anesthesia care (MAC). Immediately prior to administration of medications, the patient was re-assessed for adequacy to receive sedatives. The heart rate, respiratory rate, oxygen saturations, blood pressure, adequacy of pulmonary ventilation, and response to care were monitored throughout the procedure. The physical status of the patient was re-assessed after the procedure. The Colonoscope was introduced through the anus and advanced to the terminal ileum, with identification of the appendiceal orifice and IC valve. The colonoscopy was performed without difficulty. The patient tolerated the procedure well. The quality of the bowel preparation was good. The terminal ileum, ileocecal valve, appendiceal orifice, and rectum were photographed. Scope insertion time was 3 minutes. Scope withdrawal time was 9 minutes. The total duration of the procedure was 12 minutes. Findings: The perianal and digital rectal examinations were normal. The terminal ileum appeared normal. A 15 mm polyp was found in the hepatic flexure. The polyp was sessile. The polyp was removed with a hot snare. Resection and retrieval were complete. Verification of patient identification for the specimen was done by the physician and nurse using the patient's name, date and medical record number. Estimated blood loss was minimal. Extensive amounts of semi-liquid semi-solid stool was found from sigmoid to cecum, interfering with visualization. Lavage of the area was performed using a large amount of sterile water, resulting in incomplete clearance with continued poor visualization. Non-bleeding external and internal hemorrhoids were found during retroflexion. The hemorrhoids were medium-sized. Impression: - The examined portion of the ileum was normal. - One 15 mm polyp at the hepatic flexure, removed with a hot snare. Resected and retrieved. - Stool from sigmoid to cecum. - Non-bleeding external and internal hemorrhoids. Recommendation: - Patient has a contact number available for emergencies. The signs and symptoms of potential delayed complications were discussed with the patient. Return to normal activities tomorrow. Written discharge instructions were provided to the patient. - High fiber diet. - Continue present medications. - Await pathology results. - Repeat colonoscopy in 3 months because the bowel preparation was poor and for surveillance based on pathology results. - Telephone GI clinic for pathology results in 2 weeks. - Telephone GI clinic to schedule appointment in [facility] (address [address], [address], [place], [facility]) in 4 -- 6 weeks. Please call GI clinic @ [phone] for apppointment date and time. - Return to primary care physician. Joe Correa MD Joe Correa MD 12/16/2019 1:44:23 PM Electronically signed by Joe Correa MD Number of Addenda: 0 Note Initiated On: 12/16/2019 12:43 PM Estimated Blood Loss: Estimated blood loss was minimal.
[2019-12-16 13:59] VITALS: BP 118/77
== END 2019-12-16 14:02 | disposition home or self-care (01) ==
LOC: M OPP 11:35
PROVIDERS: ATTEND Internal Medicine Gastroenterology
DX: Z12.11 Encounter for screening for malignant neoplasm of colon (principal); D12.3 Benign neoplasm of transverse colon; K64.8 Other hemorrhoids; R13.10 Dysphagia, unspecified; R12 Heartburn; K44.9 Diaphragmatic hernia without obstruction or gangrene; K29.70 Gastritis, unspecified, without bleeding

== ENCOUNTER → 2019-12-20 | Outpatient (CLI) | payer MEDICARE, MEDICAID ==
[~2019-12-20] MED LIST changes: -NS 1,000 ML IV ONE
--- NOTE | 2019-12-20 11:37 | REP ---
INDICATION: M95.4 CHEST WALL DEFORMITY. COMPARISON: MRI 05/08/2019. TECHNIQUE: Real-time sonographic evaluation of left breast performed. FINDINGS: In the left chest wall anterior edge the to 12 o'clock region of the left breast there is an oval mildly heterogeneous primarily hypoechoic oval nodule containing 2 ill-defined hyperechoic components 5-7 mm in diameter. The hypoechoic nodule measures approximately 2.0 x 1.9 x 0.8 cm and corresponds to the nodule seen on the mammogram. This appears to follow fat signal on all MRI sequences and is consistent with a lipoma.. IMPRESSION: BIRADS/ACR category 2 benign. Ultrasound confirms an oval hypoechoic nodule at the anterior margin of the left chest wall, 12 o'clock left breast, corresponding to nodule seen on the prior MRI. 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 RECOMMENDATION: Yearly screening mammography, with supplemental screening MRI of the breasts for patients with an elevated lifetime risk of breast cancer of 20% or greater. <Electronically signed by Jeff Harrison > 12/20/19 [id number]
== END ==
LOC: M WHC 06:49
PROVIDERS: ATTEND Advanced Practice Midwife
DX: N63.23 Unspecified lump in the left breast, lower outer quadrant (principal); M95.4 Acquired deformity of chest and rib

== ENCOUNTER → 2020-02-19 | Outpatient (CLI) | payer MEDICARE, MEDICAID ==
[2020-02-19 11:53] LABS: BASO # 0.1 10^3/uL (0.0-0.2); BASO % 0.8 % (0.0-1.0); EOS # 0.2 10^3/uL (0.0-0.5); HEMATOCRIT 41.3 % (36.0-47.0); HEMOGLOBIN 13.7 g/dl (12.0-15.5); LYMPH # 2.3 10^3/uL (1.5-5.0); LYMPH % 36.5 % (24.0-44.0); MEAN CORPUSCULAR HEMOGLOBIN 31.8 pg (27.0-33.0); MEAN CORPUSCULAR HGB CONC 33.2 g/dl (32.0-36.5); MEAN CORPUSCULAR VOLUME 95.8 fl (80.0-96.0); MONO # 0.5 10^3/uL (0.0-0.8); MONO % 7.3 % (0.0-5.0); NEUTROPHILS # 3.3 10^3/uL (1.5-8.5); NEUTROPHILS % 52.2 % (36.0-66.0); PLATELET COUNT, AUTOMATED 254 10^3/uL (150-450); RED BLOOD COUNT 4.31 10^6/uL (4.00-5.40); WHITE BLOOD COUNT 6.3 10^3/uL (4.0-10.0)
[2020-02-19 12:22] LABS: ALBUMIN 3.9 GM/DL (3.2-5.2); ALT/SGPT 19 U/L (12-78); AMYLASE 34 U/L (25-115); BILIRUBIN,TOTAL 0.4 MG/DL (0.2-1.0); BLOOD UREA NITROGEN 7 MG/DL (7-18); CARBON DIOXIDE LEVEL 27 MEQ/L (21-32); CHLORIDE LEVEL 110 MEQ/L (98-107); CREATININE FOR GFR 1.01 MG/DL (0.55-1.30); GLOMERULAR FILTRATION RATE > 60.0 (>58); GLUCOSE, FASTING 90 MG/DL (70-100); LIPASE 80 U/L (73-393); POTASSIUM SERUM 4.3 MEQ/L (3.5-5.1); SODIUM LEVEL 143 MEQ/L (136-145); TOTAL PROTEIN 6.7 GM/DL (6.4-8.2)
== END ==
LOC: M LAB 10:49
PROVIDERS: ATTEND Physician Assistant Medical
DX: R10.12 Left upper quadrant pain (principal)

== ENCOUNTER → 2020-03-03 | Outpatient (REF) | payer MEDICARE, MEDICAID | LOC: M LAB REF 10:35 | PROVIDERS: ATTEND Physician Assistant Medical | DX: R19.5 Other fecal abnormalities (principal) ==

== ENCOUNTER 2020-05-08 12:29 | Emergency (ER) | payer MEDICARE, MEDICAID ==
[~2020-05-08] VITALS: Ht 162.6 cm; Wt 71.8 kg
[~2020-05-08 12:29] MED LIST changes: -QUET1TAB10 PO; +QUET300T2 PO
[2020-05-08] MEDS ORDERED: NS 1,000 ML IV SCH (12:36)
[2020-05-08] MEDS ORDERED: GI COCKTAIL 50ML BTL(HYOSCYAMINE/MAALOX/LIDOCAINE VISCOUS)(1:3:1) PO ONE (12:40)
--- NOTE | 2020-05-08 12:59 | REP ---
INDICATION: CHEST PAIN COMPARISON: 07/22/2019 TECHNIQUE: Portable AP view of the chest FINDINGS: The mediastinum and cardiac silhouette are stable and within normal limits for portable technique. The lung luther are clear without acute consolidation, effusion, or pneumothorax. Skeletal structures are intact. IMPRESSION: No acute cardiopulmonary process appreciated. <Electronically signed by Henrik Finnegan > 05/08/20 [id number]
[2020-05-08 13:40] LABS: BASO # 0.1 10^3/uL (0.0-0.2); BASO % 0.9 % (0.0-1.0); EOS # 0.3 10^3/uL (0.0-0.5); HEMATOCRIT 38.8 % (36.0-47.0); HEMOGLOBIN 12.9 g/dl (12.0-15.5); LYMPH # 1.9 10^3/uL (1.5-5.0); LYMPH % 33.2 % (24.0-44.0); MEAN CORPUSCULAR HEMOGLOBIN 31.7 pg (27.0-33.0); MEAN CORPUSCULAR HGB CONC 33.2 g/dl (32.0-36.5); MEAN CORPUSCULAR VOLUME 95.3 fl (80.0-96.0); MONO # 0.5 10^3/uL (0.0-0.8); MONO % 8.1 % (2.0-8.0); NEUTROPHILS % 52.5 % (36.0-66.0); PLATELET COUNT, AUTOMATED 232 10^3/uL (150-450); RED BLOOD COUNT 4.07 10^6/uL (4.00-5.40); WHITE BLOOD COUNT 5.8 10^3/uL (4.0-10.0)
[2020-05-08 13:50] LABS: INR 0.97; PROTHROMBIN TIME 13.1 SECONDS (12.5-14.3)
[2020-05-08 14:10] LABS: ALBUMIN 3.4 GM/DL (3.2-5.2); ALT/SGPT 15 U/L (12-78); BILIRUBIN,DIRECT < 0.1 MG/DL (0.0-0.2); BILIRUBIN,TOTAL 0.2 MG/DL (0.2-1.0); BLOOD UREA NITROGEN 10 MG/DL (7-18); CALCIUM LEVEL 8.6 MG/DL (8.5-10.1); CARBON DIOXIDE LEVEL 24 MEQ/L (21-32); CHLORIDE LEVEL 111 MEQ/L (98-107); CK-MB VALUE MASS < 1.0 NG/ML (<3.6); CPK CREATINE PHOSPHOKINASE 76 U/L (26-192); CREATININE FOR GFR 1.05 MG/DL (0.55-1.30); GLOMERULAR FILTRATION RATE > 60.0 (>58); GLUCOSE, FASTING 93 MG/DL (70-100); LIPASE 71 U/L (73-393); MB/CK RELATIVE INDEX 1.32 (< OR =4); POTASSIUM SERUM 4.3 MEQ/L (3.5-5.1); SODIUM LEVEL 141 MEQ/L (136-145); TROPONIN I < 0.02 NG/ML (< 0.10)
[2020-05-08 18:00] VITALS: BP 119/73
[2020-05-08 18:29] LABS: CK-MB VALUE MASS < 1.0 NG/ML (<3.6); CPK CREATINE PHOSPHOKINASE 65 U/L (26-192); MB/CK RELATIVE INDEX 1.54 (< OR =4); TROPONIN I < 0.02 NG/ML (< 0.10)
--- NOTE | 2020-05-08 18:50 | ECGEPIP ---
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
--- NOTE | 2020-05-08 18:54 | ECGEPIP ---
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
== END 2020-05-08 18:24 | disposition home or self-care (01) ==
LOC: M ED 12:29 → EDBD 12:29 → M ED 18:24
DX: R07.89 Other chest pain (principal); R00.2 Palpitations; I10 Essential (primary) hypertension; K21.9 Gastro-esophageal reflux disease without esophagitis; I25.10 Atherosclerotic heart disease of native coronary artery without angina pectoris; G43.909 Migraine, unspecified, not intractable, without status migrainosus; Z79.899 Other long term (current) drug therapy; Z79.82 Long term (current) use of aspirin; Z88.1 Allergy status to other antibiotic agents; Z88.8 Allergy status to other drugs, medicaments and biological substances; F17.210 Nicotine dependence, cigarettes, uncomplicated

== ENCOUNTER 2020-07-10 16:38 | Emergency (ER) | payer MEDICARE, MEDICAID ==
[~2020-07-10] VITALS: Ht 160 cm; Wt 76.8 kg
[~2020-07-10 16:38] MED LIST changes: -SIME180C PO; +SIME180C25 PO
--- NOTE | 2020-07-10 17:08 | REP ---
INDICATION: CHEST PAIN. COMPARISON: 05/08/2020. TECHNIQUE: Single portable AP view of the chest was performed. FINDINGS: There is no acute infiltrate or pulmonary edema. Lungs are clear. The heart is not significantly enlarged. The mediastinal silhouette is unremarkable. The visualized osseous structures are intact. IMPRESSION: No acute pulmonary disease. <Electronically signed by Jeff Harrison > 07/10/20 [id number]
[2020-07-10 18:00] LABS: BASO # 0.1 10^3/uL (0.0-0.2); BASO % 0.7 % (0.0-1.0); EOS # 0.3 10^3/uL (0.0-0.5); EOS % 3.8 % (0.0-3.0); HEMATOCRIT 42.5 % (36.0-47.0); HEMOGLOBIN 13.9 g/dl (12.0-15.5); LYMPH # 2.5 10^3/uL (1.5-5.0); LYMPH % 28.6 % (24.0-44.0); MEAN CORPUSCULAR HEMOGLOBIN 31.9 pg (27.0-33.0); MEAN CORPUSCULAR HGB CONC 32.7 g/dl (32.0-36.5); MEAN CORPUSCULAR VOLUME 97.5 fl (80.0-96.0); MONO # 0.8 10^3/uL (0.0-0.8); MONO % 8.9 % (2.0-8.0); NEUTROPHILS % 57.7 % (36.0-66.0); PLATELET COUNT, AUTOMATED 280 10^3/uL (150-450); RED BLOOD COUNT 4.36 10^6/uL (4.00-5.40); WHITE BLOOD COUNT 8.7 10^3/uL (4.0-10.0)
[2020-07-10 18:10] LABS: INR 0.97; PARTIAL THROMBOPLASTIN TIME 31.8 SECONDS (24.2-38.5); PROTHROMBIN TIME 13.1 SECONDS (12.5-14.3)
[2020-07-10 18:19] LABS: ALBUMIN 3.8 GM/DL (3.2-5.2); ALT/SGPT 20 U/L (12-78); BILIRUBIN,DIRECT 0.1 MG/DL (0.0-0.2); BILIRUBIN,TOTAL 0.2 MG/DL (0.2-1.0); BLOOD UREA NITROGEN 10 MG/DL (7-18); CALCIUM LEVEL 8.8 MG/DL (8.5-10.1); CARBON DIOXIDE LEVEL 26 MEQ/L (21-32); CHLORIDE LEVEL 107 MEQ/L (98-107); CK-MB VALUE MASS < 1.0 NG/ML (<3.6); CPK CREATINE PHOSPHOKINASE 93 U/L (26-192); GLOMERULAR FILTRATION RATE 47.8 (>58); GLUCOSE, FASTING 85 MG/DL (70-100); LIPASE 54 U/L (73-393); MB/CK RELATIVE INDEX 1.08 (< OR =4); POTASSIUM SERUM 3.9 MEQ/L (3.5-5.1); SODIUM LEVEL 138 MEQ/L (136-145); TOTAL PROTEIN 7.1 GM/DL (6.4-8.2); TROPONIN I < 0.02 NG/ML (< 0.10)
[2020-07-10] MEDS ORDERED: CLON-412 (20:05)
[2020-07-10] MEDS ORDERED: TOPI100T9 (20:05)
[2020-07-10] MEDS ORDERED: MIRA3350 (20:05)
[2020-07-10] MEDS ORDERED: DULO1CAP6 (20:05)
[2020-07-10 23:30] VITALS: BP 105/60
--- NOTE | 2020-07-11 13:47 | ECGEPIP ---
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
--- NOTE | 2020-07-11 13:51 | ECGEPIP ---
[facility] - ED Test Date: 2020-07-10 Pat Name: SCOT ALVA Department: Room: - Gender: Female Hand Reamer: Bridget MONREAL : 1975 Requested By: Marielle Ortega Order Number: [id number] Reading MD: Marielle Ortega Measurements Intervals [place] Rate: 71 P: 52 [place]: 188 QRS: -4 QRSD: 80 T: 28 QT: 404 QTc: 439 Interpretive Statements Normal sinus rhythm NSTTW abnormalities similar 07/10/20 Electronically Signed on 07-11-2020 13:51:03 EDT by Marielle Ortega
== END 2020-07-10 23:36 | disposition home or self-care (01) ==
LOC: M ED 16:38
DX: R07.9 Chest pain, unspecified (principal); E78.9 Disorder of lipoprotein metabolism, unspecified; F17.200 Nicotine dependence, unspecified, uncomplicated; Z79.82 Long term (current) use of aspirin; Z79.899 Other long term (current) drug therapy; Z88.1 Allergy status to other antibiotic agents; Z88.8 Allergy status to other drugs, medicaments and biological substances; Z82.49 Family history of ischemic heart disease and other diseases of the circulatory system; Z90.49 Acquired absence of other specified parts of digestive tract; Z98.890 Other specified postprocedural states

== ENCOUNTER → 2020-07-16 | Outpatient (CLI) | payer MEDICARE, MEDICAID ==
[~2020-07-16] MED LIST changes: +CLON-412; +DULO1CAP6; +GASTROGRAFIN SOLUTION 30ML (Q9963) As Ordered ONE; +ISOVUE-370 76% 100ML VIAL As Ordered ONE; +MIRA3350; +TOPI100T9
[2020-07-16 13:12] LABS: BASO # 0.1 10^3/uL (0.0-0.2); BASO % 0.8 % (0.0-1.0); EOS # 0.3 10^3/uL (0.0-0.5); EOS % 3.6 % (0.0-3.0); HEMOGLOBIN 12.1 g/dl (12.0-15.5); LYMPH # 2.4 10^3/uL (1.5-5.0); LYMPH % 30.9 % (24.0-44.0); MEAN CORPUSCULAR HEMOGLOBIN 31.3 pg (27.0-33.0); MEAN CORPUSCULAR HGB CONC 32.7 g/dl (32.0-36.5); MEAN CORPUSCULAR VOLUME 95.9 fl (80.0-96.0); MONO # 0.7 10^3/uL (0.0-0.8); MONO % 8.6 % (2.0-8.0); NEUTROPHILS # 4.3 10^3/uL (1.5-8.5); NEUTROPHILS % 55.5 % (36.0-66.0); PLATELET COUNT, AUTOMATED 262 10^3/uL (150-450); RED BLOOD COUNT 3.86 10^6/uL (4.00-5.40); WHITE BLOOD COUNT 7.8 10^3/uL (4.0-10.0)
[2020-07-16 13:54] LABS: ALBUMIN 3.3 GM/DL (3.2-5.2); ALT/SGPT 18 U/L (12-78); AMYLASE 32 U/L (25-115); BILIRUBIN,TOTAL 0.2 MG/DL (0.2-1.0); BLOOD UREA NITROGEN 11 MG/DL (7-18); CALCIUM LEVEL 8.8 MG/DL (8.5-10.1); CARBON DIOXIDE LEVEL 24 MEQ/L (21-32); CHLORIDE LEVEL 111 MEQ/L (98-107); CREATININE FOR GFR 0.94 MG/DL (0.55-1.30); GLOMERULAR FILTRATION RATE > 60.0 (>58); GLUCOSE, FASTING 75 MG/DL (70-100); LIPASE 84 U/L (73-393); POTASSIUM SERUM 4.4 MEQ/L (3.5-5.1); SODIUM LEVEL 141 MEQ/L (136-145)
--- NOTE | 2020-07-16 15:35 | REP ---
INDICATION: PERSISTENT LUQ PAIN / LABS 1ST. COMPARISON: 07/03/2020 from an outside institution on the latest prior TECHNIQUE: Standard helical technique before and after the intravenous administration of 100 cc Isovue 370. No oral bowel preparatory contrast was administered prior to the exam. FINDINGS: The lung bases are clear and unchanged. The pre contrast enhanced portion of the examination shows hepatic and splenic densities to be within normal limits. There is no nephrolithiasis. Surgical clips are again seen in the gallbladder fossa from previous cholecystectomy. The postcontrast enhanced portion of the examination shows stable bilateral renal cysts. The liver, spleen, pancreas, and adrenal glands are within normal limits and unchanged. There is a tiny hepatic cyst in the quadrate lobe status quo. The abdominal aorta and para aortic regions are within normal limits and unchanged. There is no significant change in appearance of the bowel loops or the mesenteries. Once again, there is a large amount of colonic content. Once again, single loop of small bowel dips deep into the left hemipelvis. There is no free fluid or free air. Once again, the urinary bladder is mildly distended. Bone window technique throughout the examination shows no significant change in appearance of the osseous structures. IMPRESSION: There is been no significant change compared to the prior exam. Hepatic and renal cysts as described above. There is a large amount of colonic content which is essentially unchanged from the prior exam. There is chronic urinary bladder distension. There is no evidence of acute disease. Other findings as described above. <Electronically signed by Prudencio Traore > 07/16/20 [id number]
== END ==
LOC: M LAB 12:19 → M RAD 12:19
PROVIDERS: ATTEND Physician Assistant Medical
DX: N28.1 Cyst of kidney, acquired (principal); R10.12 Left upper quadrant pain
CPT/HCPCS: 36415; 74178; 80053; 82150; 83690; 85025; Q9963; Q9967

== ENCOUNTER → 2020-08-06 | Outpatient (CLI) | payer MEDICARE, MEDICAID ==
[~2020-08-06] MED LIST changes: -GASTROGRAFIN SOLUTION 30ML (Q9963) As Ordered ONE; -ISOVUE-370 76% 100ML VIAL As Ordered ONE
--- NOTE | 2020-08-06 13:38 | REPVR ---
PROCEDURE INFORMATION: Exam: MR Lumbar Spine Without Contrast Exam date and time: 08/06/2020 12:07 PM Age: 44 years old Clinical indication: Patient HX: Low back pain nki; Additional info: Lbp TECHNIQUE: Imaging protocol: Multiplanar magnetic resonance images of the lumbar spine without intravenous contrast. COMPARISON: MRI-LS SPINE W/O FOLL WITH CON 02/06/2019 6:41 PM FINDINGS: Vertebrae: Vertebral body heights are intact. Alignment is maintained. No pars defect is identified. A 1.7 cm hemangioma is again present in the T12 vertebral body. Spinal cord: The conus is unremarkable in appearance, with its tip at the L1 level. Multilevel findings: There are fairly similar, mild degrees of disc desiccation indicating intervertebral disc degeneration. L1-L2: No significant disc displacement. L2-L3: No significant disc displacement. L3-L4: No significant disc displacement. L4-L5: Similar minimal bulge without significant neural foraminal narrowing or spinal stenosis. L5-S1: Similar minimal bulge without significant neural foraminal narrowing or spinal stenosis. 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 Soft tissues: Unremarkable. Kidneys and ureters: High T2 signal bilateral renal lesions are again partially included, measuring up to at least 8.6 cm on the right and 4.6 cm on the left, suggestive of cysts. IMPRESSION: 1. Mild multilevel disc desiccation indicating intervertebral disk degeneration, fairly similar to 02/06/19, with similar minimal disc displacements as described. 2. Persistent bilateral renal lesions partially included, suggestive of cysts measuring up to at least 8.6 cm. May consider dedicated imaging. COMMENTS: If surgery is considered, recommend level confirmation. Electronically signed by: Sesar Frances On 08/06/2020 13:38:05 PM
== END ==
LOC: M PLARAD 10:58
PROVIDERS: ATTEND Anesthesiology Pain Medicine
DX: M54.5 Low back pain (principal); M51.26 Other intervertebral disc displacement, lumbar region; N28.89 Other specified disorders of kidney and ureter

== ENCOUNTER 2020-09-06 10:29 | Emergency (ER) | payer MEDICARE, MEDICAID ==
[~2020-09-06] VITALS: Ht 162.6 cm; Wt 72.7 kg
[~2020-09-06 10:29] MED LIST changes: -CYMB60CA3 PO; +CYMB60CA4 PO; +OMEP40CA4 PO; -OMEP40CA97 PO
[2020-09-06] MEDS ORDERED: diazePAM 10MG/2ML SYRINGE (J3360 PER 5MG) IV ONE (12:05)
[2020-09-06 12:45] VITALS: BP 109/61
== END 2020-09-06 13:16 | disposition home or self-care (01) ==
LOC: M ED 10:29 → EDBD 10:29 → M ED 13:16
DX: M62.838 Other muscle spasm (principal); I10 Essential (primary) hypertension; E78.5 Hyperlipidemia, unspecified; F33.9 Major depressive disorder, recurrent, unspecified; F41.9 Anxiety disorder, unspecified; Z79.899 Other long term (current) drug therapy; Z79.82 Long term (current) use of aspirin; Z88.1 Allergy status to other antibiotic agents; Z88.8 Allergy status to other drugs, medicaments and biological substances; F17.210 Nicotine dependence, cigarettes, uncomplicated
CPT/HCPCS: 71045; 80047; 84484; 93005; 93041; 94760; 96374; 99285; J3360

== ENCOUNTER 2020-10-16 09:38 | Emergency (ER) | payer MEDICARE, MEDICAID ==
[~2020-10-16] VITALS: Ht 162.6 cm; Wt 77.7 kg
[~2020-10-16 09:38] MED LIST changes: +CYMB60CA3 PO; -CYMB60CA4 PO
[2020-10-16] MEDS ORDERED: ACETAMINOPHEN TAB 650MG DOSE (2X325MG) PO ONE (10:25)
[2020-10-16] MEDS ORDERED: MORPHINE 2 MG/ML 1ML VIAL (J2270) IV ONE ×2 (10:25→12:25)
[2020-10-16 10:26] LABS: BASO # 0.1 10^3/uL (0.0-0.2); EOS # 0.2 10^3/uL (0.0-0.5); EOS % 3.2 % (0.0-3.0); HEMATOCRIT 37.3 % (36.0-47.0); HEMOGLOBIN 12.4 g/dl (12.0-15.5); LYMPH # 1.9 10^3/uL (1.5-5.0); LYMPH % 36.5 % (24.0-44.0); MEAN CORPUSCULAR HEMOGLOBIN 31.6 pg (27.0-33.0); MEAN CORPUSCULAR HGB CONC 33.2 g/dl (32.0-36.5); MEAN CORPUSCULAR VOLUME 95.2 fl (80.0-96.0); MONO # 0.5 10^3/uL (0.0-0.8); MONO % 8.6 % (2.0-8.0); NEUTROPHILS # 2.6 10^3/uL (1.5-8.5); NEUTROPHILS % 50.3 % (36.0-66.0); PLATELET COUNT, AUTOMATED 216 10^3/uL (150-450); RED BLOOD COUNT 3.92 10^6/uL (4.00-5.40); WHITE BLOOD COUNT 5.2 10^3/uL (4.0-10.0)
--- NOTE | 2020-10-16 10:31 | REP ---
INDICATION: CHEST PAIN. COMPARISON: 09/06/2020. TECHNIQUE: Single portable AP view of the chest was performed. FINDINGS: There is no acute infiltrate or pulmonary edema. Lungs are clear. The heart is not significantly enlarged. The mediastinal silhouette is unremarkable. The visualized osseous structures are intact. IMPRESSION: No acute pulmonary disease. <Electronically signed by Jeff Harrison > 10/16/20 [id number]
[2020-10-16 10:55] LABS: ALBUMIN 3.5 GM/DL (3.2-5.2); ALT/SGPT 17 U/L (12-78); BILIRUBIN,DIRECT < 0.1 MG/DL (0.0-0.2); BILIRUBIN,TOTAL 0.3 MG/DL (0.2-1.0); BLOOD UREA NITROGEN 8 MG/DL (7-18); CALCIUM LEVEL 8.5 MG/DL (8.5-10.1); CARBON DIOXIDE LEVEL 23 MEQ/L (21-32); CHLORIDE LEVEL 117 MEQ/L (98-107); CREATININE FOR GFR 0.93 MG/DL (0.55-1.30); GLOMERULAR FILTRATION RATE > 60.0 (>58); GLUCOSE, FASTING 85 MG/DL (70-100); LIPASE 68 U/L (73-393); POTASSIUM SERUM 3.4 MEQ/L (3.5-5.1); SODIUM LEVEL 146 MEQ/L (136-145); TOTAL PROTEIN 6.1 GM/DL (6.4-8.2)
[2020-10-16] MEDS ORDERED: ISOVUE-370 76% 100ML VIAL As Ordered ONE (11:21)
--- NOTE | 2020-10-16 11:56 | REP ---
INDICATION: left sided chestpain ro pe. COMPARISON: Radiograph today. MRI thoracic spine 02/06/2019. TECHNIQUE: CT angiogram chest performed following the intravenous administration of 100 cc of Isovue 370. Sagittal and coronal reconstruction images are performed. FINDINGS: Lungs: Clear, no infiltrate or nodule. Mediastinum: No adenopathy. Pulmonary arteries: No evidence of pulmonary embolism. Stephanie: No adenopathy. Axilla: No adenopathy. Pleura: No effusion. Heart: Not enlarged. Thoracic aorta: No aneurysm or dissection. Upper abdominal structures: A 1.2 cm cyst is again seen in the left lobe of the liver. There has been a prior cholecystectomy. Bilateral renal cysts are again noted. Visualized osseous structures: There are chronic compression deformities of T5 and T6, stable since 02/06/2019. IMPRESSION: No CT evidence of pulmonary embolism. No infiltrate seen. <Electronically signed by Jeff Harrison > 10/16/20 [id number]
[2020-10-16 15:28] VITALS: BP 151/87
--- NOTE | 2020-10-16 19:20 | ECGEPIP ---
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
--- NOTE | 2020-10-16 19:31 | ECGEPIP ---
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
== END 2020-10-16 15:35 | disposition home or self-care (01) ==
LOC: M ED 09:38
DX: R07.9 Chest pain, unspecified (principal); J44.9 Chronic obstructive pulmonary disease, unspecified; D50.9 Iron deficiency anemia, unspecified; I25.10 Atherosclerotic heart disease of native coronary artery without angina pectoris; K21.9 Gastro-esophageal reflux disease without esophagitis; I25.2 Old myocardial infarction; Z79.899 Other long term (current) drug therapy; Z79.82 Long term (current) use of aspirin; Z88.1 Allergy status to other antibiotic agents; Z88.8 Allergy status to other drugs, medicaments and biological substances; F17.210 Nicotine dependence, cigarettes, uncomplicated; F12.20 Cannabis dependence, uncomplicated
CPT/HCPCS: 71045; 71275; 80047; 80048; 80076; 83690; 84439; 84443; 84484; 85025; 93005; 93041; 94760; 96374; 96376; 99285; J2270; Q9967

== ENCOUNTER 2021-04-25 12:50 | Emergency (ER) | payer MEDICARE, MEDICAID ==
[~2021-04-25] VITALS: Ht 162.6 cm; Wt 77.3 kg
[~2021-04-25 12:50] MED LIST changes: -CYMB60CA3 PO; +CYMB60CA4 PO
[2021-04-25] MEDS ORDERED: ACETAMINOPHEN 325 MG TAB PO ONE (14:25)
[2021-04-25 16:12] VITALS: BP 133/76
== END 2021-04-25 16:30 | disposition home or self-care (01) ==
LOC: M ED 12:50 → EDBD 12:50 → M ED 16:30
DX: R07.89 Other chest pain (principal); J44.9 Chronic obstructive pulmonary disease, unspecified; E78.5 Hyperlipidemia, unspecified; D50.9 Iron deficiency anemia, unspecified; F31.9 Bipolar disorder, unspecified; F25.9 Schizoaffective disorder, unspecified; G43.909 Migraine, unspecified, not intractable, without status migrainosus; G89.4 Chronic pain syndrome; F17.210 Nicotine dependence, cigarettes, uncomplicated; Z88.1 Allergy status to other antibiotic agents; Z88.8 Allergy status to other drugs, medicaments and biological substances; Z79.899 Other long term (current) drug therapy; Z79.82 Long term (current) use of aspirin

== ENCOUNTER → 2021-08-14 | Outpatient (REF) | payer MEDICARE, MEDICAID ==
[~2021-08-14] MED LIST changes: +EXCETAB32 PO; -EXCETAB33 PO
[2021-08-14 11:59] LABS: APPEARANCE, URINE CLOUDY (CLEAR); BACTERIA, URINE AUTO 1+ (NEGATIVE); BILIRUBIN, URINE AUTO NEGATIVE (NEGATIVE); BLOOD, URINE BLOOD NEGATIVE (NEGATIVE); COLOR, URINE YELLOW (YELLOW); GLUCOSE, URINE (UA) AUTO NEGATIVE (NEGATIVE); KETONE, URINE AUTO NEGATIVE (NEGATIVE); LEUKOCYTE ESTERASE, URINE AUTO 3+ (NEGATIVE); NITRITE, URINE AUTO NEGATIVE (NEGATIVE); PROTEIN, URINE AUTO 1+ mg/dL (NEGATIVE); RBC, URINE AUTO 10 /HPF (0-3); SPECIFIC GRAVITY URINE AUTO 1.017 (1.002-1.035); SQUAMOUS EPITHELIAL CELL UR AU 14 /HPF (0-6); UROBILINOGEN, URINE AUTO 0.2 mg/dL (0.0-2.0); WBC, URINE AUTO TNTC /HPF (0-3)
== END ==
LOC: M LAB REF 11:39
PROVIDERS: ATTEND Physician Assistant Medical
DX: R30.0 Dysuria (principal)

== ENCOUNTER 2021-09-20 12:04 | Emergency (ER) | payer MEDICARE, MEDICAID ==
[2021-09-20 13:15] LABS: BASO # 0.1 10^3/uL (0.0-0.2); BASO % 1.3 % (0.0-1.0); EOS % 0.9 % (0.0-3.0); HEMATOCRIT 39.2 % (36.0-47.0); HEMOGLOBIN 12.9 g/dl (12.0-15.5); LYMPH # 1.3 10^3/uL (1.5-5.0); LYMPH % 29.3 % (24.0-44.0); MEAN CORPUSCULAR HEMOGLOBIN 30.1 pg (27.0-33.0); MEAN CORPUSCULAR HGB CONC 32.9 g/dl (32.0-36.5); MEAN CORPUSCULAR VOLUME 91.6 fl (80.0-96.0); MONO # 0.3 10^3/uL (0.0-0.8); MONO % 7.1 % (2.0-8.0); NEUTROPHILS # 2.8 10^3/uL (1.5-8.5); NEUTROPHILS % 61.2 % (36.0-66.0); PLATELET COUNT, AUTOMATED 300 10^3/uL (150-450); RED BLOOD COUNT 4.28 10^6/uL (4.00-5.40); WHITE BLOOD COUNT 4.5 10^3/uL (4.0-10.0)
[2021-09-20 13:26] LABS: INR 0.98; PROTHROMBIN TIME 13.4 SECONDS (12.7-14.5)
[2021-09-20 13:27] LABS: PARTIAL THROMBOPLASTIN TIME 29.5 SECONDS (25.9-37.0)
[2021-09-20 13:41] LABS: CK-MB VALUE MASS < 1.0 NG/ML (<3.6); CPK CREATINE PHOSPHOKINASE 127 U/L (26-192); MB/CK RELATIVE INDEX 0.79 (< OR =4)
[2021-09-20 13:49] LABS: ALT/SGPT 14 U/L (12-78); BILIRUBIN,DIRECT < 0.1 MG/DL (0.0-0.2); BILIRUBIN,TOTAL 0.3 MG/DL (0.2-1.0); BLOOD UREA NITROGEN 7 MG/DL (7-18); CARBON DIOXIDE LEVEL 21 MEQ/L (21-32); CHLORIDE LEVEL 115 MEQ/L (98-107); FREE T4 1.21 NG/DL (0.76-1.46); GLOMERULAR FILTRATION RATE > 60.0 (>58); GLUCOSE, FASTING 91 MG/DL (70-100); LIPASE 54 U/L (73-393); NT-PRO BNP 80 PG/ML (<125); POTASSIUM SERUM 3.9 MEQ/L (3.5-5.1); SODIUM LEVEL 145 MEQ/L (136-145)
[2021-09-20] MEDS ORDERED: KETOROLAC 30 MG/ML 1ML VIAL IV ONE (14:15)
[2021-09-20] MEDS ORDERED: ISOVUE-370 76% 100ML VIAL As Ordered ONE (14:28)
[2021-09-20 16:14] LABS: CK-MB VALUE MASS < 1.0 NG/ML (<3.6); CPK CREATINE PHOSPHOKINASE 111 U/L (26-192)
[2021-09-20] MEDS ORDERED: NORCO, ANEXSIA 5/325MG TABLET (HYDROcodone/ACETAMINOPHEN) PO ONE (16:45)
[2021-09-20] MEDS ORDERED: ONDANSETRON 4MG ORAL DISINTEGRATING TAB PO ONE (16:45)
[2021-09-20] MEDS ORDERED: KETO10TAB PO (17:02)
[2021-09-20 17:15] VITALS: BP 169/96
== END 2021-09-20 17:28 | disposition home or self-care (01) ==
LOC: EDBD 12:04 → M ED 12:04
DX: R07.89 Other chest pain (principal); R06.02 Shortness of breath; E78.5 Hyperlipidemia, unspecified; J44.9 Chronic obstructive pulmonary disease, unspecified; F20.9 Schizophrenia, unspecified; F17.200 Nicotine dependence, unspecified, uncomplicated; Z79.51 Long term (current) use of inhaled steroids; Z79.82 Long term (current) use of aspirin; Z88.1 Allergy status to other antibiotic agents; Z88.8 Allergy status to other drugs, medicaments and biological substances; Z90.49 Acquired absence of other specified parts of digestive tract; Z90.710 Acquired absence of both cervix and uterus; Z98.890 Other specified postprocedural states
CPT/HCPCS: 71045; 71275; 80048; 80076; 82550; 82553; 83690; 83880; 84439; 84443; 84484; 85025; 85610; 85730; 93005; 93041; 94760; 96374; 99285; J1885; Q9967

== ENCOUNTER → 2022-01-11 | Outpatient (REF) | payer MEDICARE, MEDICAID ==
[~2022-01-11] MED LIST changes: +KETO10TAB PO; -QUET300T53 PO; +QUET300T93 PO
[2022-01-11 18:04] LABS: BASO # 0.1 10^3/uL (0.0-0.2); BASO % 1.1 % (0.0-1.0); EOS # 0.3 10^3/uL (0.0-0.5); EOS % 4.4 % (0.0-3.0); HEMATOCRIT 43.5 % (36.0-47.0); HEMOGLOBIN 13.8 g/dl (12.0-15.5); LYMPH # 2.3 10^3/uL (1.5-5.0); LYMPH % 31.8 % (24.0-44.0); MEAN CORPUSCULAR HEMOGLOBIN 30.1 pg (27.0-33.0); MEAN CORPUSCULAR HGB CONC 31.7 g/dl (32.0-36.5); MEAN CORPUSCULAR VOLUME 94.8 fl (80.0-96.0); MONO # 0.6 10^3/uL (0.0-0.8); MONO % 8.9 % (2.0-8.0); NEUTROPHILS # 3.8 10^3/uL (1.5-8.5); NEUTROPHILS % 53.5 % (36.0-66.0); PLATELET COUNT, AUTOMATED 313 10^3/uL (150-450); RED BLOOD COUNT 4.59 10^6/uL (4.00-5.40); WHITE BLOOD COUNT 7.1 10^3/uL (4.0-10.0)
[2022-01-11 20:39] LABS: ALT/SGPT 15 U/L (7.0-40); BILIRUBIN,TOTAL 0.3 MG/DL (0.3-1.2); BLOOD UREA NITROGEN 9 MG/DL (9-23); CALCIUM LEVEL 9.2 MG/DL (8.5-10.1); CARBON DIOXIDE LEVEL 26 MMOL/L (20-31); CHLORIDE LEVEL 103 MMOL/L (98-107); CREATININE FOR GFR 0.76 MG/DL (0.55-1.30); FREE T4 0.96 NG/DL (0.89-1.76); GLOMERULAR FILTRATION RATE > 60.0 (>58); GLUCOSE, FASTING 84 MG/DL (60-100); POTASSIUM SERUM 4.8 MMOL/L (3.5-5.1); SODIUM LEVEL 139 MMOL/L (136-145); THYROID STIMULATING HORMONE 1.662 uIU/ML (0.55-4.78); TOTAL PROTEIN 6.5 G/DL
== END ==
LOC: M LAB REF 16:26
PROVIDERS: ATTEND Family Medicine Addiction Medicine
DX: R53.1 Weakness (principal)

== ENCOUNTER 2022-02-02 14:33 | Emergency (ER) | payer MEDICARE, MEDICAID ==
[~2022-02-02] VITALS: Ht 162.6 cm; Wt 79.1 kg
[2022-02-02] MEDS ORDERED: AMOX875T2 PO (14:46)
[2022-02-02] MEDS ORDERED: RABIES IMMUNE GLOBULIN 1500 INTERNATIONAL UNIT/5ML VIAL IM.IMMUN ONE ×2 (14:55→16:00)
[2022-02-02] MEDS ORDERED: RABIES VACCINE HUMAN 2.5 INTERNATIONAL UNITS/ML VIAL IM.IMMUN ONE (14:55)
[2022-02-02 16:09] VITALS: BP 135/79
== END 2022-02-02 16:16 | disposition home or self-care (01) ==
LOC: M ED 14:33
DX: L03.113 Cellulitis of right upper limb (principal); L03.114 Cellulitis of left upper limb; Z20.3 Contact with and (suspected) exposure to rabies; Z23 Encounter for immunization; S61.459A Open bite of unspecified hand, initial encounter; W55.01XA Bitten by cat, initial encounter

== ENCOUNTER 2022-02-26 21:14 | Emergency (ER) | payer MEDICARE, MEDICAID ==
[~2022-02-26 21:14] MED LIST changes: +AMOX875T2 PO
== END 2022-02-27 02:15 | disposition left against medical advice (07) ==
LOC: M ED 21:14 → EDBD 21:14 → M ED 02-27 02:15
DX: Z53.21 Procedure and treatment not carried out due to patient leaving prior to being seen by health care provider (principal)

== ENCOUNTER → 2022-09-26 | Outpatient (REF) | payer MEDICARE, MEDICAID ==
[~2022-09-26] MED LIST changes: +DICY-61 PO; -DICY10CA13 PO
[2022-09-26 14:05] LABS: CHOLESTEROL LEVEL 275 MG/DL (<200); HDL CHOLESTEROL 40.4 MG/DL (>40); NON-HDL-C 234.6 MG/DL; THYROID STIMULATING HORMONE 1.681 uIU/ML (0.55-4.78); TRIGLYCERIDES LEVEL 328 MG/DL (<150)
[2022-09-26 14:33] LABS: HIV 1&2 SCREEN NEGATIVE (NEGATIVE)
[2022-09-26 14:41] LABS: HEPATITIS C VIRUS ABY INDEX 0.12 INDEX (<0.8)
== END ==
LOC: M LAB REF 12:22
PROVIDERS: ATTEND Family Medicine Addiction Medicine
DX: E03.9 Hypothyroidism, unspecified (principal); Z11.3 Encounter for screening for infections with a predominantly sexual mode of transmission

== ENCOUNTER → 2023-04-24 | Outpatient (REF) | payer MEDICARE, MEDICAID ==
[~2023-04-24] MED LIST changes: +MECL-209 PO; -MECL1TAB31 PO
[2023-04-24 14:40] LABS: ALBUMIN 3.8 G/DL (3.2-5.2); ALKALINE PHOSPHATASE 110 U/L (46-116); ALT/SGPT < 9 U/L (7.0-40); AST/SGOT 12 U/L (<34); BILIRUBIN,TOTAL 0.2 MG/DL (0.3-1.2); BLOOD UREA NITROGEN 7 MG/DL (9-23); CALCIUM LEVEL 9.5 MG/DL (8.5-10.1); CARBON DIOXIDE LEVEL 29 MMOL/L (20-31); CHLORIDE LEVEL 105 MMOL/L (98-107); CHOLESTEROL LEVEL 308 MG/DL (<200); CHOLESTEROL RISK RATIO 8.87 (<5); CREATININE FOR GFR 0.93 MG/DL (0.55-1.30); GLOMERULAR FILTRATION RATE > 60.0 (>58); GLUCOSE, FASTING 88 MG/DL (60-100); HDL CHOLESTEROL 34.7 MG/DL (>40); LDL CHOLESTEROL 223.3 MG/DL (<100); NON-HDL-C 273.3 MG/DL; POTASSIUM SERUM 5.4 MMOL/L (3.5-5.1); SODIUM LEVEL 136 MMOL/L (136-145); TOTAL PROTEIN 6.8 G/DL (5.7-8.2); TRIGLYCERIDES LEVEL 250 MG/DL (<150)
[2023-04-24 14:53] LABS: HEMOGLOBIN A1c 5.4 % (4.0-6.0)
== END ==
LOC: M LAB REF 13:24
PROVIDERS: ATTEND Family Medicine Addiction Medicine
DX: R73.03 Prediabetes (principal); Z79.899 Other long term (current) drug therapy

== ENCOUNTER → 2023-07-25 | Outpatient (REF) | payer MEDICARE, MEDICAID ==
[~2023-07-25] MED LIST changes: -KLON1TAB PO; +KLON1TAB13 PO
[2023-07-25 14:03] LABS: THYROID STIMULATING HORMONE 1.701 uIU/ML (0.55-4.78)
[2023-07-25 14:04] LABS: ALBUMIN 3.9 G/DL (3.2-5.2); ALKALINE PHOSPHATASE 111 U/L (46-116); ALT/SGPT < 9 U/L (7.0-40); AST/SGOT < 8 U/L (<34); BILIRUBIN,TOTAL 0.2 MG/DL (0.3-1.2); BLOOD UREA NITROGEN < 5 MG/DL (9-23); CALCIUM LEVEL 9.3 MG/DL (8.5-10.1); CARBON DIOXIDE LEVEL 26 MMOL/L (20-31); CHLORIDE LEVEL 106 MMOL/L (98-107); CHOLESTEROL LEVEL 327 MG/DL (<200); CHOLESTEROL RISK RATIO 8.07 (<5); CREATININE FOR GFR 0.86 MG/DL (0.55-1.30); GLOMERULAR FILTRATION RATE > 60.0 (>58); GLUCOSE, FASTING 96 MG/DL (60-100); HDL CHOLESTEROL 40.5 MG/DL (>40); LDL CHOLESTEROL 246.1 MG/DL (<100); NON-HDL-C 286.5 MG/DL; SODIUM LEVEL 139 MMOL/L (136-145); TOTAL PROTEIN 6.9 G/DL (5.7-8.2); TRIGLYCERIDES LEVEL 202 MG/DL (<150)
== END ==
LOC: M LAB REF 12:40
PROVIDERS: ATTEND Family Medicine Addiction Medicine
DX: E78.5 Hyperlipidemia, unspecified (principal)

== ENCOUNTER → 2023-11-02 | Outpatient (REF) | payer MEDICARE, MEDICAID ==
[2023-11-02 15:13] LABS: ALBUMIN 4.1 G/DL (3.2-5.2); ALKALINE PHOSPHATASE 136 U/L (46-116); ALT/SGPT 14 U/L (7.0-40); AST/SGOT 12 U/L (<34); BILIRUBIN,TOTAL 0.3 MG/DL (0.3-1.2); BLOOD UREA NITROGEN 7 MG/DL (9-23); CALCIUM LEVEL 9.2 MG/DL (8.5-10.1); CARBON DIOXIDE LEVEL 28 MMOL/L (20-31); CHLORIDE LEVEL 106 MMOL/L (98-107); CHOLESTEROL LEVEL 171 MG/DL (<200); CHOLESTEROL RISK RATIO 6.06 (<5); CREATININE FOR GFR 0.88 MG/DL (0.55-1.30); GLOMERULAR FILTRATION RATE > 60.0 (>58); GLUCOSE, FASTING 105 MG/DL (60-100); HDL CHOLESTEROL 28.2 MG/DL (>40); LDL CHOLESTEROL 108.8 MG/DL (<100); NON-HDL-C 142.8 MG/DL; POTASSIUM SERUM 3.8 MMOL/L (3.5-5.1); SODIUM LEVEL 136 MMOL/L (136-145); TRIGLYCERIDES LEVEL 170 MG/DL (<150)
[2023-11-02 15:14] LABS: THYROID STIMULATING HORMONE 2.128 uIU/ML (0.55-4.78)
== END ==
LOC: M LAB REF 14:08
PROVIDERS: ATTEND Family Medicine Addiction Medicine
DX: E78.5 Hyperlipidemia, unspecified (principal)

== ENCOUNTER → 2024-01-29 | Outpatient (REF) | payer MEDICARE, MEDICAID ==
[~2024-01-29] MED LIST changes: -SIME180C25 PO; +SIME1CAP4 PO
[2024-01-29 13:54] LABS: ALBUMIN 3.8 G/DL (3.2-5.2); ALKALINE PHOSPHATASE 93 U/L (35-104); ALT/SGPT 12 U/L (7.0-40); AST/SGOT < 8 U/L (<34); BILIRUBIN,TOTAL 0.3 MG/DL (0.3-1.2); BLOOD UREA NITROGEN 8 MG/DL (9-23); CALCIUM LEVEL 9.4 MG/DL (8.5-10.1); CARBON DIOXIDE LEVEL 31 MMOL/L (20-31); CHLORIDE LEVEL 106 MMOL/L (98-107); CHOLESTEROL LEVEL 191 MG/DL (<200); CHOLESTEROL RISK RATIO 5.05 (<5); CREATININE FOR GFR 0.93 MG/DL (0.55-1.30); GLOMERULAR FILTRATION RATE > 60.0 (>58); GLUCOSE, FASTING 103 MG/DL (60-100); HDL CHOLESTEROL 37.8 MG/DL (>40); LDL CHOLESTEROL 122.4 MG/DL (<100); NON-HDL-C 153.2 MG/DL; POTASSIUM SERUM 4.4 MMOL/L (3.5-5.1); SODIUM LEVEL 141 MMOL/L (136-145); TOTAL PROTEIN 6.5 G/DL (5.7-8.2); TRIGLYCERIDES LEVEL 154 MG/DL (<150)
[2024-01-29 13:56] LABS: THYROID STIMULATING HORMONE 1.568 uIU/ML (0.55-4.78)
[2024-01-29 15:10] LABS: HEMOGLOBIN A1c 5.5 % (4.0-6.0)
== END ==
LOC: M LAB REF 12:38
PROVIDERS: ATTEND Family Medicine Addiction Medicine
DX: R73.03 Prediabetes (principal); Z79.899 Other long term (current) drug therapy

== ENCOUNTER 2024-02-29 07:26 | Outpatient (RCR) | payer MEDICARE, MEDICAID | END 2024-03-29 | LOC: M PT 07:26 | PROVIDERS: ATTEND Family Medicine Addiction Medicine | DX: Z74.09 Other reduced mobility (principal); Z99.3 Dependence on wheelchair ==

== ENCOUNTER → 2024-04-12 | Outpatient (REF) | payer MEDICARE, MEDICAID ==
[2024-04-12 15:27] LABS: BASO # 0.1 10^3/uL (0.0-0.2); BASO % 0.6 % (0.0-1.0); EOS # 0.1 10^3/uL (0.0-0.5); EOS % 1.3 % (0.0-3.0); HEMATOCRIT 40.5 % (36.0-47.0); LYMPH # 2.9 10^3/uL (1.5-5.0); LYMPH % 34.3 % (24.0-44.0); MEAN CORPUSCULAR HEMOGLOBIN 30.3 pg (27.0-33.0); MEAN CORPUSCULAR HGB CONC 32.1 g/dl (32.0-36.5); MEAN CORPUSCULAR VOLUME 94.4 fl (80.0-96.0); MONO # 0.6 10^3/uL (0.0-0.8); MONO % 7.1 % (2.0-8.0); NEUTROPHILS # 4.8 10^3/uL (1.5-8.5); NEUTROPHILS % 56.2 % (36.0-66.0); PLATELET COUNT, AUTOMATED 260 10^3/uL (150-450); RED BLOOD COUNT 4.29 10^6/uL (4.00-5.40); WHITE BLOOD COUNT 8.6 10^3/uL (4.0-10.0)
[2024-04-12 15:33] LABS: FREE T4 1.1 NG/DL (0.89-1.76); THYROID STIMULATING HORMONE 3.339 uIU/ML (0.55-4.78)
[2024-04-12 15:41] LABS: FOLATE 3.2 NG/ML (>5.4)
== END ==
LOC: M LAB REF 13:22
PROVIDERS: ATTEND Family Medicine Addiction Medicine
DX: R53.83 Other fatigue (principal)

== ENCOUNTER → 2024-05-14 | Outpatient (CLI) | payer MEDICARE, MEDICAID | LOC: M RAD 09:49 | PROVIDERS: ATTEND Physician Assistant | DX: R06.02 Shortness of breath (principal) ==

== ENCOUNTER → 2024-05-28 | Outpatient (CLI) | payer MEDICARE, MEDICAID | LOC: M RAD 08:35 | PROVIDERS: ATTEND Physician Assistant | DX: R06.02 Shortness of breath (principal); R05.3 Chronic cough; Z87.891 Personal history of nicotine dependence ==

== ENCOUNTER → 2024-06-20 | Outpatient (CLI) | payer MEDICARE, MEDICAID ==
[~2024-06-20] MED LIST changes: +TOPI-257; -TOPI100T9
== END ==
LOC: M CARPUL 10:55
PROVIDERS: ATTEND Physician Assistant
DX: R06.02 Shortness of breath (principal)

== ENCOUNTER → 2024-06-21 | Outpatient (REF) | payer MEDICARE, MEDICAID ==
[2024-06-21 18:42] LABS: APPEARANCE, URINE HAZY (CLEAR); BACTERIA, URINE AUTO 1+ (NEGATIVE); BILIRUBIN, URINE AUTO NEGATIVE (NEGATIVE); BLOOD, URINE BLOOD 1+ (NEGATIVE); COLOR, URINE YELLOW (YELLOW); GLUCOSE, URINE (UA) AUTO NEGATIVE (NEGATIVE); KETONE, URINE AUTO NEGATIVE (NEGATIVE); LEUKOCYTE ESTERASE, URINE AUTO 3+ (NEGATIVE); MUCUS, URINE SMALL (NEGATIVE); NITRITE, URINE AUTO NEGATIVE (NEGATIVE); PROTEIN, URINE AUTO NEGATIVE (NEGATIVE); RBC, URINE AUTO 7 /HPF (0-3); SPECIFIC GRAVITY URINE AUTO 1.003 (1.002-1.035); SQUAMOUS EPITHELIAL CELL UR AU 1 /HPF (0-6); UROBILINOGEN, URINE AUTO 0.2 mg/dL (0.0-2.0); WBC, URINE AUTO 35 /HPF (0-3)
== END ==
LOC: M LAB REF 16:56
PROVIDERS: ATTEND Physician Assistant
DX: N39.0 Urinary tract infection, site not specified (principal)

== ENCOUNTER → 2024-10-11 | Outpatient (CLI) | payer MEDICARE, MEDICAID ==
[~2024-10-11] MED LIST changes: -PRAV40TA2 PO; +PRAV40TA85 PO
[2024-10-11 11:00] LABS: BASO # 0.0 10^3/uL (0.0-0.2); BASO % 0.7 % (0.0-1.0); EOS # 0.2 10^3/uL (0.0-0.5); EOS % 3.0 % (0.0-3.0); LYMPH # 1.9 10^3/uL (1.5-5.0); LYMPH % 33.6 % (24.0-44.0); MONO # 0.4 10^3/uL (0.0-0.8); MONO % 7.2 % (2.0-8.0); NEUTROPHILS # 3.1 10^3/uL (1.5-8.5); NEUTROPHILS % 55.0 % (36.0-66.0); PLATELET COUNT, AUTOMATED 254 10^3/uL (150-450)
[2024-10-11 11:16] LABS: ESTIMATED AVERAGE GLUCOSE 117.0 MG/DL (60-110)
[2024-10-11 11:30] LABS: ALT/SGPT 14.0 U/L (7.0-40); AST/SGOT 15.0 U/L (<34); CALCIUM LEVEL 8.6 MG/DL (8.5-10.1); CARBON DIOXIDE LEVEL 30.0 MMOL/L (20-31); CHLORIDE LEVEL 104.0 MMOL/L (98-107); CHOLESTEROL LEVEL 139.0 MG/DL (<200); CHOLESTEROL RISK RATIO 4.27 (<5); CREATININE FOR GFR 0.92 MG/DL (0.55-1.30); GLOMERULAR FILTRATION RATE 77.8 (>58); LDL CHOLESTEROL 85.5 MG/DL (<100); NON-HDL-C 106.5 MG/DL; POTASSIUM SERUM 4.7 MMOL/L (3.5-5.1); SODIUM LEVEL 139.0 MMOL/L (136-145); TRIGLYCERIDES LEVEL 105.0 MG/DL (<150)
[2024-10-11 11:32] LABS: PROLACTIN 42.3 NG/ML
== END ==
LOC: M LAB 10:15
PROVIDERS: ATTEND Physician Assistant
DX: Z51.81 Encounter for therapeutic drug level monitoring (principal); Z79.899 Other long term (current) drug therapy

== ENCOUNTER → 2024-10-23 | Outpatient (REF) | payer MEDICARE, MEDICAID ==
[2024-10-23 14:59] LABS: ALT/SGPT 13.0 U/L (7.0-40); AST/SGOT 13.0 U/L (<34); CALCIUM LEVEL 9.5 MG/DL (8.5-10.1); CARBON DIOXIDE LEVEL 30.0 MMOL/L (20-31); CHLORIDE LEVEL 101.0 MMOL/L (98-107); CHOLESTEROL LEVEL 135.0 MG/DL (<200); CHOLESTEROL RISK RATIO 4.39 (<5); CREATININE FOR GFR 0.97 MG/DL (0.55-1.30); GLOMERULAR FILTRATION RATE 73.0 (>58); LDL CHOLESTEROL 60.9 MG/DL (<100); NON-HDL-C 104.3 MG/DL; POTASSIUM SERUM 5.0 MMOL/L (3.5-5.1); SODIUM LEVEL 138.0 MMOL/L (136-145); TRIGLYCERIDES LEVEL 217.0 MG/DL (<150)
== END ==
LOC: M LAB REF 12:18
PROVIDERS: ATTEND Family Medicine Addiction Medicine
DX: E78.5 Hyperlipidemia, unspecified (principal)

== ENCOUNTER 2024-12-25 06:48 | Day surgery (SDC) | payer MEDICARE, MEDICAID ==
[~2024-12-25] VITALS: Ht 162.6 cm; Wt 73.7 kg
[~2024-12-25 06:48] MED LIST changes: +DULO1CAP6 PO; +ECOT81TA5 PO; +ONDA-282 PO; +RISP1SS PO; +SPIR12.9 INH
[2024-12-25] MEDS ORDERED: SIMETHICONE 40MG/0.6ML DROPS 30ML As Ordered ONE (06:51)
[2024-12-25] MEDS ORDERED: LIDOCAINE 2% 100 MG/5 ML SDV (FOR ANES.) As Ordered ONE (07:08)
[2024-12-25 07:59] VITALS: TEMP 97.1
[2024-12-25 08:20] VITALS: BP 134/80; O2SAT 95
== END 2024-12-25 08:39 | disposition home or self-care (01) ==
LOC: M OPP 06:48
PROVIDERS: ATTEND Internal Medicine Gastroenterology
DX: Z12.11 Encounter for screening for malignant neoplasm of colon (principal); K57.30 Diverticulosis of large intestine without perforation or abscess without bleeding; K64.0 First degree hemorrhoids; Z80.0 Family history of malignant neoplasm of digestive organs; R12 Heartburn; Z86.73 Personal history of transient ischemic attack (TIA), and cerebral infarction without residual deficits; Z88.1 Allergy status to other antibiotic agents; Z88.8 Allergy status to other drugs, medicaments and biological substances; Z79.82 Long term (current) use of aspirin; Z79.899 Other long term (current) drug therapy; J44.9 Chronic obstructive pulmonary disease, unspecified; F17.210 Nicotine dependence, cigarettes, uncomplicated
CPT/HCPCS: 43239; 88305; G0105; J3010

== ENCOUNTER → 2025-01-01 | Outpatient (CLI) | payer MEDICARE, MEDICAID | LOC: M RAD 10:29 | PROVIDERS: ATTEND Nurse Practitioner Acute Care | DX: I73.9 Peripheral vascular disease, unspecified (principal) ==